=== PATIENT | male | born 1990 | race Caucasian/White ===

== ENCOUNTER 2022-08-09 16:28 | Outpatient (CLI) | payer OTHER, SELFPAY ==
[2022-08-09 17:13] LABS: Lipase 33 U/L (13-60)
== END 2022-08-09 16:29 | disposition home or self-care (01) ==
LOC: LAB 16:29
PROVIDERS: PCP Family Medicine; Visit Provider Family Medicine
DX: R10.9 Unspecified abdominal pain (principal)
CPT/HCPCS: 83690

== ENCOUNTER → 2022-08-18 15:16 | Outpatient (BNVA) | payer OTHER, SELFPAY | PROVIDERS: PCP Family Medicine; Visit Provider Family Medicine | DX: B19.20 Unspecified viral hepatitis C without hepatic coma (principal); R10.9 Unspecified abdominal pain | CPT/HCPCS: 80053; 84443; 85025; 87522 ==

== ENCOUNTER 2022-10-04 17:42 | Emergency (ER) | payer OTHER, SELFPAY ==
[2022-10-04 18:16] VITALS: BP 135/76; PULSE 90; RESP 14; TEMP 36.7; O2SAT 98; BMI 23.5
--- NOTE | 2022-10-04 18:54 | W.ED.EXTPRO ---
HPI - Extremity Problem General: Chief complaint: Extremity Injury, Lower Stated complaint: Lower hip pain Time Seen by Provider: 10/04/22 17:59 History of Present Illness: Patient is a 32-year-old male that comes to the ED with right lower back pain. Patient says he was skateboarding and doing a lot of alleys. He thinks he strained his right lower back from skateboarding. He says he has had this pain in the past. Pain is rated an 8 out of 10 and it radiates down into his right thigh. Denies any bladder or bowel incontinence, lower extremity weakness or any pelvic anesthesia. Associated symptoms: Deny chest pain, fever(s) or rash Review of Systems Const: Denies: fever(s), chills or fatigue Eyes: Denies: change in vision or eye discomfort ENMT: Denies: throat pain, odynophagia, nasal discharge or nasal congestion Card: Denies: chest pain, palpitations, edema, swelling of feet/ankles, dyspnea on exertion or orthopnea Resp: Denies: dyspnea, productive cough or non-productive cough GI: Denies: abdominal pain, nausea, vomiting, diarrhea, constipation or hematochezia : Denies: flank pain, difficulty urinating, dysuria or hematuria Musc: Reports: back pain; Denies: neck pain or extremity swelling Skin/Breast: Denies: rash or new lesions Neuro: Denies: headache(s), numbness in extremities or weakness in extremities [facility] ED PFSH: Medical History Hepatitis C infection History of substance abuse Surgical History No history of previous surgery Family History Mother Cancer lymphoma Other Hypertension Denies family history of Diabetes CAD (coronary artery disease) Dementia Chronic kidney disease (CKD) Stroke Social History Smoking and tobacco status: former smoker Quit status (tobacco): has quit using tobacco Year quit tobacco: 2021 Alcohol intake: former Other details last substance use: hx iv drugs, meth, cocaine, opiods Number of children: 2 service: No Current occupational status: employed Current occupation: [id number] Physical Exam Const: COMMON NORMALS: no acute distress, patient oriented x3, healthy appearing and alert HENMT: COMMON NORMALS: normocephalic HEAD & SCALP: normocephalic MOUTH: Normal oral and palatal mucosa present THROAT: posterior oropharynx normal and uvula midline Neck/C-Spine: COMMON NORMALS: supple GENERAL: Yes normal visual inspection Resp: COMMON NORMALS: normal respiratory effort, No retractions, No use of accessory muscles and clear to auscultation bilaterally AUSCULTATION: clear to auscultation bilaterally Cardio: COMMON NORMALS: regular rate, regular rhythm, S1 normal heart sound present, S2 normal heart sound present, No gallops present (Cardio), No clicks present (Cardio), No murmurs present (Cardio) and Peripheral pulses 2+ throughout RATE: regular rate RHYTHM: regular rhythm HEART SOUNDS: S1 normal heart sound present and S2 normal heart sound present PERIPHERAL PULSES: Peripheral pulses 2+ throughout GI: COMMON NORMALS: Normal to inspection, nondistended, normoactive bowel sounds present, Soft to palpation, non-tender and no masses PALPATION: Yes Soft to palpation : COMMON NORMALS: Yes no CVA tenderness BLADDER/KIDNEY EXAM: Yes no CVA tenderness Back/Pelvis: COMMON NORMALS: no CVA tenderness LUMBAR SPINE/LOWER BACK: Yes normal to inspection, Yes lumbar ROM normal, No lumbar spinal tenderness and Yes paraspinal muscle tenderness Lumbar paraspinal muscle tenderness: right Right lumbar paraspinal muscle tenderness: L4 and L5 Extremity: COMMON NORMALS: normal to inspection Neuro: COMMON NORMALS: patient oriented x3 SENSORIUM/ORIENTATION: Yes alert GAIT: Yes Normal gait present Skin: GENERAL SKIN EXAM: dry skin Course Vital Signs: Vital signs: Vital Signs Temperature 98.0 F 10/04/22 18:16 Pulse Rate 90 10/04/22 18:16 Respiratory Rate 14 10/04/22 18:16 Blood Pressure 135/76 10/04/22 18:16 Pulse Oximetry 98 10/04/22 18:16 Oxygen Delivery Me thod 10/04/22 18:16 MDM - Extremity (Nontraumatic) Medical Decision Making Patient is a 32-year-old male that comes to the ED with right lower back pain. Patient says he was skateboarding and doing a lot of alleys. He thinks he strained his right lower back from skateboarding. He says he has had this pain in the past. Pain is rated an 8 out of 10 and it radiates down into his right thigh. Denies any bladder or bowel incontinence, lower extremity weakness or any pelvic anesthesia. Vitals are stable. Patient has some right sided paraspinal lumbar muscle tenderness. Rest of exam is benign and patient appears in no acute distress. He is given a dose of Toradol and Norflex here in the ED. He was stable for discharge home and diagnosed with a strain of lumbar region and discharged home with a prescription for Celebrex and a muscle relaxer. Follow-up with PCP in the next week for reevaluation. Patient understood and agreed with plan. Discharge Plan Discharge Patient Disposition: Home Clinical Impression: Strain of lumbar region Qualifiers: Encounter type: initial encounter Qualified Code(s): S39.012A - Strain of muscle, fascia and tendon of lower back, initial encounter Condition: Stable Prescriptions: New Celebrex 100 mg capsule 100 mg PO BID PRN (Reason: pain) Qty: 30 0RF cyclobenzaprine 10 mg tablet 10 mg PO BID PRN (Reason: muscle spasm) Qty: 20 0RF No Action omeprazole 20 mg capsule,delayed release(DR/EC) 20 mg PO DAILY Discharge Orders: Discharge ED (Routine); Ordered 10/04/22 Ordered By: Charly Huff Referrals: Jennifer Larkin MD [Primary Care Provider] - Discharge Diet: Regular Discharge Activity: Increase activity as tolerated Activity Restrictions/Additional Instructions: Follow-up with medical provider as directed. Take medications as prescribed. Return to the ER or your medical provider if condition worsens. Please read and understand discharge instructions. Thank you for choosing [facility] for your healthcare needs today. Please realize this is an emergency room and that we are providing you with a medical screening exam and this may not be complete and all inclusive of all the testing and or work up that you may need to determine your ailment or severity of your illness. It is very important that you follow up as instructed or that you return to the Emergency Department should you have concerns or if your condition changes or worsens in any way. Coding Level of Care Code ED Wound Treatment Rn for Poncho Chavez Exam Comprehensive
[2022-10-04] MEDS: orphenadrine 30 mg/mL Inj 2 mL 60 MG IM (19:05)
[2022-10-04] MEDS: ketorolac 60 mg/2 mL INJ IM (19:07)
== END 2022-10-04 19:29 | disposition home or self-care (01) ==
PROVIDERS: Emergency Provider Physician Assistant; PCP Family Medicine
DX: S39.012A Strain of muscle, fascia and tendon of lower back, initial encounter (principal); Z87.891 Personal history of nicotine dependence; Z86.19 Personal history of other infectious and parasitic diseases; X50.9XXA Other and unspecified overexertion or strenuous movements or postures, initial encounter; Y93.51 Activity, roller skating (inline) and skateboarding
CPT/HCPCS: 96372; 99284; J1885; J2360

== ENCOUNTER 2023-01-05 10:23 | Inpatient (IN) | payer MEDICAID, SELFPAY ==
[2023-01-05] VITALS (7 sets, daily range): BP systolic 129–156; BP diastolic 85–119; PULSE 82–97; RESP 15–20; TEMP 36.2–37.1; O2SAT 97–100; BMI 22.9
--- NOTE | 2023-01-05 10:24 | W.ED.PSYCHS ---
HPI - Psych General: Chief Complaint: Psychiatric Symptoms Stated Complaint: SUICIDAL IDEATIONS Time Seen by Provider: 01/05/23 10:24 Limitations: other History of Present Illness: Mr Barreto is a 32-year-old gentleman with apparent history of substance abuse and hepatitis C per chart review presenting to the emergency department for psychiatric evaluation. The patient himself declines to answer any questions. Apparently last night or sometime this morning he told his mother that he wanted to kill himself. He possibly ingested 3 bottles of liquid Benadryl. He was brought to [facility] and at that time similarly did not participate in evaluation and was referred to the emergency department. Review of Systems General: Reports: Other PFS ED PFSH: Medical History Hepatitis C infection History of substance abuse Surgical History No history of previous surgery Family History Mother Cancer lymphoma Other Hypertension Denies family history of Diabetes CAD (coronary artery disease) Dementia Chronic kidney disease (CKD) Stroke Social History Quit status (tobacco): has quit using tobacco Year quit tobacco: 2021 Alcohol intake: former Other details last substance use: hx iv drugs, meth, cocaine, opiods Number of children: 2 service: No Current occupational status: employed Current occupation: warehouse Physical Exam Const: COMMON NORMALS: alert GENERAL APPEARANCE: cooperative and well developed HENMT: COMMON NORMALS: normocephalic and atraumatic HEAD & SCALP: normocephalic and atraumatic Eye: COMMON NORMALS: conjunctivae normal CONJUNCTIVA: Yes conjunctivae normal SCLERA: sclerae normal Neck/C-Spine: COMMON NORMALS: supple GENERAL: Yes trachea midline Resp: COMMON NORMALS: normal respiratory effort EFFORT & INSPECTION: Yes able to speak in complete sentences Cardio: COMMON NORMALS: regular rate and regular rhythm RATE: regular rate RHYTHM: regular rhythm GI: COMMON NORMALS: Soft to palpation PALPATION: Yes Soft to palpation and No Tenderness to palpation present (GI) PERCUSSION: normal to percussion Extremity: GENERAL: Yes normal exam except as noted and No edema Neuro: COMMON NORMALS: moves all extremities SENSORIUM/ORIENTATION: Yes alert and No Orientation impaired OTHER: Appears to regard appropriately. He phonates as expected to stimuli, no evidence of airway compromise. Psych: ATTITUDE: Yes uncooperative Course Vital Signs: Vital signs: Vital Signs Temperature 98.3 F 01/18/23 21:55 Pulse Rate 76 01/18/23 21:55 Respiratory Rate 16 01/18/23 21:55 Blood Pressure 110/70 01/18/23 21:55 Pulse Oximetry 97 01/18/23 21:55 Oxygen Delivery Me thod Room Air 01/18/23 21:55 MDM - Psych Medical Decision Making 32-year-old gentleman presenting to the emergency department quite uncooperative for psychiatric evaluation with possible history of Benadryl ingestion. Exam as above. EKG demonstrates sinus rhythm with normal axis and intervals, there are mild nonspecific ST segment abnormalities, overall similar on repeat and inconsistent with obvious toxidrome related changes. No STEMI. Labs with no significant hematologic or metabolic abnormality with exception of elevated bilirubin. Patient does not have right upper quadrant tenderness and transaminases are normal. No reported history of biliary pathology. Toxic ingestions are negative. UDS positive for THC. Given physical exam and clinical history provided there is no indication for imaging at this time. Based on ED evaluation at this point there is no obvious condition that would preclude the patient from inpatient management of psychiatric concerns/symptoms. The results of ED evaluation were discussed with the patient including plan for admission due to requirement for level of care not available if discharged to prevent significant worsening/deterioration. Patient improved on reassessment. He is able to communicate and there is no evidence of worsening toxidrome. Discussed with psychiatry service who was agreeable to admit patient. Medical Records I reviewed the patient's medical records. Lab Data I reviewed the patient's lab results. 01/05/23 10:49 01/05/23 10:49 Laboratory Results WBC 9.7 10^3/uL (4.0-10.0) 01/05/23 10:49 RBC 5.73 10^6/uL (4.1-5.3) H 01/05/23 10:49 Hgb 15.5 g/dL (11.7-16.6) 01/05/23 10:49 Hct 47.2 % (42.0-52.0) 01/05/23 10:49 MCV 82.4 fl (80-94) 01/05/23 10:49 MCH 27.1 pg (28.0-34.0) L 01/05/23 10:49 MCHC 32.8 g/dL (30.0-36.0) 01/05/23 10:49 RDW 12.3 % (12.1-15.1) 01/05/23 10:49 Plt Count 417 10^3/cmm (130-400) H 01/05/23 10:49 MPV 9.5 fL (7.4-10.4) 01/05/23 10:49 Neut % (Auto) 65.1 % 01/05/23 10:49 Lymph % (Auto) 25.3 % 01/05/23 10:49 [place] % (Auto) 8.4 % 01/05/23 10:49 Eos % (Auto) 0.4 % 01/05/23 10:49 Baso % (Auto) 0.4 % 01/05/23 10:49 Neut # (Auto) 6.34 10^3/uL (1.8-7.7) 01/05/23 10:49 Lymph # (Auto) 2.5 10^3/uL (0.8-4.8) 01/05/23 10:49 [place] # (Auto) 0.8 10^3/uL (0.2-0.9) 01/05/23 10:49 Eos # (Auto) 0.0 10^3/uL (0.0-0.8) 01/05/23 10:49 Baso # (Auto) 0.0 10^3/uL (0.0-0.1) 01/05/23 10:49 Nucleated RBC % (auto) 0 % 01/05/23 10:49 Nucleated RBCs # 0.0 /100WBC 01/05/23 10:49 Sodium 140 mmol/L (136-145) 01/05/23 10:49 Potassium 3.9 mmol/L (3.5-5.1) 01/05/23 10:49 Chloride 102 mmol/L (98-107) 01/05/23 10:49 Carbon Dioxide 23 mmol/L (22-29) 01/05/23 10:49 Anion Gap 18.9 (5-19) 01/05/23 10:49 BUN 28 mg/dL (6-20) H 01/05/23 10:49 Creatinine 1.1 mg/dL (0.7-1.2) 01/05/23 10:49 GFR Calculation 77.1 mL/min (90-130) L 01/05/23 10:49 Glucose 94 mg/dL (65-115) 01/05/23 10:49 Calculated Osmolality 295 mOsm/kg (285-295) 01/05/23 10:49 Calcium 9.6 mg/dL (8.5-10.5) 01/05/23 10:49 Total Bilirubin 1.9 mg/dL (0.15-1.2) H 01/05/23 10:49 AST 9 U/L (0-40) 01/05/23 10:49 ALT 8 U/L (0-41) 01/05/23 10:49 Alkaline Phosphatase 65 U/L (40-130) 01/05/23 10:49 Total Protein 8.7 g/dL (6.6-8.7) 01/05/23 10:49 Albumin 5.0 g/dL (3.5-5.2) 01/05/23 10:49 Globulin 3.7 g/dL (1.3-4.6) 01/05/23 10:49 TSH 0.99 uIU/mL (0.27-4.20) 01/05/23 10:49 Salicylates 0.5 mg/dL (3-10) L 01/05/23 10:49 Acetaminophen < 5.0 ug/mL (10-30) L 01/05/23 10:49 Ethyl Alcohol < 10 mg/dL (0-10) 01/05/23 10:49 Discharge Plan Discharge Patient Disposition: Admitted As Inpatient Admit Provider: Rob Pierce Clinical Impression: Acute psychosis, Suicidal ideation, Overdose Condition: Stable Coding Level of Care Code ED Switchboard Mechanic for Poncho Chavez
--- NOTE | 2023-01-05 10:35 | PC.NURSE ---
pt will not answer questions for staff. pt appears alert and VSS
[2023-01-05 11:05] LABS: Basophils % 0.4 %; Eosinophils % 0.4 %; Hematocrit 47.2 % (42.0-52.0); Hemoglobin 15.5 g/dL (11.7-16.6); Lymphocytes # 2.5 10^3/uL (0.8-4.8); Lymphocytes % 25.3 %; Mean Corpuscular HGB Conc 32.8 g/dL (30.0-36.0); Mean Corpuscular Hemoglobin 27.1 pg (28.0-34.0); Mean Corpuscular Volume 82.4 fl (80-94); Mean Platelet Volume 9.5 fL (7.4-10.4); Monocytes # 0.8 10^3/uL (0.2-0.9); Monocytes % 8.4 %; Neutrophils # 6.34 10^3/uL (1.8-7.7); Neutrophils % 65.1 %; Nucleated Red Blood Cells % 0 %; Platelet Count 417 10^3/cmm (130-400); Red Blood Count 5.73 10^6/uL (4.1-5.3); Red Cell Distribution Width 12.3 % (12.1-15.1); White Blood Count 9.7 10^3/uL (4.0-10.0)
--- NOTE | 2023-01-05 11:28 | ECG_ITS ---
[facility] Test Date: 2023-01-05 Pat Name: Lew Barreto Department: Room: Gender: Male Cell Manager: : 1990 Requested By: Ross Duran Order Number: [id number] Atul MD: Taz Byrd M.D. Measurements Intervals [place] Rate: 77 P: 61 PA: 134 QRS: 82 QRSD: 84 T: -1 QT: 373 QTc: 424 Interpretive Statements SINUS RHYTHM NONSPECIFIC T-WAVE ABNORMALITY No previous ECG available for comparison Electronically Signed On 01-06-2023 0:20:13 CDT by Taz Byrd M.D. [id number]
[2023-01-05 11:33] LABS: Alanine Aminotransferase 8 U/L (0-41); Alkaline Phosphatase 65 U/L (40-130); Aspartate Amino Transferase 9 U/L (0-40); Blood Urea Nitrogen 28 mg/dL (6-20); Calcium 9.6 mg/dL (8.5-10.5); Carbon Dioxide 23 mmol/L (22-29); Globulin 3.7 g/dL (1.3-4.6); Glomerular Filtration Rate 77.1 mL/min (90-130); Glucose 94 mg/dL (65-115); Salicylate 0.5 mg/dL (3-10); Thyroid Stimulating Hormone 0.99 uIU/mL (0.27-4.20); Total Bilirubin 1.9 mg/dL (0.15-1.2); Total Protein 8.7 g/dL (6.6-8.7)
--- NOTE | 2023-01-05 11:36 | ECG_ITS ---
[facility] Test Date: 2023-01-05 Pat Name: Lew Barreto Department: Room: Gender: Male Classifier: : 1990 Requested By: Ross Duran Order Number: [id number] Atul MD: Taz Byrd M.D. Measurements Intervals [place] Rate: 75 P: 75 MN: 140 QRS: 83 QRSD: 90 T: 39 QT: 382 QTc: 428 Interpretive Statements SINUS RHYTHM POSSIBLE LEFT ATRIAL ENLARGEMENT [-0.1mV P-WAVE IN V1/V2] NONSPECIFIC T-WAVE ABNORMALITY Compared to ECG 01/05/2023 10:44:54 No significant changes Electronically Signed On 01-06-2023 0:21:37 CDT by Taz Byrd M.D. [id number]
[2023-01-05 11:52] LABS: Anion Gap 18.9 (5-19); Chloride 102 mmol/L (98-107); Osmolality Calculated 295 mOsm/kg (285-295); Potassium 3.9 mmol/L (3.5-5.1); Sodium 140 mmol/L (136-145)
[2023-01-05 11:54] LABS: Acetaminophen < 5.0 ug/mL (10-30); Alcohol Level < 10 mg/dL (0-10)
--- NOTE | 2023-01-05 17:30 | PC.NURSE ---
Pt informed of need for UA. He verbalized his understanding.
[2023-01-05 19:08] LABS: Amphetamines Screen Urine Negative (Negative); Barbiturates Screen Urine Negative (Negative); Benzodiazepines Screen Urine Negative (Negative); Cocaine Screen Urine Negative (Negative); Opiate Screen Urine Negative (Negative); PCP Screen Urine Negative (Negative); THC Screen Urine Positive (Negative)
[2023-01-05] MEDS: trazodone 50 mg Tablet PO (22:56)
[2023-01-05] MEDS: OLANZapine 5 mg ODT PO (22:56)
[2023-01-06 06:00] VITALS: RESP 16
--- NOTE | 2023-01-06 06:22 | PC.NURSE ---
at 2300 pt confused, attempted to walk in another peer room, walked in patient bath room looking lost unsure how to turn light on, RN assisted and turned light on, pt staring around and touching walker, standing on toilet seat, RN and PHOTOGRAPHIC PROCESS SCREEN MAKER assisted to floor and bed for patient safety. Zydis and Trazodone given.
--- NOTE | 2023-01-06 06:23 | PC.NURSE ---
at 0600 asked RN to help him go to restroom, pt confused needed assistance to get up, able to walk on his own, didn't know what to do when he was in the restroom, for patient safety RN asked patient to please sit down on toilet. RN stood outside of restroom. RN could hear pt stating oh no oh my I can't RN asked pt if he able to urinate? pt confused unable to answer. RN asked pt to please stand up and cherry picker operator his pants. Assisted pt to bed safely, pt did urinate - yellow in color. pt given fluids to drinks- pt doesn't know how to drink from the cup, RN assisted pt and showed him to lift cup to his mouth. pt drank water.
--- NOTE | 2023-01-06 09:17 | PC.OT ---
OT EVALUATION HELD DUE TO PATIENT COGNITIVELY UNABLE TO PARTICIPATE IN EVALUATION AT THIS TIME. EVALUATION TO BE ATTEMPTED AGAIN AT A LATER TIME.
--- NOTE | 2023-01-06 13:32 | P.NPUHP_ITS ---
Providers/Chief Complaint Admitting Physician: Rob Pierce MD Primary Care Provider: Jennifer Larkin MD Chief Complaint: SUICIDAL IDEATIONS HPI NPU History of Present Illness Lew Barreto is a 32 year old male to the emergency department with the following report: Chief Complaint: Psychiatric Symptoms Stated Complaint: SUICIDAL IDEATIONS Time Seen by Provider: 01/05/23 10:24 Limitations: other History of Present Illness: Mr Barreto is a 32-year-old gentleman with apparent history of substance abuse and hepatitis C per chart review presenting to the emergency department for psychiatric evaluation. The patient himself declines to answer any questions. Apparently last night or sometime this morning he told his mother that he wanted to kill himself. He possibly ingested 3 bottles of liquid Benadryl. He was brought to [facility] and at that time similarly did not participate in evaluation and was referred to the emergency department. He was admitted to the neuropsychiatric unit for definitive treatment of those issues. He presents today as a fairly limited historian. No spontaneous conversation and very limited responses to questions. When asked what brought him to the hospital. He perseverated multiple times seeming to mumble under his breath brought to the hospital. I had to once again cue him to try to get an answer which never came. Eventually I suggested that there was a report from his family that he was feeling suicidal. He made some gesture with his head but it was unclear whether that was a yes or no and he would not repeat that movement. He seemed to answer no to previously being in a psychiatric hospital by nodding. But then could later not give any response to other questions about previous psychiatric care. He did not answer questions in any appreciable way to questions about tobacco, alcohol marijuana or any other illicit drug use. He did not answer any questions related to current or past medications. He reportedly came with some kratom. There were concerns as stated above for an intentional overdose of Benadryl either as a suicide attempt or possibly as a mood altering substance. I was unable to elicit any other responses to questions during the interview. An excerpt of his in person crisis appointment from yesterday is included below for context and given his limited functioning as a historian. Per his 01/05/2023 [facility] outpatient crisis appointment: Primary problem of call:: Currently Suicidal Treatment Team:: Client is not in services with [facility] Is person in crisis currently taking any medications?: Unknown Does person in crisis currently use alcohol or drugs?: Unknown Does person in crisis have any known medical conditions?: Unknown Intervention: Contacted 911/Law Enforcement for Involuntary Residential/Active Rescue Final Disposition Supports Utilized:: Phone call to/dicussion of case with: (ER, courthouse, 911, ambulance. ) Phone Call to/discussion of case with:: [facility] Personnel Actions taken narrative:: Lew Barreto presented to [facility] today with his mother Janice House and his grandmother Monique Mauro. Janice stated to the front desk associate that the client was suicidal. [facility] was contacted. [facility] called the client to come to the crisis office, he started to walk out the front doors. [facility] called the client's name several times before he seen where the staff was standing. Lew walked with [facility] to the crisis office. Janice stayed in the waiting room with the grandmother. [facility] asked Lew a question and he was unresponsive. He had his head hung low and seemed to be zoning out. He put his paperwork down and then laid his head in a sweatshirt. [facility] got his mother to see if he would respond to her and he would not. He ended up laying in an oversized chair in [facility] office. Janice reports that at 3am he told her that he wanted to kill himself. He did not say how he would kill himself. Wiley talked with Janice about him going to the ER; she agreed he must. Client Response to Intervention:: [facility] then called an ambulance to come to take him to the ER. He was not responsive to them and had to be carried out to the ambulance. Client's mother Janice reports that she found three bottles of Benadryl in the trash this morning. She also reports that he had odd behavior in the home. She said he stood in front of the washing machine for two hours saying that it is filling up with hot air. She reports that he talks about things that are not there. She reports he lost his job three days ago and has gone downhill since. Final Disposition:: [facility] and the client's mother Janice filled out [id number] paperwork. It was faxed to the ER and to the [facility]. [facility] called the ER and the courthouse. The ambulance and the police were at [facility], and the client was transported to the ER. Meds NPU Home Medications Medication Instructions Recorded Confirmed Last Taken Type Kratom See Rx Instructions .Route .COMPLEX 01/05/23 01/05/23 01/05/23 History Allergies Allergy/AdvReac Type Severity Reaction Status Date / Time No Known Allergies Allergy Verified 08/09/22 15:40 PFSH NPU PFSH: Medical History Hepatitis C infection History of substance abuse Surgical History No history of previous surgery Family History Mother Cancer lymphoma Other Hypertension Denies family history of Diabetes CAD (coronary artery disease) Dementia Chronic kidney disease (CKD) Stroke Social History Quit status (tobacco): has quit using tobacco Year quit tobacco: 2021 Alcohol intake: former Other details last substance use: hx iv drugs, meth, cocaine, opiods Number of children: 2 service: No Current occupational status: employed Current occupation: [employer] Mental Status Exam MSE Comments: This is a well-nourished well-developed white male in hospital scrubs with limited grooming and absent eye contact. Notable tattoos on exposed skin. No abnormal movements except for profound psychomotor retardation. Almost appearing catatonic. Uncooperative with exam appearing somewhat distraught. Speech was nearly nonexistent except for those perseverative phrases about being brought to the hospital. And decreased rate and volume with some mumbling on a couple occasions. Mood not described, affect distraught. Thought process. Linear versus disorganized. Thought content: Patient did not answer questions about lethality but did not appear to have aggressive behavior towards himself or others, there were no delusions reported and possible paranoia or guardedness noted, he did not report auditory or visual hallucination. Attention, concentration and memory appeared impaired, but none were formally tested. He appeared alert to his name. Insight judgment and impulse control impaired. Vitals/I&O/Wt Last Vital Signs Temp 97.2 F L 01/05/23 22:00 Pulse 91 01/05/23 22:00 Resp 16 01/06/23 06:00 BP 149/100 01/05/23 22:00 Pulse Ox 97 01/05/23 22:00 O2 Del Method 01/05/23 22:00 Weight last 48 hrs Weight 72.575 kg Data NPU 01/05/23 10:49 01/05/23 10:49 A&P Assessment and plan (1) Acute psychosis: (2) Suicidal ideation: (3) Overdose: (4) History of substance abuse: (5) Hepatitis C infection: Plan This is a 32-year-old white male with a history of addiction presented to the emergency department with reports of concerns for suicidality who was admitted to the neuropsychiatric unit with altered mental status possible psychosis and depression currently nonverbal appearing essentially catatonic with no offerings to assist in the evaluation or treatment process. 1. Attempt to initiate Abilify versus Invega to assist with the apparent psychosis. Consider Ativan 1 mg every 4 to 6 hours for possible catatonia. 2. Continue every 15 minute checks for safety. 3. Encourage individual, group and milieu therapies. 4. Encourage sober living treatment after discharge at the highest level of care to which he is willing to commit. Involuntary Hold Information 96 Hour Hold: 96 Hour Involuntary Admission: Yes 96 Hour Hold Ending Date: 01/12/23 96 Hour Hold Ending Time: 12:00 Attestations NPU Medical Necessity Statement*: Inpatient hospitalization is medically necessary and the clinically appropriate intervention at this time. We will monitor/initiate medications and make changes as indicated. He will be in the hospital for over 2 midnights. Likely length of stay 7 to 10 days. Coding Level of Care Code Acute Code for Chg Fwd Diagnoses Acute psychosis F23 Suicidal ideation R45.851 Overdose T50.901A History of substance abuse F19.11 Hepatitis C infection B19.20
[2023-01-06 14:00] VITALS: BP 127/87; PULSE 96; RESP 18; TEMP 36.7; O2SAT 96
[2023-01-06 22:00] VITALS: BP 125/91; PULSE 94; RESP 18; TEMP 36.4; O2SAT 98
[2023-01-06] MEDS: OLANZapine 5 mg ODT PO (23:15)
[2023-01-07 06:00] VITALS: RESP 18
--- NOTE | 2023-01-07 08:34 | PC.OT ---
OT Sae Attempted - Patient in bed in room at time of evaluation, attempted to get patient to participate in evaluation and patient laid in bed swirling thumbs and would not respond. Will attempt again later.
--- NOTE | 2023-01-07 13:38 | W.PM.NPUPNS ---
Subjective NPU Subjective: Patient presented today continuing to be fairly nonverbal. At 1 point he did pose the question am I schizophrenic? Otherwise he was mostly nonresponsive to questions but he did report that he would consider taking the Invega to help with the symptoms that he is suffering from. Mental Status Exam MSE Comments: This is a well-nourished well-developed white male in hospital scrubs with limited grooming and absent eye contact. Notable tattoos on exposed skin. No abnormal movements except for profound psychomotor retardation. Almost appearing catatonic. Uncooperative with exam appearing somewhat distraught. Speech continues to lack spontaneity with decreased rate and volume with some mumbling on a couple occasions. Mood not described, affect distraught. Thought process. Linear versus disorganized. Thought content: Patient did not answer questions about lethality but did not appear to have aggressive behavior towards himself or others, there were no delusions reported and possible paranoia or guardedness noted, he did not report auditory or visual hallucination. Attention, concentration and memory appeared impaired, but none were formally tested. He appeared alert to his name. Insight, judgment and impulse control impaired. Vitals/I&O/Wt Last Vital Signs Temp 97.6 F 01/06/23 22:00 Pulse 94 01/06/23 22:00 Resp 18 01/07/23 06:00 BP 125/91 01/06/23 22:00 Pulse Ox 98 01/06/23 22:00 O2 Del Method 01/06/23 22:00 Data NPU 01/05/23 10:49 01/05/23 10:49 A&P Assessment and plan (1) Acute psychosis: (2) Suicidal ideation: (3) Overdose: (4) History of substance abuse: (5) Hepatitis C infection: Plan This is a 32-year-old white male with a history of addiction presented to the emergency department with reports of concerns for suicidality who was admitted to the neuropsychiatric unit with altered mental status possible psychosis and depression currently nonverbal appearing essentially catatonic with no offerings to assist in the evaluation or treatment process. 1. Initiate Invega 6 mg p.o. daily for psychosis. Consider Ativan 1 mg every 4 to 6 hours for possible catatonia. 2. Continue every 15 minute checks for safety. 3. Encourage individual, group and milieu therapies. 4. Encourage sober living treatment after discharge at the highest level of care to which he is willing to commit. Involuntary Hold Information 96 Hour Hold: 96 Hour Involuntary Admission: Yes 96 Hour Hold Ending Date: 01/12/23 96 Hour Hold Ending Time: 12:00 Attestations NPU Medical Necessity Statement*: Inpatient hospitalization is medically necessary and the clinically appropriate intervention at this time. We will monitor/initiate medications and make changes as indicated. Likely length of stay 7 to 10 days. Coding Level of Care Code Acute Code for g Fwd Diagnoses Acute psychosis F23 Suicidal ideation R45.851 Overdose T50.901A History of substance abuse F19.11 Hepatitis C infection B19.20
[2023-01-07 14:00] VITALS: BP 127/85; PULSE 87; RESP 16; TEMP 36.8; O2SAT 97
--- NOTE | 2023-01-07 15:27 | PC.OT ---
OT Sae [place] - Patient found sitting in day room but would not look up and was not responsive to this therapist. Will attempt again at a later date.
[2023-01-07] MEDS: OLANZapine 5 mg ODT PO (18:35)
--- NOTE | 2023-01-07 18:40 | PC.NURSE ---
Pt remains seated at the table in the day room. Tray is in front of him but pt not eating. Pt was able to tell staff his name and birthday. Took a zyprexa after staff explained what it was for. Pt was surprised when staff told him he was at [facility] in [place]. I'm messed up. Pt encouraged to drink fluids as his urine was reportedly dark. Pt said he'd been drinking water. Pt encouraged to continue to do so. Pt remains in day room.
[2023-01-07 20:54] VITALS: BP 135/100; PULSE 91; RESP 18; TEMP 37; O2SAT 98
[2023-01-08 06:00] VITALS: RESP 16
--- NOTE | 2023-01-08 09:36 | P.NPUPN_ITS ---
Subjective NPU Subjective: Patient presented today reporting that he is scared. He continues to appear fretful and be isolative. Sometimes he is in his room with the blankets completely covering him. He was agreeable to take the Invega with very significant coaxing. Otherwise continues to appear fairly catatonic. Mental Status Exam MSE Comments: This is a well-nourished well-developed white male in hospital scrubs with limited grooming and absent eye contact. Notable tattoos on exposed skin. No abnormal movements except for profound psychomotor retardation. Almost appearing catatonic. Uncooperative with exam appearing somewhat distraught. Speech continues to lack spontaneity with decreased rate and volume with some mumbling on a couple occasions. Mood not described, affect distraught. Thought process. Linear versus disorganized. Thought content: Patient did not answer questions about lethality but did not appear to have aggressive behavior towards himself or others, there were no delusions reported and possible paranoia or guardedness noted, he did not report auditory or visual hallucination. Attention, concentration and memory appeared impaired, but none were formally tested. He appeared alert to his name. Insight, judgment and impulse control impaired. Vitals/I&O/Wt Last Vital Signs Temp 98.6 F 01/07/23 20:54 Pulse 91 01/07/23 20:54 Resp 16 01/08/23 06:00 BP 135/100 01/07/23 20:54 Pulse Ox 98 01/07/23 20:54 O2 Del Method 01/07/23 20:54 Data NPU 01/05/23 10:49 01/05/23 10:49 A&P Assessment and plan (1) Acute psychosis: (2) Suicidal ideation: (3) Overdose: (4) History of substance abuse: (5) Hepatitis C infection: Plan This is a 32-year-old white male with a history of addiction presented to the e mergency department with reports of concerns for suicidality who was admitted to the neuropsychiatric unit with altered mental status possible psychosis and depression currently nonverbal appearing essentially catatonic with no offerings to assist in the evaluation or treatment process. 1. Initiate Invega 6 mg p.o. daily for psychosis. Consider Ativan 1 mg every 4 to 6 hours for possible catatonia. 2. Continue every 15 minute checks for safety. 3. Encourage individual, group and milieu therapies. 4. Encourage sober living treatment after discharge at the highest level of care to which he is willing to commit. Involuntary Hold Information 96 Hour Hold: 96 Hour Involuntary Admission: Yes 96 Hour Hold Ending Date: 01/12/23 96 Hour Hold Ending Time: 12:00 Attestations NPU Medical Necessity Statement*: Inpatient hospitalization is medically necessary and the clinically appropriate intervention at this time. We will monitor/initiate medications and make changes as indicated. Likely length of stay 7 to 10 days. Coding Level of Care Code Acute Code for Chg Fwd Diagnoses Acute psychosis F23 Suicidal ideation R45.851 Overdose T50.901A History of substance abuse F19.11 Hepatitis C infection B19.20
[2023-01-08] MEDS: paliperidone ER 6 mg Tablet PO (11:36)
[2023-01-08 14:00] VITALS: BP 119/77; PULSE 88; RESP 16; TEMP 36.9; O2SAT 97
[2023-01-08 20:12] VITALS: BP 123/82; PULSE 114; RESP 16; TEMP 36.6; O2SAT 98
[2023-01-09 06:00] VITALS: BP 113/75; PULSE 99; RESP 16; TEMP 36.7; O2SAT 97
--- NOTE | 2023-01-09 06:33 | PC.NURSE ---
at shift change pt was offered sandwich, drink, and snacks. pt refused. Encouraged him to eat and driink. no response.
[2023-01-09] MEDS: ondansetron 4 MG Tablet PO ×2 (06:55→15:09)
--- NOTE | 2023-01-09 07:09 | W.PM.NPUPNS ---
Subjective NPU Subjective: Patient presented today reporting that he is feeling sick like he might throw up. He continues to appear fretful and be isolative. Sometimes he is in his room with the blankets completely covering him. He did not report any issues with the Invega. Otherwise continues to appear catatonic. Mental Status Exam MSE Comments: This is a well-nourished well-developed white male in hospital scrubs with limited grooming and absent eye contact. Notable tattoos on exposed skin. No abnormal movements except for profound psychomotor retardation. Almost appearing catatonic. Slightly more cooperative with exam appearing somewhat distraught. Speech continues to lack spontaneity with decreased rate and volume with some mumbling on a couple occasions. Mood described as feeling sick, affect distraught. Thought process. Linear versus disorganized. Thought content: Patient did not answer questions about lethality but did not appear to have aggressive behavior towards himself or others, there were no delusions reported and possible paranoia or guardedness noted, he did not report auditory or visual hallucination. Attention, concentration and memory appeared impaired, but none were formally tested. He appeared alert to his name. Insight, judgment and impulse control impaired. Vitals/I&O/Wt Last Vital Signs Temp 98.1 F 01/09/23 06:00 Pulse 99 01/09/23 06:00 Resp 16 01/09/23 06:00 BP 113/75 01/09/23 06:00 Pulse Ox 97 01/09/23 06:00 O2 Del Method 01/09/23 06:00 Weight last 48 hrs Weight 62.414 kg Data NPU 01/05/23 10:49 01/05/23 10:49 A&P Assessment and plan (1) Acute psychosis: (2) Suicidal ideation: (3) Overdose: (4) History of substance abuse: (5) Hepatitis C infection: Plan This is a 32-year-old white male with a history of addiction presented to the emergency department with reports of concerns for suicidality who was admitted to the neuropsychiatric unit with altered mental status possible psychosis and depression currently nonverbal appearing essentially catatonic with no offerings to assist in the evaluation or treatment process. 1. Initiate Invega 6 mg p.o. daily for psychosis. Consider Ativan 1 mg every 4 to 6 hours for possible catatonia. 2. Continue every 15 minute checks for safety. 3. Encourage individual, group and milieu therapies. 4. Encourage sober living treatment after discharge at the highest level of care to which he is willing to commit. Involuntary Hold Information 96 Hour Hold: 96 Hour Involuntary Admission: Yes 96 Hour Hold Ending Date: 01/12/23 96 Hour Hold Ending Time: 12:00 Attestations NPU Medical Necessity Statement*: Inpatient hospitalization is medically necessary and the clinically appropriate intervention at this time. We will monitor/initiate medications and make changes as indicated. Likely length of stay 7 to 10 days. Coding Level of Care Code Acute Code for Chg Fwd Diagnoses Acute psychosis F23 Suicidal ideation R45.851 Overdose T50.901A History of substance abuse F19.11 Hepatitis C infection B19.20
--- NOTE | 2023-01-09 12:34 | PC.NURSE ---
Pt refused morning med of 6mg Invega. Nurse educated pt on the drug and it's purpose.
[2023-01-09 14:00] VITALS: BP 118/76; PULSE 78; RESP 18; TEMP 36.7; O2SAT 98
[2023-01-09 20:10] VITALS: BP 118/82; PULSE 79; RESP 18; TEMP 36.8; O2SAT 97
[2023-01-10 06:00] VITALS: BP 122/75; PULSE 76; RESP 17; TEMP 36.4; O2SAT 100
--- NOTE | 2023-01-10 09:11 | PC.NURSE ---
attempted to educate patient on the importance of invega tablet. pt states they just gave me so many mediations already. I do not think i need it. attempted to educate pt as to the use and reason why he is getting it. will attempt to give medication after speaking with physician.
[2023-01-10 14:00] VITALS: BP 104/65; PULSE 79; RESP 16; TEMP 36.7; O2SAT 98
--- NOTE | 2023-01-10 16:33 | P.NPUPN_ITS ---
Subjective NPU Subjective: Patient is a 32-year-old male admitted with psychotic symptoms after reporting an overdose on Benadryl. He had continued to spend much of the day in his room and had blankets covering his face. He had remained somewhat confused with limited conversation noted. He had admitted to the use of craton. He had refused to take his Invega. He stated that he was unsure has if the medicine was going to make things worse or better. He had acknowledged having been in the hospital multiple times in the past but was nonspecific about why he had been psychiatrically hospitalized. Mental Status Exam MSE Comments: This is a thin white male in hospital scrubs with limited grooming and absent eye contact. Notable tattoos on exposed skin. No abnormal movements except for profound psychomotor retardation. He appeared slightly more cooperative with exam appearing somewhat distraught. Speech continues to lack spontaneity with decreased rate and volume with some mumbling on a couple occasions. Mood described as feeling sick , his affect was odd and subdued. Thought process was nonlinear. Thought content: There was an overall poverty of content. There was some evidence of paranoia. Attention, concentration and memory appeared impaired, but none were formally tested. He appeared alert to his name. He refused to answer the date or day of the week. Insight, judgment and impulse control were all impaired. Vitals/I&O/Wt Last Vital Signs Temp 98.0 F 01/10/23 14:00 Pulse 79 01/10/23 14:00 Resp 16 01/10/23 14:00 BP 104/65 01/10/23 14:00 Pulse Ox 98 01/10/23 14:00 O2 Del Method 01/10/23 14:00 Weight last 48 hrs Weight 62.414 kg Data NPU 01/05/23 10:49 01/05/23 10:49 A&P Assessment and plan (1) Acute psychosis: (2) Suicidal ideation: (3) Overdose: (4) History of substance abuse: (5) Hepatitis C infection: Plan This is a 32-year-old white male with a history of addiction presented to the emergency department with reports of concerns for suicidality who was admitted to the neuropsychiatric unit with altered mental status possible psychosis and depression currently nonverbal appearing essentially catatonic with no offerings to assist in the evaluation or treatment process. 1. Continue Invega 6 mg p.o. daily for psychosis. Consider Ativan 1 mg every 4 to 6 hours for possible catatonia. Patient refusing and may require forced medication. 2. Continue every 15 minute checks for safety. 3. Encourage individual, group and milieu therapies. 4. Encourage sober living treatment after discharge at the highest level of care to which he is willing to commit. Involuntary Hold Information 96 Hour Hold: 96 Hour Involuntary Admission: Yes 96 Hour Hold Ending Date: 01/12/23 96 Hour Hold Ending Time: 12:00 Attestations NPU Medical Necessity Statement*: Inpatient hospitalization is medically necessary and the clinically appropriate intervention at this time. We will monitor/initiate medications and make changes as indicated. Likely length of stay 7 to 10 days. Coding Level of Care Code Acute Code for [facility] Fwd Diagnoses Acute psychosis F23 Suicidal ideation R45.851 Overdose T50.901A History of substance abuse F19.11 Hepatitis C infection B19.20
[2023-01-10 19:55] VITALS: BP 123/72; PULSE 81; RESP 18; TEMP 36.9; O2SAT 97
[2023-01-11 06:00] VITALS: BP 118/77; PULSE 80; RESP 16; TEMP 36.9; O2SAT 98
[2023-01-11] MEDS: paliperidone ER 6 mg Tablet PO (07:26)
--- NOTE | 2023-01-11 13:15 | P.NPUPN_ITS ---
Subjective NPU Subjective: Patient is a 32-year-old male admitted with psychotic symptoms after reporting an overdose on Benadryl with suicidal ideation. Patient had continued to isolate himself in the room. He continued to struggle with his thoughts as he had stated that he felt that he was having something in his head that was interfering with his ability to speak. He had endorsed in the past having been treated in [place] with Zyprexa to help him with his thinking. He had stated that he was uncertain as to how many times he had been hospitalized but reported that his grandmother and mother who he resided with may be able to provide additional information. He had admitted to having had suicidal ideation and continued to appear somewhat guarded in regards to taking medication and required some prompting for eating as he appeared concerned about contamination of his food. Mental Status Exam MSE Comments: This is a thin white male in hospital scrubs with limited grooming and absent eye contact. Notable tattoos on exposed skin. No abnormal movements except for profound psychomotor retardation. He appeared somewhat guarded and uncooperative with exam appearing somewhat annoyed.. Speech continues to lack spontaneity with decreased rate and volume with some mumbling on a couple occasions. Mood described as feeling sick , his affect was odd and subdued. Thought process was nonlinear and did appear to derail during the interview. Thought content: There was an overall poverty of content. There was some evidence of paranoia. Attention, concentration and memory appeared impaired, but none were formally tested. He appeared alert to his name. He was able to describe where he was and the year and month but not the date or day of the week. Insight, judgment and impulse control were all impaired. Vitals/I&O/Wt Last Vital Signs Temp 98.5 F 01/11/23 06:00 Pulse 80 01/11/23 06:00 Resp 16 01/11/23 06:00 BP 118/77 01/11/23 06:00 Pulse Ox 98 01/11/23 06:00 O2 Del Method 01/11/23 06:00 Data NPU 01/05/23 10:49 01/05/23 10:49 A&P Assessment and plan (1) Acute psychosis: (2) Suicidal ideation: (3) Overdose: (4) History of substance abuse: (5) Hepatitis C infection: Plan This is a 32-year-old white male with a history of addiction presented to the emergency department with reports of concerns for suicidality who was admitted to the neuropsychiatric unit with altered mental status possible psychosis and depression currently nonverbal appearing essentially catatonic with no offerings to assist in the evaluation or treatment process. 1. Continue Invega 6 mg p.o. daily for psychosis. Filed 21 day hold today. 2. Continue every 15 minute checks for safety. 3. Encourage individual, group and milieu therapies. 4. Encourage sober living treatment after discharge at the highest level of care to which he is willing to commit. Involuntary Hold Information 96 Hour Hold: 96 Hour Involuntary Admission: Yes 96 Hour Hold Ending Date: 01/12/23 96 Hour Hold Ending Time: 12:00 Attestations NPU Medical Necessity Statement*: Inpatient hospitalization is medically necessary and the clinically appropriate intervention at this time. We will monitor/initiate medications and make changes as indicated. Likely length of stay 7 to 10 days. Coding Level of Care Code Acute Code for [facility] Fwd Diagnoses Acute psychosis F23 Suicidal ideation R45.851 Overdose T50.901A History of substance abuse F19.11 Hepatitis C infection B19.20
[2023-01-11 14:00] VITALS: BP 98/61; PULSE 76; RESP 16; TEMP 36.6; O2SAT 98
[2023-01-11 19:55] VITALS: BP 117/76; PULSE 80; RESP 18; TEMP 36.5; O2SAT 99
[2023-01-12 06:00] VITALS: BP 118/78; PULSE 77; RESP 16; TEMP 36.6; O2SAT 98
[2023-01-12] MEDS: paliperidone ER 6 mg Tablet PO (09:02)
[2023-01-12 14:00] VITALS: BP 99/57; PULSE 82; RESP 18; TEMP 36.9; O2SAT 98
--- NOTE | 2023-01-12 17:50 | W.PM.NPUPNS ---
Subjective NPU Subjective: Patient is a 32-year-old male admitted with psychotic symptoms after reporting an overdose on Benadryl with suicidal ideation. The patient was more verbal today and stated that he had been treated with an antipsychotic. He had reported having been hospitalized before in [place]. He had continued to isolate himself and required significant prompting for completion of activities of daily living. He had reported having less thoughts of hurting himself. He stated that he would like to return to be with family when he was discharged. He had reported improved sleep with his medication. Mental Status Exam MSE Comments: This is a thin white male in hospital scrubs with limited grooming, malodorous and absent eye contact. Notable tattoos on exposed skin. No abnormal movements except for profound psychomotor retardation. He appeared somewhat guarded and uncooperative with exam appearing somewhat annoyed.. Speech continues to lack spontaneity with decreased rate and volume with some mumbling on a couple occasions. Mood described as still feeling sick , his affect was odd and subdued. Thought process was nonlinear and did appear to derail during the interview. Thought content: There was an overall poverty of content. There was some evidence of paranoia. Attention, concentration and memory appeared impaired, but none were formally tested. He appeared alert to his name. He was able to describe where he was and the year and month but not the date or day of the week. Insight, judgment and impulse control were all impaired. Vitals/I&O/Wt Last Vital Signs Temp 98.4 F 01/12/23 14:00 Pulse 82 01/12/23 14:00 Resp 18 01/12/23 14:00 BP 99/57 01/12/23 14:00 Pulse Ox 98 01/12/23 14:00 O2 Del Method Room Air 01/12/23 06:00 Data NPU 01/05/23 10:49 01/05/23 10:49 A&P Assessment and plan (1) Acute psychosis: (2) Suicidal ideation: (3) Overdose: (4) History of substance abuse: (5) Hepatitis C infection: Plan This is a 32-year-old white male with a history of addiction presented to the emergency department with reports of concerns for suicidality who was admitted to the neuropsychiatric unit with altered mental status possible psychosis and depression currently nonverbal appearing essentially catatonic with no offerings to assist in the evaluation or treatment process. 1. Increase Invega 9 mg p.o. daily for psychosis. Filed 21 day hold today. 2. Continue every 15 minute checks for safety. 3. Encourage individual, group and milieu therapies. 4. Encourage sober living treatment after discharge at the highest level of care to which he is willing to commit. Involuntary Hold Information 96 Hour Hold: 96 Hour Involuntary Admission: Yes 96 Hour Hold Ending Date: 01/12/23 96 Hour Hold Ending Time: 12:00 Attestations NPU Medical Necessity Statement*: Inpatient hospitalization is medically necessary and the clinically appropriate intervention at this time. We will monitor/initiate medications and make changes as indicated. Likely length of stay 7 to 10 days. Coding Level of Care Code Acute Code for [facility] Diagnoses Acute psychosis F23 Suicidal ideation R45.851 Overdose T50.901A History of substance abuse F19.11 Hepatitis C infection B19.20
[2023-01-12 22:00] VITALS: BP 111/72; PULSE 73; RESP 15; TEMP 36.8; O2SAT 98
[2023-01-13] MEDS: trazodone 50 mg Tablet PO (00:36)
--- NOTE | 2023-01-13 00:38 | PC.NURSE ---
during safety rounds, RN observed pt to be staring at ceiling, RN asked pt if everything ok? pt replied yes , RN asked are you having problems sleeping, pt didn't answer, RN replied doctor has ordered Trazodone 50 mg for sleep and notified pt he has taken it. pt stated he would take the Trazodone.
[2023-01-13 06:00] VITALS: RESP 16
--- NOTE | 2023-01-13 06:14 | PC.NURSE ---
pt during evening assessment denies SI/HI/AVH, stated sometimes at night my mind just spins reported anxiety 05/12, depression stated only for like 30 seconds , wouldn't give much more information, offered Zydis or Vistaril, pt declined, states he's been doing better, eating with everyone, RN provided support, encouraged pt seek staff with concerns or needs, pt was in dayroom watching tv with peers until about 2200, declined to take any PRN meds, advised pt if needed to notify nurse. During safety rounds RN observed pt to be staring at ceiling, notified pt he has taken trazodone in the past for sleep and if he chooses he can have it. pt responded that he would like to take the trazodone. pt has been resting, no distress noted.
--- NOTE | 2023-01-13 08:53 | PC.NURSE ---
Patient staring at the ceiling. When asked how the patient was feeling this morning patient gave no response and kept staring at the ceiling. This RN asked if he would like to talk this morning, to which the patient gave no reply. This RN attempted to get patient to make eye contact with me or talk to me several times, but was unsuccessful.
--- NOTE | 2023-01-13 10:12 | PC.NURSE ---
Med Refusal- Patient continues to stare at the ceiling, not blinking. When asked to take his medications he replied, no thanks. This RN explained the importance of the medication and told him it would only take a moment to take it and then he could go back to bed to which he stated, I don't want it. I decided I don't want it.
[2023-01-13] MEDS: paliperidone ER 6 mg Tablet PO (11:53)
[2023-01-13] MEDS: paliperidone ER 3 mg Tablet PO (11:54)
[2023-01-13 14:00] VITALS: BP 104/50; PULSE 66; RESP 16; TEMP 36.7; O2SAT 98
--- NOTE | 2023-01-13 16:10 | P.NPUPN_ITS ---
Subjective NPU Subjective: Patient is a 32-year-old male admitted with psychotic symptoms after reporting an overdose on Benadryl with suicidal ideation. The patient continued to appear paranoid on the unit. He had been eating better and did not discuss feeling as if his food was contaminated today. He had refused to speak with his forest economist regarding his involuntary placement today. He had continued to isolate himself and required prompting for completion of activities of daily living. He continued to be somewhat vague in describing his past history and stated that he had used drugs before and that he had been homeless for a time in [place]. He had been compliant with taking his Invega oral at this time. Mental Status Exam MSE Comments: This is a thin white male in hospital scrubs with limited grooming, malodorous and absent eye contact. Notable tattoos on exposed skin. No abnormal movements except for profound psychomotor retardation. He appeared guarded today and mimimally cooperative. Speech was more spontaneous today. Mood described as hungry, , his affect was odd and subdued. Thought process was nonlinear and did appear to derail during the interview. Thought content: There was an overa ll poverty of content. There was some evidence of paranoia. Attention, concentration and memory appeared impaired, but none were formally tested. He appeared alert to his name, day of the week, month and year today. Insight, judgment and impulse control were all impaired. Vitals/I&O/Wt Last Vital Signs Temp 98.3 F 01/12/23 22:00 Pulse 73 01/12/23 22:00 Resp 16 01/13/23 06:00 BP 111/72 01/12/23 22:00 Pulse Ox 98 01/12/23 22:00 O2 Del Method Room Air 01/12/23 22:00 Data NPU 01/05/23 10:49 01/05/23 10:49 A&P Assessment and plan (1) Acute psychosis: (2) Suicidal ideation: (3) Overdose: (4) History of substance abuse: (5) Hepatitis C infection: Plan This is a 32-year-old white male with a history of addiction presented to the emergency department with reports of concerns for suicidality who was admitted to the neuropsychiatric unit with altered mental status possible psychosis and depression currently nonverbal appearing essentially catatonic with no offerings to assist in the evaluation or treatment process. 1. Continue Invega 9 mg p.o. daily for psychosis. Patient placed on 21 day hold today. 2. Continue every 15 minute checks for safety. 3. Encourage individual, group and milieu therapies. 4. Encourage sober living treatment after discharge at the highest level of care to which he is willing to commit. Involuntary Hold Information 2 96 Hour Hold: 96 Hour Involuntary Admission: Yes 96 Hour Hold Ending Date: 01/12/23 96 Hour Hold Ending Time: 12:00 Attestations NPU Medical Necessity Statement*: Inpatient hospitalization is medically necessary and the clinically appropriate intervention at this time. We will monitor/initiate medications and make changes as indicated. Likely length of stay 7 to 10 days. Coding Level of Care Code Acute Code for [facility] Fwd Diagnoses Acute psychosis F23 Suicidal ideation R45.851 Overdose T50.901A History of substance abuse F19.11 Hepatitis C infection B19.20
[2023-01-13] MEDS: OLANZapine 5 mg ODT PO (16:32)
[2023-01-14 06:00] VITALS: RESP 16; TEMP 36.8
[2023-01-14] MEDS: paliperidone ER 3 mg Tablet PO (09:36)
[2023-01-14] MEDS: hyDROXYzine 25 mg Capsule 50 MG PO (09:37)
[2023-01-14] MEDS: paliperidone ER 6 mg Tablet PO (09:37)
--- NOTE | 2023-01-14 09:37 | PC.NURSE ---
administered prn medication vistaril for anxiety. pt states he feels to nervous and anxious to get out of bed or his room.
[2023-01-14 14:00] VITALS: BP 122/71; PULSE 100; RESP 20; TEMP 36.7; O2SAT 98
[2023-01-14] MEDS: paliperidone palmitate 234 mg Syringe IM (14:26)
--- NOTE | 2023-01-14 15:14 | P.NPUPN_ITS ---
Subjective NPU Subjective: Patient is a 32-year-old male admitted with psychotic symptoms after reporting an overdose on Benadryl with suicidal ideation. The patient appeared more paranoid. He had struggled with wanting to take his oral Invega as he had expressed some concern about contamination. He had been sitting in his room isolating himself and not attending groups. He had reported that he was waiting for food although he had struggled with eating his meal today without some prompting. He continued to be somewhat guarded and not forthcoming regarding his past history although he had acknowledged a history of living homeless and reported that he wished to be homeless. Mental Status Exam MSE Comments: This is a thin white male in hospital scrubs with limited grooming, malodorous and poor eye contact. Notable tattoos on exposed skin. No abnormal movements except for moderate psychomotor retardation. There is no evidence of tics or tremors appreciated. He appeared guarded today and mimimally cooperative. Speech was monotone and quality with reduced rate and normal volume. Mood described as not so good. , his affect was odd and subdued. Thought process was concrete and illogical. Thought content: There was an overall poverty of content. There was some evidence of paranoia. Attention, concentration and memory appeared impaired, but none were formally tested. He appeared alert to his name, month and year today. Insight, judgment and impulse control were all impaired. Vitals/I&O/Wt Last Vital Signs Temp 98.1 F 01/14/23 14:00 Pulse 100 01/14/23 14:00 Resp 20 H 01/14/23 14:00 BP 122/71 01/14/23 14:00 Pulse Ox 98 01/14/23 14:00 O2 Del Method Room Air 01/12/23 22:00 Data NPU 01/05/23 10:49 01/05/23 10:49 A&P Assessment and plan (1) Acute psychosis: (2) Suicidal ideation: (3) Overdose: (4) History of substance abuse: (5) Hepatitis C infection: Plan This is a 32-year-old white male with a history of addiction presented to the emergency department with reports of concerns for suicidality who was admitted to the neuropsychiatric unit with altered mental status possible psychosis and depression currently nonverbal appearing essentially catatonic with no offerings to assist in the evaluation or treatment process. 1. Patient given Invega sustain at 234 mg IM today. Continue Invega oral as prescribed. 2. Continue every 15 minute checks for safety. 3. Encourage individual, group and milieu therapies. 4. Encourage sober living treatment after discharge at the highest level of car e to which he is willing to commit. Involuntary Hold Information 96 Hour Hold: 96 Hour Involuntary Admission: Yes 96 Hour Hold Ending Date: 01/12/23 96 Hour Hold Ending Time: 12:00 Attestations NPU 2 Medical Necessity Statement*: Inpatient hospitalization is medically necessary and the clinically appropriate intervention at this time. We will monitor/initiate medications and make changes as indicated. Likely length of stay 7 to 10 days. Coding Level of Care Code Acute Code for [facility] Fwd Diagnoses Acute psychosis F23 Suicidal ideation R45.851 Overdose T50.901A History of substance abuse F19.11 Hepatitis C infection B19.20
[2023-01-14] MEDS: docusate sodium 100 mg Capsule PO (20:06)
[2023-01-14 22:00] VITALS: BP 112/74; PULSE 87; RESP 15; TEMP 36.6; O2SAT 96
[2023-01-15 06:00] VITALS: BP 153/73; PULSE 97; RESP 15; TEMP 36.3; O2SAT 98
[2023-01-15] MEDS: paliperidone ER 3 mg Tablet PO (08:14)
[2023-01-15] MEDS: paliperidone ER 6 mg Tablet PO (08:14)
[2023-01-15 14:00] VITALS: BP 99/61; PULSE 87; RESP 16; TEMP 36.6; O2SAT 98
--- NOTE | 2023-01-15 15:53 | W.PM.NPUPNS ---
Subjective NPU Subjective: Patient is a 32-year-old male admitted with psychotic symptoms after reporting an overdose on Benadryl with suicidal ideation. The patient had received his intramuscular Invega yesterday without any side effects noted. He continued to appear isolated often staying in his room for most of the day other than to eat food. He had appeared less suspicious about food but continued to appear suspicious about receiving any medications. He had repeatedly asked staff what the medications would do and whether they would want him to take it. He had reported not being influenced by anyone or anything but did state that he was distracted often by his thoughts. He continued to struggle with completion of activities of daily living. Mental Status Exam MSE Comments: This is a thin white male in hospital scrubs with poor grooming and fleeting eye contact. Notable tattoos on exposed skin. No abnormal movements except for moderate psychomotor retardation. There is no evidence of tics or tremors appreciated. He appeared guarded today and superficially cooperative. Speech was monotone and quality with reduced rate and normal volume. Mood described as all right. , his affect was odd, subdued and mood incongruent. His thought process was concrete and illogical. Thought content: There was an overall poverty of content. There was some evidence of paranoia. Attention, concentration and memory appeared impaired, but none were formally tested. He appeared alert to his name, month and year today. Insight, judgment and impulse control were all impaired. Vitals/I&O/Wt Last Vital Signs Temp 98 F 01/15/23 14:00 Pulse 87 01/15/23 14:00 Resp 16 01/15/23 14:00 BP 99/61 01/15/23 14:00 Pulse Ox 98 01/15/23 14:00 O2 Del Method Room Air 01/15/23 14:00 Data NPU 01/05/23 10:49 01/05/23 10:49 A&P Assessment and plan (1) Acute psychosis: (2) Suicidal ideation: (3) Overdose: (4) History of substance abuse: (5) Hepatitis C infection: Plan This is a 32-year-old white male with a history of addiction presented to the emergency department with reports of concerns for suicidality who was admitted to the neuropsychiatric unit with altered mental status possible psychosis and depression currently nonverbal appearing essentially catatonic with no offerings to assist in the evaluation or treatment process. 1. Patient given Invega sustain at 234 mg IM on 01/14/23 Continue Invega oral with reduction to 6mg daily. 2. Continue every 15 minute checks for safety. 3. Encourage individual, group and milieu therapies. 4. Encourage sober living treatment after discharge at the highest level of care to which he is willing to commit. Involuntary Hold Information 96 Hour Hold: 96 Hour Involuntary Admission: Yes 96 Hour Hold Ending Date: 01/12/23 96 Hour Hold Ending Time: 12:00 Attestations NPU Medical Necessity Statement*: Inpatient hospitalization is medically necessary and the clinically appropriate intervention at this time. We will monitor/initiate medications and make changes as indicated. Likely length of stay 7 to 10 days. Coding Level of Care Code Acute Code for [facility] Fwd Diagnoses Acute psychosis F23 Suicidal ideation R45.851 Overdose T50.901A History of substance abuse F19.11 Hepatitis C infection B19.20
[2023-01-15 22:00] VITALS: BP 116/73; PULSE 91; RESP 15; TEMP 36.5; O2SAT 97
[2023-01-16 06:00] VITALS: RESP 17
[2023-01-16] MEDS: paliperidone ER 6 mg Tablet PO (10:00)
[2023-01-16 14:00] VITALS: BP 127/67; PULSE 95; RESP 18; TEMP 37; O2SAT 98
--- NOTE | 2023-01-16 16:14 | P.NPUPN_ITS ---
Subjective NPU Subjective: Patient is a 32-year-old male admitted with psychotic symptoms after reporting an overdose on Benadryl with suicidal ideation. Patient continued to isolate himself on the milieu. He reported no side effects from his medication. He had reported having used excessive amounts of craton in the past as a means of avoiding using other illicit drugs that he had previously used. He had continue d to report feeling unusual stating that he did not like or trust being around others. He was unable to provide any additional information regarding this belief. He denied any thought broadcasting or thought insertion. He had reported that in the past he had been excepting of being homeless and stated that he had been in various shelters in the past. He reports that he had been living with his mother and grandmother for the past few years. He was unable to describe what previous events that occurred that led to his hospitalization in the past. He had continue to report feeling distracted at times and stated that he was often feeling that his thoughts were getting in the way of him being able to stay focused on what others were saying to him. Mental Status Exam MSE Comments: This is a thin white male in hospital scrubs with poor grooming and fleeting eye contact. Notable tattoos on exposed skin. There was continued evidence of mild to moderate psychomotor slowing. There is no evidence of tics or tremors appreciated. He appeared less guarded today but was more cooperative. Speech was monotone and quality with reduced rate and normal volume. Mood described as all right. , his affect was odd, subdued and mood incongruent. His thought process was concrete and illogical. Thought content: There was continued evidence of overall poverty of content but he was more interactive today. There was some evidence of paranoia. Attention, concentration and memory appeared impaired, but none were formally tested. He appeared alert to his name, month and year today. Insight, judgment and impulse control were all impaired. Vitals/I&O/Wt Last Vital Signs Temp 98.6 F 01/16/23 14:00 Pulse 95 01/16/23 14:00 Resp 18 01/16/23 14:00 BP 127/67 01/16/23 14:00 Pulse Ox 98 01/16/23 14:00 O2 Del Method Room Air 01/16/23 14:00 Weight last 48 hrs Weight 62.414 kg Data NPU 01/05/23 10:49 01/05/23 10:49 A&P Assessment and plan (1) Acute psychosis: (2) Suicidal ideation: (3) Overdose: (4) History of substance abuse: (5) Hepatitis C infection: Plan This is a 32-year-old white male with a history of addiction presented to the emergency department with reports of concerns for suicidality who was admitted to the neuropsychiatric unit with altered mental status possible psychosis and depression currently nonverbal appearing essentially catatonic with no offerings to assist in the evaluation or treatment process. 1. Patient given Invega sustain at 234 mg IM on 01/14/23 Continue Invega oral with reduction to 6mg daily. 2. Continue every 15 minute checks for safety. 3. Encourage individual, group and milieu therapies. 4. Encourage sober living treatment after discharge at the highest level of care to which he is willing to commit. Involuntary Hold Information 96 Hour Hold: 96 Hour Involuntary Admission: Yes 96 Hour Hold Ending Date: 01/12/23 96 Hour Hold Ending Time: 12:00 Attestations NPU Medical Necessity Statement*: Inpatient hospitalization is medically necessary and the clinically appropriate intervention at this time. We will monitor/initiate medications and make changes as indicated. Likely length of stay 7 to 10 days. Coding Level of Care Code Acute Code for [facility] Fwd Diagnoses Acute psychosis F23 Suicidal ideation R45.851 Overdose T50.901A History of substance abuse F19.11 Hepatitis C infection B19.20
[2023-01-16 20:13] VITALS: BP 124/76; PULSE 74; RESP 18; TEMP 36.6; O2SAT 99
[2023-01-17 06:00] VITALS: BP 113/99; PULSE 78; RESP 16; TEMP 36.9; O2SAT 99
[2023-01-17] MEDS: paliperidone ER 6 mg Tablet PO (08:16)
[2023-01-17 14:00] VITALS: BP 109/70; PULSE 75; RESP 18; TEMP 36.7; O2SAT 98
--- NOTE | 2023-01-17 17:46 | W.PM.NPUPNS ---
Subjective NPU Subjective: Patient is a 32-year-old male admitted with psychotic symptoms after reporting an overdose on Benadryl with suicidal ideation. Patient had reported continued desire to not take any medications when he left here. He reported that he did not think he needed medications. He had acknowledged having problems with using excessive craton. He continued to show evidence of apathy and amotivation on the unit with limited social involvement and continued prompting required for completion of activities of daily living. He had still reported feeling uncomfortable about eating and requested that he be able to go home soon. Despite this, he had acknowledged some improvement recently in his thinking. Staff notes the patient had been more conversant but continued to struggle with being in large groups. He reported no side effects from the medications at this time. Mental Status Exam MSE Comments: This is a thin white male in hospital scrubs with poor grooming and fleeting eye contact. Notable tattoos on exposed skin. There was continued evidence of mild psychomotor slowing. His speech appeared more normal in regards to rate and volume with more spontaneity noted. There is no evidence of tics or tremors appreciated. He appeared less guarded today but was more cooperative. Mood described as okay. , his affect was odd, subdued and mood incongruent. His thought process was linear today. Thought content: There was no clear evidence of delusional thinking or paranoia noted. Attention, concentration and memory appeared impaired, but none were formally tested. He appeared alert to his name, month and year today. Insight appeared poor. His impulse control was impaired. Vitals/I&O/Wt Last Vital Signs Temp 98.1 F 01/17/23 14:00 Pulse 75 01/17/23 14:00 Resp 18 01/17/23 14:00 BP 109/70 01/17/23 14:00 Pulse Ox 98 01/17/23 14:00 O2 Del Method Room Air 01/17/23 06:00 Weight last 48 hrs Weight 62.414 kg Data NPU 01/05/23 10:49 01/05/23 10:49 A&P Assessment and plan (1) Acute psychosis: (2) Suicidal ideation: (3) Overdose: (4) History of substance abuse: (5) Hepatitis C infection: Plan This is a 32-year-old white male with a history of addiction presented to the emergency department with reports of concerns for suicidality who was admitted to the neuropsychiatric unit with altered mental status possible psychosis and depression currently nonverbal appearing essentially catatonic with no offerings to assist in the evaluation or treatment process. 1. Patient given Invega sustain at 234 mg IM on 01/14/23 Continue Invega oral with reduction to 6mg daily. 2. Continue every 15 minute checks for safety. 3. Encourage individual, group and milieu therapies. 4. Encourage sober living treatment after discharge at the highest level of care to which he is willing to commit. Involuntary Hold Information 96 Hour Hold: 96 Hour Involuntary Admission: Yes 96 Hour Hold Ending Date: 01/12/23 96 Hour Hold Ending Time: 12:00 Attestations NPU Medical Necessity Statement*: Inpatient hospitalization is medically necessary and the clinically appropriate intervention at this time. We will monitor/initiate medications and make changes as indicated. Likely length of stay 3-4 days. Coding Level of Care Code Acute Code for g Fwd Diagnoses Acute psychosis F23 Suicidal ideation R45.851 Overdose T50.901A History of substance abuse F19.11 Hepatitis C infection B19.20
[2023-01-17 20:08] VITALS: BP 109/70; PULSE 98; RESP 18; TEMP 36.4; O2SAT 98
[2023-01-18 06:00] VITALS: BP 102/66; PULSE 72; RESP 18; TEMP 36.6; O2SAT 98
[2023-01-18] MEDS: paliperidone ER 6 mg Tablet PO (08:22)
--- NOTE | 2023-01-18 12:32 | W.PM.NPUPNS ---
Subjective NPU Subjective: Patient is a 32-year-old male admitted with psychotic symptoms after reporting an overdose on Benadryl with suicidal ideation. Patient showed poor insight stating that he was not sure that he needed to continue to take medications. He reported no side effects from his medication at this time. He had continued to isolate himself but was appearing to take better care of himself in regards to completion of activities of daily living. He had reported adequate sleep. He had reported having a good visit with his mother and grandmother. He reported that he had no cravings at all for Kratom at this time. Patient had shown evidence of continued lack of wanting to do anything as he stated that he was bored and simply not interested in anything anymore. Mental Status Exam MSE Comments: This is a thin white male in hospital scrubs with improved grooming and fleeting eye contact. Notable tattoos on exposed skin. There was continued evidence of mild psychomotor slowing. His speech appeared more normal in regards to rate and volume with more spontaneity noted. There is no evidence of tics or tremors appreciated. He appeared less guarded today but was more cooperative. Mood described as good. , his affect was blunted still. His thought process was linear today. Thought content: There was no clear evidence of delusional thinking or paranoia noted. Attention, concentration and memory appeared impaired, but none were formally tested. He was alert and oriented to person place and time today. Insight appeared poor. Judgment is limited. His impulse control was guarded.. Vitals/I&O/Wt Last Vital Signs Temp 97.8 F 01/18/23 06:00 Pulse 72 01/18/23 06:00 Resp 18 01/18/23 06:00 BP 102/66 01/18/23 06:00 Pulse Ox 98 01/18/23 06:00 O2 Del Method Room Air 01/17/23 06:00 Data NPU 01/05/23 10:49 01/05/23 10:49 A&P Assessment and plan (1) Acute psychosis: (2) Suicidal ideation: (3) Overdose: (4) History of substance abuse: (5) Hepatitis C infection: Plan This is a 32-year-old white male with a history of addiction presented to the emergency department with reports of concerns for suicidality who was admitted to the neuropsychiatric unit with altered mental status possible psychosis and depression currently nonverbal appearing essentially catatonic with no offerings to assist in the evaluation or treatment process. 1. Patient given Invega sustain at 234 mg IM on 01/14/23 Continue Invega oral with reduction to 3mg tommorow. Patient to be given Invega Sustenna 156mg on 01/20/23 2. Continue every 15 minute checks for safety. 3. Encourage individual, group and milieu therapies. 4. Encourage sober living treatment after discharge at the highest level of care to which he is willing to commit. Involuntary Hold Information 96 Hour Hold: 96 Hour Involuntary Admission: Yes 96 Hour Hold Ending Date: 01/12/23 96 Hour Hold Ending Time: 12:00 Attestations NPU Medical Necessity Statement*: Inpatient hospitalization is medically necessary and the clinically appropriate intervention at this time. We will monitor/initiate medications and make changes as indicated. Likely length of stay 2-3 days. Coding Level of Care Code Acute Code for Chg Fwd Diagnoses Acute psychosis F23 Suicidal ideation R45.851 Overdose T50.901A History of substance abuse F19.11 Hepatitis C infection B19.20
[2023-01-18 14:00] VITALS: BP 101/68; PULSE 85; RESP 16; TEMP 36.6; O2SAT 98
[2023-01-18 21:55] VITALS: BP 110/70; PULSE 76; RESP 16; TEMP 36.8; O2SAT 97
[2023-01-19] MEDS: paliperidone ER 3 mg Tablet PO (08:38)
[2023-01-19 14:00] VITALS: BP 127/80; PULSE 82; RESP 20; TEMP 36.8; O2SAT 97
--- NOTE | 2023-01-19 15:24 | W.PM.NPUPNS ---
Subjective NPU Subjective: Patient is a 32-year-old male admitted with psychotic symptoms after reporting an overdose on Benadryl with suicidal ideation. The patient continued to report feeling confused as to why he was here in the first place. He continued to show evidence of apathy on the unit as he did not appear to come out for groups. He stated he had anxiety with being in large crowds. The patient had reported no depression. He had reported no side effects from his medication. He had reported adequate sleep. Staff notes the patient had been less sedated in the morning but continued to require significant prompting for activities of daily living although he had stated to having taken a shower in the last 24 hours. Mental Status Exam MSE Comments: This is a thin white male in hospital scrubs with improved grooming and fleeting eye contact. He was again lying in bed with a sheet over him. Notable tattoos on exposed skin. There was continued evidence of mild psychomotor slowing. His speech appeared more normal in regards to rate and volume with more spontaneity noted. There is no evidence of tics or tremors appreciated. He was cooperative on interview. Mood described as pretty good.. , his affect was blunted and subdued. His thought process was linear today. Thought content: There was no clear evidence of delusional thinking or paranoia noted. Attention, concentration was improving. He was alert and oriented to person place and time today. Insight appeared poor. Judgment is limited. His impulse control was guarded.. There was continued evidence of apathy avolition and amotivation. Vitals/I&O/Wt Last Vital Signs Temp 98.3 F 01/18/23 21:55 Pulse 76 01/18/23 21:55 Resp 16 01/18/23 21:55 BP 110/70 01/18/23 21:55 Pulse Ox 97 01/18/23 21:55 O2 Del Method Room Air 01/18/23 21:55 Data NPU 01/05/23 10:49 01/05/23 10:49 A&P Assessment and plan (1) Acute psychosis: (2) Suicidal ideation: (3) Overdose: (4) History of substance abuse: (5) Hepatitis C infection: Plan This is a 32-year-old white male with a history of addiction presented to the emergency department with reports of concerns for suicidality who was admitted to the neuropsychiatric unit with altered mental status possible psychosis and depression currently nonverbal appearing essentially catatonic with no offerings to assist in the evaluation or treatment process. 1. Patient given Invega sustain at 234 mg IM on 01/14/23 Continue Invega oral 3mg daily. Patient to be given Invega Sustenna 156mg on 01/21/23 2. Continue every 15 minute checks for safety. 3. Encourage individual, group and milieu therapies. 4. Encourage sober living treatment after discharge at the highest level of care to which he is willing to commit. Involuntary Hold Information 96 Hour Hold: 96 Hour Involuntary Admission: Yes 96 Hour Hold Ending Date: 01/12/23 96 Hour Hold Ending Time: 12:00 Attestations NPU Medical Necessity Statement*: Inpatient hospitalization is medically necessary and the clinically appropriate intervention at this time. The patient's likely length of stay 2-3 days. Coding Level of Care Code Acute Code for g Fwd Diagnoses Acute psychosis F23 Suicidal ideation R45.851 Overdose T50.901A History of substance abuse F19.11 Hepatitis C infection B19.20
[2023-01-19 22:00] VITALS: RESP 15
[2023-01-20 06:00] VITALS: BP 109/67; PULSE 77; RESP 14; TEMP 36.6; O2SAT 98
[2023-01-20] MEDS: paliperidone ER 3 mg Tablet PO (10:05)
[2023-01-20 14:00] VITALS: BP 113/72; PULSE 83; RESP 18; TEMP 36.7; O2SAT 98
--- NOTE | 2023-01-20 16:08 | P.NPUPN_ITS ---
Subjective NPU Subjective: Patient is a 32-year-old male admitted with psychotic symptoms after reporting an overdose on Benadryl with suicidal ideation. The patient had reported that he had been admitted initially in the hospital out of request by his mother after he had an office visit. He continued to appear flabbergasted as to why he was here in the hospital. Patient had been informed that he had been struggling with his thoughts initially when he came in and had not been communicating. The patient reports that he has been feeling better as of late. He had continued to minimize having any need for medications. Despite this, the patient had reported struggles with being in crowds and continued to not socialize on the unit. He was able to eat and did not appear concerned about any food being contaminated. He reported adequate sleep. Patient had been able to engage in some self-care today. He denied any cravings for kratom and denied any cravings for opiates. He continued to show evidence of a lack of interest in doing anything as he stated that he was bored. Mental Status Exam MSE Comments: This is a thin white male in hospital scrubs with improved grooming and fleeting eye contact. He was sitting on his bed and had notable tattoos on exposed skin. There was continued evidence of mild psychomotor slowing. His speech appeared more normal in regards to rate and volume and greater spontaneity was noted. There is no evidence of tics or tremors appreciated. He was cooperative on inte rview. Mood described as okay.. , his affect was blunted and subdued. His thought process was linear today. Thought content: There was no clear evidence of delusional thinking or paranoia noted. He denied any homicidal or suicidal ideation. Attention, concentration was improving. He was alert and oriented to person place and time today. Insight appeared poor. Judgment is limited. His impulse control was guarded. There was continued evidence of abuleia and amotivation. Vitals/I&O/Wt Last Vital Signs Temp 98.1 F 01/20/23 14:00 Pulse 83 01/20/23 14:00 Resp 18 01/20/23 14:00 BP 113/72 01/20/23 14:00 Pulse Ox 98 01/20/23 14:00 O2 Del Method Room Air 01/20/23 14:00 Data NPU 01/05/23 10:49 01/05/23 10:49 A&P Assessment and plan (1) Acute psychosis: (2) Suicidal ideation: (3) Overdose: (4) History of substance abuse: (5) Hepatitis C infection: Plan This is a 32-year-old white male with a history of addiction presented to the emergency department with reports of concerns for suicidality who was admitted to the neuropsychiatric unit with altered mental status possible psychosis and depression currently nonverbal appearing essentially catatonic with no offerings to assist in the evaluation or treatment process. 1. Patient given Invega sustain at 234 mg IM on 01/14/23 Continue Invega oral 3mg daily. Patient to be given Invega Sustenna 156mg on 01/21/23 2. Continue every 15 minute checks for safety. 3. Encourage individual, group and milieu therapies. 4. Encourage sober living treatment after discharge at the highest level of care to which he is willing to commit. Involuntary Hold Information 96 Hour Hold: 96 Hour Involuntary Admission: Yes 96 Hour Hold Ending Date: 01/12/23 96 Hour Hold Ending Time: 12:00 Attestations NPU Medical Necessity Statement*: Inpatient hospitalization is medically necessary and the clinically appropriate intervention at this time. The patient's likely length of stay 2-3 days. Coding Level of Care Code Acute Code for [facility] Fw Diagnoses Acute psychosis F23 Suicidal ideation R45.851 Overdose T50.901A History of substance abuse F19.11 Hepatitis C infection B19.20
[2023-01-20 22:00] VITALS: BP 114/73; PULSE 82; RESP 16; TEMP 36.4; O2SAT 97
[2023-01-21 06:00] VITALS: BP 99/61; PULSE 72; RESP 16; TEMP 36.4; O2SAT 95
[2023-01-21] MEDS: paliperidone palmitate 156 mg Syringe IM (12:30)
--- NOTE | 2023-01-21 12:59 | P.NPUPN_ITS ---
Subjective NPU Subjective: Patient presents today reporting that he is doing better. 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 He was receptive to the second loading dose of Invega Sustenna 156 mg IM to the deltoid vet was endorsing resistance to the medication earlier and telling social work that he would not continue taking the medication when home. We continue to discuss the significant improvement that we have seen him on the medication and encouraged him to consider the benefit of the medication given that he could ultimately get to a point where he was taking it twice a year if he went to the [facility]. We discussed working on discharge with his family over the next several days. Mental Status Exam MSE Comments: This is a thin white male in hospital scrubs with improved grooming and fleeting but improved eye contact. Notable tattoos on exposed skin. There was continued evidence of mild psychomotor slowing with improvement over this hospitalization. His speech appeared more normal in regards to rate and volume and greater spontaneity was noted. There is no evidence of tics or tremors appreciated. He was cooperative on interview in mild distress. Mood described as better , his affect was blunted and subdued. His thought process was linear today. Thought content: There was no clear evidence of delusional thinking or paranoia noted. No auditory or visual hallucinations reported. He denied any homicidal or suicidal ideation. Attention, concentration was improving. He was alert and oriented to person place and time today. Insight appeared poor. Judgment is limited. His impulse control was guarded. There was continued evidence of abulia and amotivation. Vitals/I&O/Wt Last Vital Signs Temp 97.6 F 01/21/23 06:00 Pulse 72 01/21/23 06:00 Resp 16 01/21/23 06:00 BP 99/61 01/21/23 06:00 Pulse Ox 95 01/21/23 06:00 O2 Del Method Room Air 01/21/23 06:00 Data NPU 01/05/23 10:49 01/05/23 10:49 A&P Assessment and plan (1) Acute psychosis: (2) Suicidal ideation: (3) Overdose: (4) History of substance abuse: (5) Hepatitis C infection: Plan This is a 32-year-old white male with a history of addiction presented to the emergency department with reports of concerns for suicidality who was admitted to the neuropsychiatric unit with altered mental status possible psychosis and depression currently nonverbal appearing essentially catatonic with no offerings to assist in the evaluation or treatment process. 1. Patient given Invega sustain at 234 mg IM on 01/14/23 Continue Invega oral 3mg daily. Patient to be given Invega Sustenna 156mg today. 2. Continue every 15 minute checks for safety. 3. Encourage individual, group and milieu therapies. 4. Encourage sober living treatment after discharge at the highest level of care to which he is willing to commit. Involuntary Hold Information 96 Hour Hold: 96 Hour Involuntary Admission: Yes 96 Hour Hold Ending Date: 01/12/23 96 Hour Hold Ending Time: 12:00 Attestations NPU Medical Necessity Statement*: Inpatient hospitalization is medically necessary and the clinically appropriate intervention at this time. The patient's likely length of stay 2-3 days. Coding Level of Care Code Acute Code for [facility] Fwd Diagnoses Acute psychosis F23 Suicidal ideation R45.851 Overdose T50.901A History of substance abuse F19.11 Hepatitis C infection B19.20
[2023-01-21] MEDS: paliperidone ER 3 mg Tablet PO (13:25)
[2023-01-21 14:00] VITALS: BP 128/75; PULSE 96; RESP 16; TEMP 36.7; O2SAT 99
[2023-01-21 22:00] VITALS: BP 128/79; PULSE 79; RESP 16; TEMP 36.6; O2SAT 99
[2023-01-22] MEDS: trazodone 50 mg Tablet PO ×2 (03:10→20:59)
[2023-01-22 06:00] VITALS: RESP 15
[2023-01-22] MEDS: paliperidone ER 3 mg Tablet PO (09:32)
[2023-01-22 14:00] VITALS: RESP 18
[2023-01-22 22:00] VITALS: BP 109/76; PULSE 84; RESP 15; TEMP 36.6; O2SAT 97
--- NOTE | 2023-01-22 22:40 | W.PM.NPUPNS ---
Subjective NPU Subjective: Patient presented today reporting that he was doing okay. He denied any issues with getting the second loading dose of Invega yesterday. We spent much of the discussion talking about the improvements that we can see with him on the medication and the benefits of using the long-acting injectable to avoid the daily decision making. And the possibility of him getting to every 6-month injections. He seemed open to this possibility. Mental Status Exam MSE Comments: This is a thin white male in hospital scrubs with improved grooming and fleeting but improved eye contact. Notable tattoos on exposed skin. There was continued evidence of mild psychomotor slowing with improvement over this hospitalization. His speech appeared more normal in regards to rate and volume and greater spontaneity was noted. There is no evidence of tics or tremors appreciated. He was cooperative on interview in mild distress. Mood described as better , his affect was blunted and subdued. His thought process was linear today. Thought content: There was no clear evidence of delusional thinking or paranoia noted. No auditory or visual hallucinations reported. He denied any homicidal or suicidal ideation. Attention, concentration was improving. He was alert and oriented to person place and time today. Insight appeared poor. Judgment is limited. His impulse control was guarded. There was continued evidence of abulia and amotivation. Vitals/I&O/Wt Last Vital Signs Temp 97.8 F 01/21/23 22:00 Pulse 79 01/21/23 22:00 Resp 18 01/22/23 14:00 BP 128/79 01/21/23 22:00 Pulse Ox 99 01/21/23 22:00 O2 Del Method Room Air 01/21/23 22:00 Data NPU 01/05/23 10:49 01/05/23 10:49 A&P Assessment and plan (1) Acute psychosis: (2) Suicidal ideation: (3) Overdose: (4) History of substance abuse: (5) Hepatitis C infection: Plan This is a 32-year-old white male with a history of addiction presented to the emergency department with reports of concerns for suicidality who was admitted to the neuropsychiatric unit with altered mental status possible psychosis and depression currently nonverbal appearing essentially catatonic with no offerings to assist in the evaluation or treatment process. 1. Patient given Invega sustain at 234 mg IM on 01/14/23 Continue Invega oral 3mg daily. Patient to be given Invega Sustenna 156mg 01/21/2023. We will discontinue oral medication. 2. Continue every 15 minute checks for safety. 3. Encourage individual, group and milieu therapies. 4. Encourage sober living treatment after discharge at the highest level of care to which he is willing to commit. Involuntary Hold Information 96 Hour Hold: 96 Hour Involuntary Admission: Yes 96 Hour Hold Ending Date: 01/12/23 96 Hour Hold Ending Time: 12:00 Attestations NPU Medical Necessity Statement*: Inpatient hospitalization is medically necessary and the clinically appropriate intervention at this time. The patient's likely length of stay 2-3 days. Coding Level of Care Code Acute Code for g Fwd Diagnoses Acute psychosis F23 Suicidal ideation R45.851 Overdose T50.901A History of substance abuse F19.11 Hepatitis C infection B19.20
[2023-01-23 06:00] VITALS: BP 99/48; PULSE 72; RESP 16; TEMP 36.6; O2SAT 97
[2023-01-23] MEDS: paliperidone ER 3 mg Tablet PO (08:22)
--- NOTE | 2023-01-23 11:04 | P.NPUPN_ITS ---
Subjective NPU Subjective: Patient presented today reporting that he is feeling a bit better. 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 We continued to talk about him continuing the long-acting injectable and the power that that could restore to his desire to be independent and a functional worker. We once again discu ssed the ability of Invega to ultimately become a twice a year injection. He seemed very receptive to that we talked about the likelihood of discharge in the next 48 hours. Mental Status Exam MSE Comments: This is a thin white male in hospital scrubs with improved grooming and improved eye contact. Notable tattoos on exposed skin. There was continued evidence of mild psychomotor slowing with improvement over this hospitalization. His speech appeared more normal in regards to rate and volume and greater spontaneity was noted. There is no evidence of tics or tremors appreciated. He was cooperative on interview in no acute distress. Mood described as better , his affect was congruent and slightly subdued. His thought process was linear today with more organization. Thought content: There was no clear evidence of delusional thinking or paranoia noted. No auditory or visual hallucinations reported. He denied any homicidal or suicidal ideation. Attention, concentration was impr oving. He was alert and oriented to person place and time today. Insight appeared improving. Judgment is limited. His impulse control was limited but improving. There was continued evidence of abulia and amotivation. Vitals/I&O/Wt Last Vital Signs Temp 97.8 F 01/23/23 06:00 Pulse 72 01/23/23 06:00 Resp 16 01/23/23 06:00 BP 99/48 01/23/23 06:00 Pulse Ox 97 01/23/23 06:00 O2 Del Method Room Air 01/21/23 22:00 Weight last 48 hrs Weight 71.758 kg Data NPU 01/05/23 10:49 01/05/23 10:49 A&P Assessment and plan (1) Acute psychosis: (2) Suicidal ideation: (3) Overdose: (4) History of substance abuse: (5) Hepatitis C infection: Plan This is a 32-year-old white male with a history of addiction presented to the emergency department with reports of concerns for suicidality who was admitted to the neuropsychiatric unit with altered mental status possible psychosis and depression currently nonverbal appearing essentially catatonic with no offerings to assist in the evaluation or treatment process. 1. Patient given Invega sustain at 234 mg IM on 01/14/23 Continue Invega oral 3mg daily. Patient to be given Invega Sustenna 156mg 01/21/2023. We will discontinue oral medication. 2. Continue every 15 minute checks for safety. 3. Encourage individual, group and milieu therapies. 4. Encourage sober living treatment after discharge at the highest level of care to which he is willing to commit. Involuntary Hold Information 96 Hour Hold: 96 Hour Involuntary Admission: Yes 96 Hour Hold Ending Date: 01/12/23 96 Hour Hold Ending Time: 12:00 Attestations NPU Medical Necessity Statement*: Inpatient hospitalization is medically necessary and the clinically appropriate intervention at this time. The patient's likely length of stay 1-2 days. Coding Level of Care Code Acute Code for Chg Fwd Diagnoses Acute psychosis F23 Suicidal ideation R45.851 Overdose T50.901A History of substance abuse F19.11 Hepatitis C infection B19.20
[2023-01-23 14:00] VITALS: BP 104/63; PULSE 74; RESP 18; TEMP 36.7; O2SAT 97
[2023-01-23 21:13] VITALS: BP 123/83; PULSE 88; RESP 18; TEMP 36.7; O2SAT 98
[2023-01-24 06:00] VITALS: BP 114/67; PULSE 73; RESP 16; TEMP 36.7; O2SAT 96
[2023-01-24] MEDS: paliperidone ER 3 mg Tablet PO (09:26)
--- NOTE | 2023-01-24 12:28 | W.PM.NPUDCS ---
Diagnoses at Discharge Discharge Diagnosis (1) Acute psychosis: Status: Resolved (2) Suicidal ideation: Status: Resolved (3) Overdose: Status: Resolved (4) History of substance abuse: Status: Chronic (5) Hepatitis C infection: Status: Resolved Permanent problem details: s/p treatment, neg viral load Reason for Visit Reason for Visit: SUICIDAL IDEATIONS Brief History: History of Present Illness Lew Barreto is a 32 year old male to the emergency department with the following report: Chief Complaint: Psychiatric Symptoms Stated Complaint: SUICIDAL IDEATIONS Time Seen by Provider: 01/05/23 10:24 Limitations: other History of Present Illness:?? Mr Barreto is a 32-year-old gentleman with apparent history of substance abuse and hepatitis C per chart review presenting to the emergency department for psychiatric evaluation.? The patient himself declines to answer any questions.? Apparently last night or sometime this morning he told his mother that he wanted to kill himself.? He possibly ingested 3 bottles of liquid Benadryl.? He was brought to [facility] and at that time similarly did not participate in evaluation and was referred to the emergency department. He was admitted to the neuropsychiatric unit for definitive treatment of those issues.? He presents today as a fairly limited historian.? No spontaneous conversation and very limited responses to questions.? When asked what brought him to the hospital.? He perseverated multiple times seeming to mumble under his breath brought to the hospital. ? I had to once again cue him to try to get an answer which never came.? Eventually I suggested that there was a report from his family that he was feeling suicidal.? He made some gesture with his head but it was unclear whether that was a yes or no and he would not repeat that movement.? He seemed to answer no to previously being in a psychiatric hospital by nodding.? But then could later not give any response to other questions about previous psychiatric care.? He did not answer questions in any appreciable way to questions about tobacco, alcohol marijuana or any other illicit drug use.? He did not answer any questions related to current or past medications.? He reportedly came with some kratom.? There were concerns as stated above for an intentional overdose of Benadryl either as a suicide attempt or possibly as a mood altering substance.? I was unable to elicit any other responses to questions during the interview.? An excerpt of his in person crisis appointment from yesterday is included below for context and given his limited functioning as a historian. Per his 01/05/2023 [facility] outpatient crisis appointment: Primary problem of call:: Currently Suicidal Treatment Team:: Client is not in services with [facility] Is person in crisis currently taking any medications?: Unknown Does person in crisis currently use alcohol or drugs?: Unknown Does person in crisis have any known medical conditions?: Unknown Intervention: Contacted 1/Law Enforcement for Involuntary Longterm/Active Rescue Final Disposition Supports Utilized:: Phone call to/dicussion of case with: (ER, [facility], 911, ambulance. ) Phone Call to/discussion of case with:: [facility] Personnel Actions taken narrative:: Lew Barreto presented to [facility] today with his mother Janice House and his grandmother Monique Mauro. Janice stated to the lead front desk agent that the client was suicidal. [facility] was contacted. [facility] called the client to come to the crisis office, he started to walk out the front doors. [facility] called the client's name several times before he seen where the staff was standing.? ? Lew walked with [facility] to the crisis office. Janice stayed in the waiting room with the grandmother. [facility] asked Lew a question and he was unresponsive. He had his head hung low and seemed to be zoning out. He put his paperwork down and then laid his head in a sweatshirt.? ? [facility] got his mother to see if he would respond to her and he would not. He ended up laying in an oversized chair in [facility] office. Janice reports that at 3am he told her that he wanted to kill himself. He did not say how he would kill himself. [facility] talked with Janice about him going to the ER; she agreed he must.? Client Response to Intervention:: [facility] then called an ambulance to come to take him to the ER. He was not responsive to them and had to be carried out to the ambulance. Client's mother Janice reports that she found three bottles of Benadryl in the trash this morning. She also reports that he had odd behavior in the home. She said he stood in front of the washing machine for two hours saying that it is filling up with hot air. She reports that he talks about things that are not there. She reports he lost his job three days ago and has gone downhill since. Final Disposition:: [facility] and the client's mother Janice filled out [id number] paperwork. It was faxed to the ER and to the [facility] [place]. [facility] called the ER and the courthouse. The ambulance and the police were at [facility], and the client was transported to the ER.? Hospital Course Hospital Course He slowly acclimated to the individual, group and milieu therapies.? He was initially near catatonic if not catatonic and not accepting of medication. Eventually he was placed on a 21-day hold and started taking the Invega which was switched over to to Invega Sustenna with the goal of getting to Invega Trinza and/or Invega Hafyera as he has significant resistance to being on medication but did identify that the medication led to improvement. He had significant improvement during the hospitalization.? He worked with the social work team to establish appropriate follow-up services.? He was able to contract for safety outside of the hospital prior to discharge. During the hospitalization, patient had routine laboratory studies which were within normal limits except for few outliers.? Additionally there was a general medical evaluation which was also within normal limits and revealed no new acute processes. At the time of discharge, lethality was denied and psychosis was resolving.? Mood and anxiety were well managed.? Patient endorsed a plan to avoid all drugs of abuse and follow-up with the aftercare recommendations of the treatment team.? Patient was evaluated and deemed to be absent credible lethality, and had achieved the maximum benefit from an inpatient hospitalization, so was discharged. Involuntary Hold Information 96 Hour Hold: 96 Hour Involuntary Admission: Yes 96 Hour Hold Ending Date: 01/12/23 96 Hour Hold Ending Time: 12:00 Mental Status Exam MSE Comments: This is a thin white male in hospital scrubs with improved grooming and improved eye contact. Notable tattoos on exposed skin. There was continued evidence of mild psychomotor slowing with improvement over this hospitalization. His speech appeared more normal in regards to rate and volume and greater spontaneity was noted. There is no evidence of tics or tremors appreciated. He was cooperative on interview in no acute distress. Mood described as better , his affect was congruent and slightly subdued. His thought process was linear today with more organization. Thought content: There was no clear evidence of delusional thinking or paranoia noted. No auditory or visual hallucinations reported. He denied any homicidal or suicidal ideation. Attention, concentration was improving. He was alert and oriented to person place and time today. Insight appeared improving. Judgment is limited. His impulse control was limited but improving. There was continued evidence of abulia and amotivation. Discharge Data Studies Completed and Pending: Laboratory Results WBC 9.7 10^3/uL (4.0- 10.0) 01/05/23 10:49 RBC 5.73 10^6/uL (4.1 -5.3) H 01/05/23 10:49 Hgb 15.5 g/dL (11.7-1 6.6) 01/05/23 10:49 Hct 47.2 % (42.0-52.0 ) 01/05/23 10:49 MCV 82.4 fl (80-94) 01/05/23 10:49 MCH 27.1 pg (28.0-34. 0) L 01/05/23 10:49 MCHC 32.8 g/dL (30.0-3 6.0) 01/05/23 10:49 RDW 12.3 % (12.1-15.1 ) 01/05/23 10:49 Plt Count 417 10^3/cmm (130 -400) H 01/05/23 10:49 MPV 9.5 fL (7.4-10.4) 01/05/23 10:49 Neut % (Auto) 65.1 % 01/05/23 10:49 Lymph % (Auto) 25.3 % 01/05/23 10:49 Vilas % (Auto) 8.4 % 01/05/23 10:49 Eos % (Auto) 0.4 % 01/05/23 10:49 Baso % (Auto) 0.4 % 01/05/23 10:49 Neut # (Auto) 6.34 10^3/uL (1.8 -7.7) 01/05/23 10:49 Lymph # (Auto) 2.5 10^3/uL (0.8- 4.8) 01/05/23 10:49 Vilas # (Auto) 0.8 10^3/uL (0.2- 0.9) 01/05/23 10:49 Eos # (Auto) 0.0 10^3/uL (0.0- 0.8) 01/05/23 10:49 Baso # (Auto) 0.0 10^3/uL (0.0- 0.1) 01/05/23 10:49 Nucleated RBC % (a uto) 0 % 01/05/23 10:49 Nucleated RBCs # 0.0 /100WBC 01/05/23 10:49 Sodium 140 mmol/L (136-1 45) 01/05/23 10:49 Potassium 3.9 mmol/L (3.5-5 .1) 01/05/23 10:49 Chloride 102 mmol/L (98-10 7) 01/05/23 10:49 Carbon Dioxide 23 mmol/L (22-29) 01/05/23 10:49 Anion Gap 18.9 (5-19) 01/05/23 10:49 BUN 28 mg/dL (6-20) H 01/05/23 10:49 Creatinine 1.1 mg/dL (0.7-1. 2) 01/05/23 10:49 GFR Calculation 77.1 mL/min (90-1 30) L 01/05/23 10:49 Glucose 94 mg/dL (65-115) 01/05/23 10:49 Calculated Osmolal ity 295 mOsm/kg (285- 295) 01/05/23 10:49 Calcium 9.6 mg/dL (8.5-10 .5) 01/05/23 10:49 Total Bilirubin 1.9 mg/dL (0.15-1 .2) H 01/05/23 10:49 AST 9 U/L (0-40) 01/05/23 10:49 ALT 8 U/L (0-41) 01/05/23 10:49 Alkaline Phosphata se 65 U/L (40-130) 01/05/23 10:49 Total Protein 8.7 g/dL (6.6-8.7 ) 01/05/23 10:49 Albumin 5.0 g/dL (3.5-5.2 ) 01/05/23 10:49 Globulin 3.7 g/dL (1.3-4.6 ) 01/05/23 10:49 TSH 0.99 uIU/mL (0.27 -4.20) 01/05/23 10:49 Salicylates 0.5 mg/dL (3-10) L 01/05/23 10:49 Urine Opiates Scre en Negative ng/mL (N egative) 01/05/23 18:16 Acetaminophen < 5.0 ug/mL (10-3 0) L 01/05/23 10:49 Ur Barbiturates Sc reen Negative ng/mL (N egative) 01/05/23 18:16 Ur Phencyclidine S crn Negative ng/mL (N egative) 01/05/23 18:16 Ur Amphetamines Sc reen Negative ng/mL (N egative) 01/05/23 18:16 U Benzodiazepines Scrn Negative ng/mL (N egative) 01/05/23 18:16 Urine Cocaine Scre en Negative ng/mL (N egative) 01/05/23 18:16 U Marijuana (THC) Screen Positive ng/mL (N egative) H 01/05/23 18:16 Ethyl Alcohol < 10 mg/dL (0-10) 01/05/23 10:49 Vitals: Last Vital Signs Temp 98.1 F 01/24/23 06:00 Pulse 73 01/24/23 06:00 Resp 16 01/24/23 06:00 BP 114/67 01/24/23 06:00 Pulse Ox 96 01/24/23 06:00 O2 Del Method Room Air 01/21/23 22:00 Discharge Plan Discharge Patient Disposition: Home Condition: Stable Prescriptions: New trazodone 50 mg Tablet 50 mg PO BEDTIME PRN (Reason: Sleep) 30 Days Qty: 30 1RF Invega Sustenna 156 mg/mL syringe 156 mg IM Q30D Qty: 1 1RF Rx Instructions: Next injection 02/18/23 and then as directed thereafter. Discontinued Kratom See Rx Instructions .ROUTE .COMPLEX Rx Instructions: as directed Discharge Orders: Discharge Order (Routine); Ordered 01/24/23 Ordered By: Rob Pierce Referrals: [facility] [Outside] - 01/31/23 2:30 pm ( Initial appointment set for 01/31/23 @ 2:30 pm) Jennifer Larkin MD [Primary Care Provider] - 01/25/23 2:00 pm (Follow up. ) Discharge Diet: Regular Discharge Activity: Resume usual activity Patient Instructions: Trazodone (By mouth), Paliperidone (By mouth) (Invega), Schizophrenia (DC), Anxiety (DC), Adult Overdose (ED), Suicide Prevention (DC), Opioid Safety Discharge Attestations NPU Time Spent in Discharge Care*: less than 30 min Specific Discharge Activities: Specific discharge activities: educating patient, discussing with director of casework services/social workers/dc planners, documenting/other paperwork and evaluating patient/reviewing data Coding Level of Care Code Acute Chg FW DC note Diagnoses Acute psychosis F23 Suicidal ideation R45.851 Overdose T50.901A History of substance abuse F19.11 Hepatitis C infection B19.20
[2023-01-24 13:18] VITALS: BP 114/67; PULSE 73; RESP 16; TEMP 36.7; O2SAT 96
== END 2023-01-24 15:17 | disposition home or self-care (01) | DRG 885 ==
LOC: ER 12:10 → NP 12:34
PROVIDERS: Admitting Provider Psychiatry & Neurology Psychiatry; Emergency Provider Emergency Medicine; PCP Family Medicine; Visit Provider Psychiatry & Neurology Psychiatry
DX: F23 Brief psychotic disorder (principal); R45.851 Suicidal ideations; F06.1 Catatonic disorder due to known physiological condition; B19.20 Unspecified viral hepatitis C without hepatic coma; Z87.891 Personal history of nicotine dependence; F15.91 Other stimulant use, unspecified, in remission; F14.91 Cocaine use, unspecified, in remission; F11.91 Opioid use, unspecified, in remission; F12.90 Cannabis use, unspecified, uncomplicated; Z59.00 Homelessness unspecified
CPT/HCPCS: 80053; 80306; 80307; 84443; 85025; 93005; 96372; 97150; 97165; 99285; Q0162

== ENCOUNTER 2023-01-26 10:55 | Emergency (ER) | payer OTHER, MEDICAID, SELFPAY ==
[2023-01-26 11:58] VITALS: BP 132/88; PULSE 82; RESP 16; TEMP 36.7; O2SAT 98; BMI 23.5
--- NOTE | 2023-01-26 12:45 | W.ED.MALEGU ---
HPI - Male Genitourinary General: Chief complaint: Urogenital-Male Stated complaint: possibly STD Time Seen by Provider: 01/26/23 12:27 Source: patient Mode of arrival: ambulatory Limitations: no limitations History of Present Illness: Patient is a 32-year-old male who presents to ED today with complaint of dysuria and penile itching as well as some scant discharge that has been present over the past 6 months. Patient states symptoms started after having unprotected intercourse with a new sexual partner. Patient states he has delayed any form of medical evaluation and this is the first time he is being seen for this complaint. He denies any rashes, lesions, or sores to his genitalia. He is not running any fevers. MD Complaint: penile discharge, dysuria and other (itching) Onset (ago): month(s) Duration: constant Location: penis Relieving factors: none Exacerbating factors: urination Context: new sexual partner Associated symptoms: Reports discharge and dysuria; Deny hematuria, nausea or vomiting Related Data: Sexually active: Yes Review of Systems Const: Denies: fever(s), chills, body aches, fatigue or malaise GI: Denies: abdominal pain, nausea, vomiting or change in bowel habits : Reports: dysuria and penile discharge; Denies: flank pain, difficulty urinating, urinary frequency, urinary urgency, urinary hesitancy, urinary dribbling, change in urine stream, hematuria, genital lesions, testicular pain, testicular mass, scrotal swelling or hematospermia Musc: Denies: back pain Skin/Breast: Denies: rash PFSH ED PFSH: Medical History Hepatitis C infection s/p treatment, neg viral load History of substance abuse Surgical History No history of previous surgery Family History Mother Cancer lymphoma Other Hypertension Denies family history of Diabetes CAD (coronary artery disease) Dementia Chronic kidney disease (CKD) Stroke Social History Quit status (tobacco): has quit using tobacco Year quit tobacco: 2021 Alcohol intake: former Substance/Drug Use: former Date of last use: July 2022 Other details last substance use: hx iv drugs, meth, cocaine, opiods Number of children: 2 service: No Current occupational status: employed Current occupation: warehouse Physical Exam Const: COMMON NORMALS: no acute distress, average body habitus, patient oriented x3, no limitations, healthy appearing, alert and well nourished GI: COMMON NORMALS: Normal to inspection, nondistended, normoactive bowel sounds present, Soft to palpation and non-tender PALPATION: Yes Soft to palpation : COMMON NORMALS: Yes no CVA tenderness, Yes normal external exam, Yes Testes normal, Yes scrotum normal, Yes no scrotal swelling and Yes No hernias present BLADDER/KIDNEY EXAM: Yes no CVA tenderness PENIS: normal penis and circumcised MEATUS: meatus normal TESTES: Yes testicular lie normal Back/Pelvis: COMMON NORMALS: no CVA tenderness Neuro: COMMON NORMALS: patient oriented x3 SENSORIUM/ORIENTATION: Yes alert Course Vital Signs: Vital signs: Vital Signs Temperature 98.0 F 01/26/23 11:58 Pulse Rate 82 01/26/23 11:58 Respiratory Rate 16 01/26/23 11:58 Blood Pressure 132/88 01/26/23 11:58 Pulse Oximetry 98 01/26/23 11:58 Oxygen Delivery Me thod Room Air 01/26/23 11:58 MDM - Male Medical Decision Making Patient has a normal physical exam. UA is clear. We will run gonorrhea/chlamydia off of his urine. He should be called with any positive results. Recommend he contact us in a few days if he has not heard results by then. Abstain from sexual activity until he gets results. If positive he will require treatment. Patient verbalized understanding of current plan. Lab Data Laboratory Results Urine Color Yellow (Yellow) 01/26/23 13:18 Urine Appearance Clear (CLEAR) 01/26/23 13:18 Urine pH 5 (5-7) 01/26/23 13:18 Ur Specific Mccoll 1.025 (1.005-1.030) 01/26/23 13:18 Urine Protein Neg (Negative) 01/26/23 13:18 Urine Glucose (UA) Norm (Normal) 01/26/23 13:18 Urine Ketones Negative (Negative) 01/26/23 13:18 Urine Blood Neg (Negative) 01/26/23 13:18 Urine Nitrate Negative (Negative) 01/26/23 13:18 Urine Bilirubin Neg (Negative) 01/26/23 13:18 Urine Urobilinogen Neg mg/dL (Negative) 01/26/23 13:18 Ur Leukocyte Esterase Negative (Negative) 01/26/23 13:18 Discharge Plan Discharge Patient Disposition: Home Clinical Impression: Dysuria Condition: Stable Prescriptions: No Action trazodone 50 mg Tablet 50 mg PO BEDTIME PRN (Reason: Sleep) 30 Days Qty: 30 1RF Invega Sustenna 156 mg/mL syringe 156 mg IM Q30D Qty: 1 1RF Rx Instructions: Next injection 02/18/23 and then as directed thereafter. Discharge Orders: Discharge ED (Routine); Ordered 01/26/23 Ordered By: Veronica Cortes Referrals: Jennifer Larkin MD [Primary Care Provider] - Activity Restrictions/Additional Instructions: As we discussed labs should contact you if your gonorrhea/chlamydia tests come back positive. You may call in 2 to 3 days to obtain results. If these are both negative I recommend following up with primary care for further evaluation of your painful urination and urethral itching. Coding Level of Care Code ED Clinical Support Manager for Poncho Chavez
[2023-01-26 13:26] LABS: Add Urine Microscopic? NO; Charge for UA Resulting for Rev
[2023-01-26 13:30] LABS: Bilirubin Urine Neg (Negative); Blood Urine Neg (Negative); Glucose Urine UA Norm (Normal); Ketones Urine Negative (Negative); Leukocyte Esterase Urine Negative (Negative); Nitrate Urine Negative (Negative); Protein Urine Neg (Negative); Specific Gravity, Urine 1.025 (1.005-1.030); Urine Appearance Clear (CLEAR); Urine Color Yellow (Yellow); Urobilinogen Urine Neg (Negative); pH Urine 5 (5-7)
[2023-01-26 13:57] VITALS: BP 112/73; PULSE 73; RESP 18; O2SAT 97
== END 2023-01-26 13:58 | disposition home or self-care (01) ==
PROVIDERS: Emergency Provider Physician Assistant; PCP Family Medicine
DX: R30.0 Dysuria (principal); Z86.19 Personal history of other infectious and parasitic diseases; Z87.891 Personal history of nicotine dependence
CPT/HCPCS: 81003; 87491; 87591; 99283

== ENCOUNTER 2023-02-05 02:04 | Emergency (ER) | payer MEDICAID, SELFPAY ==
[2023-02-05 02:13] VITALS: BP 159/86; PULSE 86; RESP 18; TEMP 36.8; O2SAT 98; BMI 23.5
[2023-02-05] MEDS: OLANZapine 10 mg ODT 20 MG PO (02:27)
[2023-02-05] MEDS: LORazepam 2 mg/mL INJ 1 mL IM (02:28)
--- NOTE | 2023-02-05 03:06 | W.ED.ANXIETY ---
HPI - Anxiety General: Chief Complaint: Anxiety Stated Complaint: MHE Time Seen by Provider: 02/05/23 02:19 Source: patient History of Present Illness: 32-year-old male with a history of psychosis. He presents with a feeling of increased anxiety. He says that he has had 2 panic attacks earlier in the evening, which he has been trying to deal with on his own. He says that he feels another one coming on, and it worries him. He denies homicidal or suicidal ideation. He denies hallucinations or delirium. He has been using Benadryl to help him try to sleep, but he maintains that he is using Benadryl at appropriate doses listed on the bottle only. He states I am afraid the panic attack is going to be damage to my body . MD complaint: anxiety Onset (ago): hour(s) Symptoms: dyspnea and sense of impending doom Severity: moderate Quality: constant Place: home History of similar episodes: Yes Provoking factors: emotional stress Relieving factors: nothing Associated symptoms: Reports chills, nausea, palpitations, short of breath and weakness; Deny chest pain, confusion, diaphoresis, fever(s), headache(s) or vomiting Review of Systems Const: Reports: chills; Denies: fever(s) or diaphoresis Card: Reports: palpitations; Denies: chest pain Resp: Reports: dyspnea; Denies: productive cough or non-productive cough GI: Reports: nausea; Denies: abdominal pain or vomiting Skin/Breast: Denies: rash Neuro: Denies: headache(s) or confusion PFS ED PFSH: Medical History Hepatitis C infection s/p treatment, neg viral load History of substance abuse Surgical History No history of previous surgery Family History Mother Cancer lymphoma Other Hypertension Denies family history of Diabetes CAD (coronary artery disease) Dementia Chronic kidney disease (CKD) Stroke Social History Quit status (tobacco): has quit using tobacco Year quit tobacco: 2021 Alcohol intake: former Substance/Drug Use: former Date of last use: July 2022 Other details last substance use: hx iv drugs, meth, cocaine, opiods Number of children: 2 service: No Current occupational status: employed Current occupation: warehouse Physical Exam Const: GENERAL APPEARANCE: anxious HENMT: COMMON NORMALS: normocephalic, atraumatic and Normal external nose present HEAD & SCALP: normocephalic and atraumatic FACE & SINUS: normal facial exam and face symmetric NOSE: Normal external nose present Eye: COMMON NORMALS: Equal, round and reactive pupils present and EOMs intact bilaterally PUPIL: Yes Equal, round and reactive pupils present Neck/C-Spine: GENERAL: Yes trachea midline Chest: CHEST: Yes Symmetrical chest wall rise Resp: COMMON NORMALS: normal respiratory effort, No retractions, No use of accessory muscles and clear to auscultation bilaterally AUSCULTATION: clear to auscultation bilaterally Cardio: COMMON NORMALS: regular rate and regular rhythm RATE: regular rate RHYTHM: regular rhythm GI: COMMON NORMALS: Normal to inspection, nondistended, normoactive bowel sounds present Extremity: COMMON NORMALS: no pedal edema Neuro: EVELYN COMA SCALE: document GCS findings Evelyn coma scale eye opening: Spontaneous [place] coma scale verbal response: Orientated [place] coma scale motor response: Obey commands [place] coma scale total score: 15 SENSORY EXAM: Yes extremities (intact) Psych: COMMON NORMALS: cooperative and speech normal ATTITUDE: Yes engaged ACTIVITY/MOTOR BEHAVIOR: No fidgeting SPEECH: Yes normal speech MOOD & AFFECT: Yes depressed mood THOUGHT PROCESS: disorganized THOUGHT CONTENT: No Suicidality present, No Homicidality present, No delusions and No Hallucination(s) present INSIGHT: Fair insight present (Psych) JUDGEMENT: Fair judgement present (Psych) Skin: COMMON NORMALS: no rashes or lesions noted GENERAL SKIN EXAM: no rashes or lesions noted Course Vital Signs: Vital signs: Vital Signs Temperature 98.2 F 02/05/23 02:13 Pulse Rate 80 02/05/23 04:04 Respiratory Rate 16 02/05/23 04:04 Blood Pressure 159/86 02/05/23 02:13 Pulse Oximetry 96 02/05/23 04:04 MDM - Anxiety Medical Decision Making Patient was given 2 mg IM Ativan, and 20 mg Zyprexa Zydis with improvement in anxiety. He is not suicidal or homicidal. Symptoms resolved after medication. EKG is normal. He will be discharged. Discharge Plan Discharge Patient Disposition: Home Clinical Impression: Acute anxiety Condition: Stable Prescriptions: No Action trazodone 50 mg Tablet 50 mg PO BEDTIME PRN (Reason: Sleep) 30 Days Qty: 30 1RF Invega Sustenna 156 mg/mL syringe 156 mg IM Q30D Qty: 1 1RF Rx Instructions: Next injection 02/18/23 and then as directed thereafter. Discharge Orders: Discharge ED (Routine); Ordered 02/05/23 Ordered By: Federico Vargas Referrals: Jennifer Larkin MD [Primary Care Provider] - 1-3 days Patient Instructions: Anxiety (ED) Coding Level of Care Code ED Corporate Buyer for Poncho Chavez
--- NOTE | 2023-02-05 03:21 | ECG_ITS ---
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 Measurements Intervals [place] Rate: 73 P: 81 HI: 150 QRS: 92 QRSD: 94 T: 62 QT: 383 QTc: 423 Interpretive Statements SINUS RHYTHM WITH SINUS ARRHYTHMIA BORDERLINE RIGHT AXIS DEVIATION [QRS AXIS > 90] Compared to ECG 01/05/2023 11:36:22 T-wave abnormality no longer present Electronically Signed On 02-05-2023 9:55:37 CDT by Kannan Carrion M.D. [email or web address]
[2023-02-05 04:04] VITALS: PULSE 80; RESP 16; O2SAT 96
== END 2023-02-05 04:02 | disposition home or self-care (01) ==
PROVIDERS: Emergency Provider Emergency Medicine; PCP Family Medicine
DX: F41.9 Anxiety disorder, unspecified (principal); Z87.891 Personal history of nicotine dependence; Z86.19 Personal history of other infectious and parasitic diseases
CPT/HCPCS: 93005; 96372; 99284; J2060

== ENCOUNTER 2023-02-07 20:22 | Emergency (ER) | payer MEDICAID, SELFPAY ==
[2023-02-07 20:27] VITALS: BP 145/81; PULSE 94; RESP 15; TEMP 36.6; O2SAT 97
--- NOTE | 2023-02-07 20:40 | W.ED.ANXIETY ---
HPI - Anxiety General: Chief Complaint: Anxiety Stated Complaint: panic attack Time Seen by Provider: 02/07/23 20:38 Source: patient Mode of arrival: ambulatory Limitations: no limitations History of Present Illness: 32-year-old male states he has been having anxiety attacks frequently over the last few weeks he states that today roughly 30 minutes ago he started to feel shivering and he was having a hard time breathing felt extremely anxious states that since driving up here he actually feels improved denies any dyspnea or chest pain currently states he just feels kind of shaky he denies any fever denies any worsening proving factors. Associated symptoms: Reports palpitations; Deny chest pain, chills, fever(s), headache(s) or vomiting Review of Systems Const: Denies: fever(s) or chills Eyes: Denies: blurry vision ENMT: Denies: throat pain Card: Reports: palpitations; Denies: chest pain Resp: Reports: dyspnea GI: Denies: vomiting Musc: Denies: back pain Skin/Breast: Denies: rash Neuro: Denies: headache(s) Psych: Reports: anxiety PFSH ED PFSH: Medical History Hepatitis C infection s/p treatment, neg viral load History of substance abuse Surgical History No history of previous surgery Family History Mother Cancer lymphoma Other Hypertension Denies family history of Diabetes CAD (coronary artery disease) Dementia Chronic kidney disease (CKD) Stroke Social History Quit status (tobacco): has quit using tobacco Year quit tobacco: 2021 Alcohol intake: former Substance/Drug Use: former Date of last use: July 2022 Other details last substance use: hx iv drugs, meth, cocaine, opiods Number of children: 2 service: No Current occupational status: employed Current occupation: warehouse Physical Exam Const: COMMON NORMALS: patient oriented x3 GENERAL APPEARANCE: anxious HENMT: COMMON NORMALS: normocephalic and atraumatic HEAD & SCALP: normocephalic and atraumatic Eye: COMMON NORMALS: conjunctivae normal CONJUNCTIVA: Yes conjunctivae normal Chest: COMMONS NORMALS: normal inspection of the chest Resp: COMMON NORMALS: normal respiratory effort Cardio: COMMON NORMALS: regular rate and regular rhythm RATE: regular rate RHYTHM: regular rhythm GI: INSPECTION: Yes normal to inspection Extremity: COMMON NORMALS: normal to inspection Neuro: COMMON NORMALS: patient oriented x3 Psych: COMMON NORMALS: mental status grossly normal Course Vital Signs: Vital signs: Vital Signs Temperature 97.8 F 02/07/23 20:27 Pulse Rate 86 02/07/23 20:50 Respiratory Rate 15 02/07/23 20:27 Blood Pressure 133/89 02/07/23 20:50 Pulse Oximetry 98 02/07/23 20:50 Oxygen Delivery Me thod Room Air 02/07/23 20:50 MDM - Anxiety Medical Decision Making Patient presents here with anxiety he is well-appearing here he is feeling improved no signs of cardiac cause EKG x-ray is normal he is stable for discharge at this time we will place him on hydroxyzine he is return if worsening. Discharge Plan Discharge Patient Disposition: Home Clinical Impression: Anxiety Condition: Stable Prescriptions: New hydroxyzine HCl 25 mg tablet 25 mg PO Q8H PRN (Reason: anxiety) Qty: 20 0RF No Action trazodone 50 mg Tablet 50 mg PO BEDTIME PRN (Reason: Sleep) 30 Days Qty: 30 1RF Invega Sustenna 156 mg/mL syringe 156 mg IM Q30D Qty: 1 1RF Rx Instructions: Next injection 02/18/23 and then as directed thereafter. Discharge Orders: Discharge ED (Routine); Ordered 02/07/23 Ordered By: Eliane Duncan Referrals: Jennifer Larkin MD [Primary Care Provider] - 1-3 days Discharge Diet: Advance as tolerated Discharge Activity: Resume usual activity Patient Instructions: Anxiety (ED) Coding Level of Care Code ED Silo Operator for Poncho Chavez
[2023-02-07] MEDS: LORazepam 1 mg Tablet PO (20:46)
--- NOTE | 2023-02-07 20:47 | ECG_ITS ---
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 Measurements Intervals [place] Rate: 90 P: 59 OK: 128 QRS: 73 QRSD: 87 T: 44 QT: 379 QTc: 466 Interpretive Statements SINUS RHYTHM Compared to ECG 02/05/2023 03:21:09 Sinus arrhythmia no longer present Electronically Signed On 02-08-2023 11:53:47 CDT by Efraín Barnhart M.D. [id number]
[2023-02-07 20:50] VITALS: BP 133/89; PULSE 86; O2SAT 98
[2023-02-07 21:20] VITALS: BP 139/84; PULSE 81; RESP 20; O2SAT 96
[2023-02-07 21:21] VITALS: BP 139/84; PULSE 82; RESP 20; O2SAT 96
== END 2023-02-07 21:24 | disposition home or self-care (01) ==
PROVIDERS: Emergency Provider Emergency Medicine; PCP Family Medicine
DX: F41.9 Anxiety disorder, unspecified (principal); Z87.891 Personal history of nicotine dependence; Z86.19 Personal history of other infectious and parasitic diseases
CPT/HCPCS: 93005; 99283

== ENCOUNTER → 2023-02-08 15:56 | Outpatient (BNVA) | payer MEDICAID, SELFPAY | PROVIDERS: PCP Family Medicine; Visit Provider Family Medicine | DX: R30.9 Painful micturition, unspecified (principal); R36.9 Urethral discharge, unspecified; R30.0 Dysuria; L29.3 Anogenital pruritus, unspecified | CPT/HCPCS: 81000; 87491; 87591 ==

== ENCOUNTER → 2023-02-09 08:03 | Outpatient (BNVA) | payer MEDICAID, SELFPAY | PROVIDERS: PCP Family Medicine; Visit Provider Family Medicine | DX: L29.3 Anogenital pruritus, unspecified (principal) | CPT/HCPCS: 81000 ==

== ENCOUNTER 2023-06-26 17:08 | Emergency (ER) | payer MEDICAID, SELFPAY ==
[2023-06-26 17:10] VITALS: BP 136/71; PULSE 87; RESP 16; TEMP 36.4; O2SAT 98; BMI 26.6
--- NOTE | 2023-06-26 18:00 | W.ED.GENADLT ---
HPI - General Adult General: Chief complaint: General Medical Stated complaint: pinky on left hand swollen Time Seen by Provider: 06/26/23 17:22 History of Present Illness: Patient presents to the emergency department today for evaluation treatment of redness and swelling to the distal end of his left pinky. Patient states he felt like the cuticle on the side of his nail ripped approximately 5 to 6 days ago and since then, has developed redness and increasing swelling. He presents today as it is extremely tender and continues to swell. Patient denies biting his nails or biting his cuticles. Review of Systems General: Reports: 10 or more systems reviewed and unremarkable except in HPI and below PFSH ED PFSH: Medical History Hepatitis C infection s/p treatment, neg viral load History of substance abuse Psychiatric care Surgical History No history of previous surgery Family History Mother Cancer lymphoma Other Hypertension Denies family history of Diabetes CAD (coronary artery disease) Dementia Chronic kidney disease (CKD) Stroke Social History Quit status (tobacco): has quit using tobacco Year quit tobacco: 2021 Alcohol intake: former Substance/Drug Use: former Date of last use: July 2022 Other details last substance use: hx iv drugs, meth, cocaine, opiods Number of children: 2 service: No Current occupational status: employed Current occupation: [employer] Physical Exam Const: COMMON NORMALS: no acute distress, average body habitus and patient oriented x3 HENMT: COMMON NORMALS: normocephalic, atraumatic, hearing grossly normal bilaterally, Normal external nose present and moist oral mucous membranes HEAD & SCALP: normocephalic and atraumatic NOSE: Normal external nose present Eye: COMMON NORMALS: Equal, round and reactive pupils present, EOMs intact bilaterally and conjunctivae normal CONJUNCTIVA: Yes conjunctivae normal PUPIL: Yes Equal, round and reactive pupils present Neck/C-Spine: COMMON NORMALS: no JVD Lymph: LYMPHATIC: no lymphadenopathy noted Resp: COMMON NORMALS: normal respiratory effort, No retractions and No use of accessory muscles Cardio: COMMON NORMALS: no JVD, regular rate and regular rhythm RATE: regular rate RHYTHM: regular rhythm GI: COMMON NORMALS: Normal to inspection, nondistended, normoactive bowel sounds present : COMMON NORMALS: Yes no CVA tenderness BLADDER/KIDNEY EXAM: Yes no CVA tenderness Back/Pelvis: COMMON NORMALS: no CVA tenderness and thoraco-lumbar ROM normal Extremity: COMMON NORMALS: normal to inspection, full ROM and capillary refill normal Neuro: COMMON NORMALS: patient oriented x3 Psych: COMMON NORMALS: mental status grossly normal, Normal thought process present, cooperative, normal affect and activity/motor behavior normal THOUGHT PROCESS: Normal thought process present Skin: NARRATIVE SKIN EXAM: Distal end of the patient's left fifth digit is erythematous and swollen. Swelling primarily to the posterior surface of the distal part of the nail with minimal erythema affecting the finger pad at this time. Patient has a yellow discoloration of the skin along the medial side of the nail-no active draining. Course Vital Signs: Vital signs: Vital Signs Temperature 97.6 F 06/26/23 17:10 Pulse Rate 87 06/26/23 17:10 Respiratory Rate 16 06/26/23 17:10 Blood Pressure 136/71 06/26/23 17:10 Pulse Oximetry 98 06/26/23 17:10 Oxygen Delivery Me thod Room Air 06/26/23 17:10 MDM - General Adult Medical Decision Making Patient's physical examination is consistent with paronychia. Patients finger was cleaned with Betadine and after using a topical lidocaine spray, 18-gauge needle was used to poke into the paronychia which resulted in a yellow and green purulent drainage. Infection was expressed until no purulent material was left. Wound was then wrapped with Telfa and Coban. Patient was given mupirocin cream and a first dose of doxycycline. Consulted up-to-date and, as patient did not sustain the injury from biting his nails, indicates doxycycline is appropriate. Patient was given instructions for warm soaks, wound cleaning, bandage changing with application of Bactroban. He is to continue taking his doxycycline. Patient was given return precautions and infection monitoring instructions and should be seen and reevaluated if acutely worsening. Patient verbalizes understanding and agreement to treatment plan. Differential Diagnosis DDx: Paronychia, cellulitis, felon, subungual hematoma No radiology studies performed this visit Discharge Plan Discharge Patient Disposition: Home Clinical Impression: Paronychia of finger of left hand Condition: Stable Prescriptions: New doxycycline hyclate 100 mg tablet 100 mg PO BID 10 Days Qty: 20 0RF No Action hydroxyzine HCl 25 mg tablet 25 mg PO Q8H PRN (Reason: anxiety) Qty: 20 0RF trazodone 50 mg Tablet 50 mg PO BEDTIME PRN (Reason: Sleep) 30 Days Qty: 30 1RF Invega Sustenna 156 mg/mL syringe 156 mg IM Q30D Qty: 1 1RF Rx Instructions: Next injection 02/18/23 and then as directed thereafter. Discharge Orders: Discharge ED (Routine); Ordered 06/26/23 Ordered By: Yasmin Gomes Discharge Diet: Usual diet Discharge Activity: Increase activity as tolerated Patient Instructions: Paronychia (ED) Activity Restrictions/Additional Instructions: Examination today reveals development of a paronychia. As we discussed this is a bacterial infection that typically invades around injury to the cuticle. This is typically caused by staph and strep-since you do not bite your nails. We are starting you on antibiotics to help treat but, we did drain the paronychia here in the emergency department. We recommend leaving your bandaging on until tomorrow. After tomorrow, we recommend washing the wound twice a day with warm water and mild soap and keeping covered with clean bandaging. You can also apply the topical mupirocin cream during these bandage changes. Is very important that you soak your finger in warm water for 15 to 20 minutes during these bandage changes as warm soaks can also help the healing process of a paronychia. Take 800 mg ibuprofen every 8 hours to help with pain as well. Continue to monitor for any continued spreading redness, worsening or continued swelling or worsening pain. You may still be tender and sore for several days but should notice significant improvement after approximately 48 hours. Coding Level of Care Code ED Metal Drill Operator for Poncho Chavez
== END 2023-06-26 18:02 | disposition home or self-care (01) ==
PROVIDERS: Emergency Provider Physician Assistant
DX: L03.012 Cellulitis of left finger (principal); Z87.891 Personal history of nicotine dependence; Z86.19 Personal history of other infectious and parasitic diseases
CPT/HCPCS: 99283

== ENCOUNTER 2023-08-27 16:51 | Emergency (ER) | payer MEDICAID, SELFPAY ==
[2023-08-27 17:02] VITALS: BP 135/89; PULSE 87; RESP 18; TEMP 36.8; O2SAT 98; BMI 25.0
== END 2023-08-27 20:00 | disposition left against medical advice (07) ==
PROVIDERS: Emergency Provider Family Medicine
DX: Z53.21 Procedure and treatment not carried out due to patient leaving prior to being seen by health care provider (principal)

== ENCOUNTER 2023-10-04 19:26 | Emergency (ER) | payer MEDICAID, SELFPAY ==
[2023-10-04 19:37] VITALS: BP 134/83; PULSE 99; RESP 16; TEMP 36.9; O2SAT 97; BMI 25.0
--- NOTE | 2023-10-04 19:51 | W.ED.DENTAL ---
HPI - Dental/Oral General: Chief complaint: Dental/Oral Stated complaint: Tooth Ache Time Seen by Provider: 10/04/23 19:30 Source: patient Mode of arrival: ambulatory Limitations: no limitations History of Present Illness: 33-year-old male states he had left upper dental pain over the last 4 days. He states had some left-sided facial swelling as well. He states pain sharp in nature rates a 5 out of 10 denies any trismus denies difficulty swallowing denies any fevers. Associated symptoms: Denies fever(s) Review of Systems Const: Denies: fever(s), chills, body aches or change in appetite ENMT: Reports: dental pain; Denies: throat pain Card: Denies: chest pain Resp: Denies: dyspnea GI: Denies: abdominal pain, nausea, vomiting or diarrhea Musc: Denies: neck pain or back pain Skin/Breast: Denies: rash Neuro: Denies: headache(s) PFSH ED PFSH: Medical History Psychiatric care History of substance abuse Hepatitis C infection s/p treatment, neg viral load Surgical History No history of previous surgery Family History Mother Cancer lymphoma Other Hypertension Denies family history of Diabetes CAD (coronary artery disease) Dementia Chronic kidney disease (CKD) Stroke Social History Quit status (tobacco/nicotine): has quit using Year quit tobacco: 2021 Alcohol intake: former Substance/Drug Use: former Date of last use: July 2022 Number of children: 2 service: No Current occupational status: employed Current occupation: [employer] Physical Exam Const: COMMON NORMALS: no acute distress, patient oriented x3 and healthy appearing HENMT: COMMON NORMALS: normocephalic and atraumatic HEAD & SCALP: normocephalic and atraumatic OTHER: Tenderness to left upper molar slight swelling over the face no abscess no trismus Eye: COMMON NORMALS: Equal, round and reactive pupils present and EOMs intact bilaterally PUPIL: Yes Equal, round and reactive pupils present Neck/C-Spine: COMMON NORMALS: full ROM and supple Chest: COMMONS NORMALS: normal inspection of the chest Resp: COMMON NORMALS: normal respiratory effort Extremity: COMMON NORMALS: normal to inspection and full ROM Neuro: COMMON NORMALS: patient oriented x3, moves all extremities and no focal motor deficits Psych: COMMON NORMALS: mental status grossly normal, Normal thought process present and cooperative THOUGHT PROCESS: Normal thought process present Skin: COMMON NORMALS: no rashes or lesions noted and no wounds GENERAL SKIN EXAM: no rashes or lesions noted Course Vital Signs: Vital signs: Vital Signs Temperature 98.4 F 10/04/23 19:37 Pulse Rate 99 10/04/23 19:37 Respiratory Rate 16 10/04/23 19:37 Blood Pressure 134/83 10/04/23 19:37 Pulse Oximetry 97 10/04/23 19:37 [facility] - Dental/Oral Medical Decision Making Patient presents here with left-sided facial pain and dental pain likely dental infection he has no signs of abscess we will start him on antibiotics we will prescribe him Naprosyn he is to follow-up with a Medical Records I reviewed the patient's medical records. No radiology studies performed this visit Discharge Plan Discharge Patient Disposition: Home Clinical Impression: Toothache Condition: Stable Prescriptions: New cephalexin 500 mg capsule 500 mg PO TID 7 Days Qty: 21 0RF Naprosyn 500 mg tablet 500 mg PO BID PRN (Reason: pain) Qty: 20 0RF No Action hydroxyzine HCl 25 mg tablet 25 mg PO Q8H PRN (Reason: anxiety) Qty: 20 0RF trazodone 50 mg Tablet 50 mg PO BEDTIME PRN (Reason: Sleep) 30 Days Qty: 30 1RF Invega Sustenna 156 mg/mL syringe 156 mg IM Q30D Qty: 1 1RF Rx Instructions: Next injection 02/18/23 and then as directed thereafter. Discharge Orders: Discharge ED (Routine); Ordered 10/04/23 Ordered By: Eliane Duncan Discharge Diet: Advance as tolerated Discharge Activity: Resume usual activity Patient Instructions: Toothache (ED) Coding Level of Care Code ED Production Aide for Poncho Chavez
[2023-10-04] MEDS: HYDROcodone-acetaminophen 5-325 mg Tablet 1 TAB PO (19:57)
[2023-10-04] MEDS: cephALEXin 500 mg Capsule PO (19:57)
[2023-10-04 19:58] VITALS: BP 134/83; PULSE 99; RESP 16; TEMP 36.9; O2SAT 97
== END 2023-10-04 19:59 | disposition home or self-care (01) ==
PROVIDERS: Emergency Provider Emergency Medicine
DX: K08.89 Other specified disorders of teeth and supporting structures (principal); Z86.19 Personal history of other infectious and parasitic diseases; Z87.891 Personal history of nicotine dependence
CPT/HCPCS: 99284

== ENCOUNTER 2023-10-06 16:15 | Emergency (ER) | payer MEDICAID, SELFPAY ==
[2023-10-06 16:39] VITALS: BP 136/83; PULSE 84; RESP 12; TEMP 36.7; O2SAT 99; BMI 25.0
--- NOTE | 2023-10-06 16:45 | W.ED.DENTAL ---
HPI - Dental/Oral General: Chief complaint: Dental/Oral Stated complaint: puss pocket on gums Time Seen by Provider: 10/06/23 16:37 History of Present Illness: Patient is concerned due to the development of a pus filled bulla to the gumline where his dental pain was. Patient was started on cephalexin 2 days ago. Patient appears nontoxic. Patient appears in no acute distress. Patient has very poor dentition. Review of Systems General: Reports: 10 or more systems reviewed and unremarkable except in HPI and below ENMT: Reports: mouth pain PFSH ED PFSH: Medical History Psychiatric care History of substance abuse Hepatitis C infection s/p treatment, neg viral load Surgical History No history of previous surgery Family History Mother Cancer lymphoma Other Hypertension Denies family history of Diabetes CAD (coronary artery disease) Dementia Chronic kidney disease (CKD) Stroke Social History Quit status (tobacco/nicotine): has quit using Year quit tobacco: 2021 Alcohol intake: former Substance/Drug Use: former Date of last use: July 2022 Number of children: 2 service: No Current occupational status: employed Current occupation: warehouse Physical Exam Const: COMMON NORMALS: alert HENMT: COMMON NORMALS: normocephalic HEAD & SCALP: normocephalic MOUTH: Normal oral and palatal mucosa present TEETH & GINGIVA: Yes poor dentition and Yes other (Abscess noted to the gingiva front central left incisor) THROAT: posterior oropharynx normal Neck/C-Spine: COMMON NORMALS: full ROM and no meningeal signs Resp: COMMON NORMALS: normal respiratory effort Cardio: COMMON NORMALS: regular rate RATE: regular rate Back/Pelvis: COMMON NORMALS: thoracic and lumbar spine normal to inspection Extremity: COMMON NORMALS: full ROM Neuro: SENSORIUM/ORIENTATION: Yes alert MENINGEAL SIGNS: Yes no meningeal signs Skin: COMMON NORMALS: turgor normal GENERAL SKIN EXAM: turgor normal Course Vital Signs: Vital signs: Vital Signs Temperature 98.0 F 10/06/23 16:39 Pulse Rate 84 10/06/23 16:39 Respiratory Rate 12 10/06/23 16:39 Blood Pressure 136/83 10/06/23 16:39 Pulse Oximetry 99 10/06/23 16:39 Oxygen Delivery Me thod Room Air 10/06/23 16:39 MDM - Dental/Oral Medical Decision Making 33-year-old male patient comes in for a abscess to his frontal incisor. On exam patient has some mild swelling and a abscess noted to the gingiva of the left front incisor. Posterior pharynx is normal. Respirations are normal. Vital signs are normal. Differential diagnosis dental abscess, dental caries, dental pain. No severe infection was noted. Patient was reassured about dental abscess and antibiotic use. Recommend continued antibiotic use and follow-up with dentist. Patient reported understanding and agreed to plan. No radiology studies performed this visit Discharge Plan Discharge Patient Disposition: Home Clinical Impression: Dental abscess Condition: Stable Prescriptions: No Action hydroxyzine HCl 25 mg tablet 25 mg PO Q8H PRN (Reason: anxiety) Qty: 20 0RF cephalexin 500 mg capsule 500 mg PO TID 7 Days Qty: 21 0RF Naprosyn 500 mg tablet 500 mg PO BID PRN (Reason: pain) Qty: 20 0RF trazodone 50 mg Tablet 50 mg PO BEDTIME PRN (Reason: Sleep) 30 Days Qty: 30 1RF Invega Sustenna 156 mg/mL syringe 156 mg IM Q30D Qty: 1 1RF Rx Instructions: Next injection 02/18/23 and then as directed thereafter. Discharge Orders: Discharge ED (Routine); Ordered 10/06/23 Ordered By: Mauricio Walsh Discharge Diet: Usual diet Discharge Activity: Increase activity as tolerated Patient Instructions: Dental Abscess (ED) Activity Restrictions/Additional Instructions: Use ice or heat to the face for discomfort. Use acetaminophen or ibuprofen for pain. Follow-up with primary care for further instructions. Return to ED for new concerns. Coding Level of Care Code ED Groundskeeper Supervisor for Poncho Chavez
== END 2023-10-06 16:54 | disposition home or self-care (01) ==
PROVIDERS: Emergency Provider Nurse Practitioner Family
DX: K04.7 Periapical abscess without sinus (principal); Z87.891 Personal history of nicotine dependence; Z86.19 Personal history of other infectious and parasitic diseases
CPT/HCPCS: 99281

== ENCOUNTER 2024-02-08 14:55 | Emergency (ER) | payer MEDICAID, SELFPAY ==
[2024-02-08 14:58] VITALS: BP 120/85; PULSE 89; RESP 14; TEMP 36.7; O2SAT 98
--- NOTE | 2024-02-08 15:00 | W.ED.BACK ---
HPI - Back Pain/Injury General: Chief Complaint: Back Pain/Injury Stated Complaint: right side lower back pain Time Seen by Provider: 02/08/24 14:58 Source: patient Mode of arrival: ambulatory History of Present Illness: 33-year-old male presents emergency room complaining of right-sided low back pain. He was lifting weights and felt a popping sensation in his right lower back. He said sharp low back pain and difficult time was standing and walking but has not had any bowel incontinence or urinary retention no saddle paresthesias. Pain radiating into the right lower extremity. He has had problems with his back in the past related injuries during activities such as skateboarding. MD elicited complaint: back pain Pertinent past history: prior back pain Onset (ago): day(s) Location: lumbar spine Exacerbating factors: none Relieving factors: none Associated symptoms: Deny abdominal pain, arthralgias, chills, change in bowel habits, difficulty walking, dysuria, fatigue, fecal incontinence, fever(s), hematuria, myalgias, nausea, numbness, syncope, tingling/numbness/burning, urinary frequency, urinary urgency, vomiting or weakness Work related injury: No Review of Systems Const: Denies: fever(s), chills or fatigue Card: Denies: chest pain or syncope Resp: Denies: dyspnea GI: Denies: abdominal pain, nausea, vomiting, fecal incontinence or change in bowel habits : Denies: dysuria, urinary frequency, urinary urgency or hematuria Musc: Denies: neck pain or back pain Skin/Breast: Denies: rash Neuro: Denies: difficulty walking PFSH ED PFSH: Medical History Psychiatric care History of substance abuse Hepatitis C infection s/p treatment, neg viral load Surgical History No history of previous surgery Family History Mother Cancer lymphoma Other Hypertension Denies family history of Diabetes CAD (coronary artery disease) Dementia Chronic kidney disease (CKD) Stroke Social History Quit status (tobacco/nicotine): has quit using Year quit tobacco: 2021 Alcohol intake: former Substance/Drug Use: former Date of last use: July 2022 Number of children: 2 service: No Current occupational status: employed Current occupation: warehouse Physical Exam Const: GENERAL APPEARANCE: cooperative and comfortable ORIENTATION/CONSCIOUSNESS: Yes awake, Yes oriented to person, Yes oriented to place and Yes oriented to time HENMT: COMMON NORMALS: normocephalic, atraumatic and hearing grossly normal bilaterally HEAD & SCALP: normocephalic and atraumatic Resp: COMMON NORMALS: normal respiratory effort, No retractions, No use of accessory muscles and clear to auscultation bilaterally AUSCULTATION: clear to auscultation bilaterally Cardio: COMMON NORMALS: regular rate, regular rhythm and No murmurs present (Cardio) RATE: regular rate RHYTHM: regular rhythm GI: COMMON NORMALS: Soft to palpation and No hepatosplenomegaly present AUSCULTATION: Yes normoactive bowel sounds PALPATION: Yes Soft to palpation, No Tenderness to palpation present (GI), No Guarding due to palpation present (GI) and Yes No hepatosplenomegaly present Extremity: COMMON NORMALS: normal to inspection, capillary refill normal, no clubbing, cyanosis or edema, no calf tenderness and no pedal edema Neuro: SENSORIUM/ORIENTATION: Yes oriented to person, Yes oriented to place and Yes oriented to time MOTOR EXAM: 5/5 motor strength present throughout DEEP TENDON REFLEXES: Right patellar reflex intensity grade: 2+ and Left patellar reflex intensity grade: 2+ OTHER: Sensation normal Skin: COMMON NORMALS: no rashes or lesions noted GENERAL SKIN EXAM: no rashes or lesions noted Course Vital Signs: Vital signs: Vital Signs Temperature 98.0 F 02/08/24 14:58 Pulse Rate 89 02/08/24 14:58 Respiratory Rate 14 02/08/24 14:58 Blood Pressure 120/85 02/08/24 14:58 Pulse Oximetry 98 02/08/24 14:58 Oxygen Delivery Me thod Room Air 02/08/24 14:58 MDM - Back Pain/Injury Medical Decision Making Mildly improved with medications given will discharge patient home on steroid taper as well as diclofenac and tizanidine. Medical Records I reviewed the patient's medical records. Labs I reviewed the patient's lab results. All radiology interpretation(s) finalized by discharge Discharge Plan Discharge Patient Disposition: Home Clinical Impression: Strain of lumbar region Condition: Stable Prescriptions: New tizanidine 4 mg tablet 4 mg PO Q6H PRN (Reason: muscle spasticity) Qty: 20 0RF Rx Instructions: do not exceed 3 doses per 24 hrs prednisone 20 mg tablet 20 mg PO TID Qty: 15 0RF Rx Instructions: 1 p.o. 3 times daily x3 days, 1 p.o. twice daily x2 days, 1 p.o. daily x2 days diclofenac sodium 75 mg tablet,delayed release (DR/EC) 75 mg PO Q12H PRN (Reason: pain) Qty: 20 0RF Discharge Orders: Discharge ED (Routine); Ordered 02/08/24 Ordered By: Shahbaz Bloom Discharge Diet: Usual diet Discharge Activity: Resume usual activity Patient Instructions: Opioid Safety, Pain Management Activity Restrictions/Additional Instructions: Thank you for choosing [facility] for your healthcare needs today. Please realize this is an emergency room and that we are providing you with a medical screening exam and this may not be complete and all inclusive of all the testing and or work up that you may need to determine your ailment or severity of your illness. It is very important that you follow up as instructed or that you return to the Emergency Department should you have concerns or if your condition changes or worsens in any way. You were seen today for back pain. Recommend using steroid taper anti-inflammatories as needed as well as muscle relaxers. Recheck with your primary care doctor if not improving Coding Level of Care Code ED Asset Recovery Specialist for Poncho Chavez
[2024-02-08] MEDS: orphenadrine 30 mg/mL Inj 2 mL 60 MG IM (15:10)
[2024-02-08] MEDS: ketorolac 60 mg/2 mL INJ IM (15:10)
[2024-02-08] MEDS: dexamethasone 10 mg/mL INJ IM (15:10)
[2024-02-08 16:44] LABS: Add Urine Microscopic? NO; Charge for UA Resulting for Rev
[2024-02-08 17:02] LABS: Bilirubin Urine Neg (Negative); Blood Urine Neg (Negative); Glucose Urine UA Norm (Normal); Ketones Urine Negative (Negative); Leukocyte Esterase Urine Negative (Negative); Nitrate Urine Negative (Negative); Protein Urine Neg (Negative); Specific Gravity, Urine 1.015 (1.005-1.030); Urine Appearance Clear (CLEAR); Urine Color Light yellow (Yellow); Urobilinogen Urine Norm (Negative); pH Urine 6 (5-7)
== END 2024-02-08 16:39 | disposition home or self-care (01) ==
PROVIDERS: Emergency Provider Family Medicine
DX: S39.012A Strain of muscle, fascia and tendon of lower back, initial encounter (principal); Z86.19 Personal history of other infectious and parasitic diseases; Z87.891 Personal history of nicotine dependence; X50.0XXA Overexertion from strenuous movement or load, initial encounter; Y93.B9 Activity, other involving muscle strengthening exercises
CPT/HCPCS: 81003; 96372; 99284; J1100; J1885; J2360

== ENCOUNTER 2024-04-08 17:32 | Emergency (ER) | payer MEDICAID, SELFPAY ==
[2024-04-08 17:45] VITALS: BP 125/77; PULSE 94; RESP 14; TEMP 36.4; O2SAT 99
--- NOTE | 2024-04-08 17:52 | W.ED.URI ---
HPI - URI/Sore Throat General: Chief Complaint: Upper Respiratory Infection Stated Complaint: sore on side of throat Time Seen by Provider: 04/08/24 17:49 History of Present Illness: 33-year-old male patient comes in today with sore throat x 2 days. Patient reports some difficulty with swallowing. Patient reports pain is mainly on the left side of the throat. Patient appears nontoxic. Patient has reported some chills but no reported fever. Patient is been taking ibuprofen for discomfort. Review of Systems General: Reports: 10 or more systems reviewed and unremarkable except in HPI and below PFSH ED PFSH: Medical History (Updated 04/08/24 @ 18:42 by SHANNAN Hua) History of substance abuse Hepatitis C infection s/p treatment, neg viral load Surgical History No history of previous surgery Family History Mother Cancer lymphoma Other Hypertension Denies family history of Diabetes CAD (coronary artery disease) Dementia Chronic kidney disease (CKD) Stroke Social History Quit status (tobacco/nicotine): has quit using Year quit tobacco: 2021 Alcohol intake: former Substance/Drug Use: former Date of last use: July 2022 Number of children: 2 service: No Current occupational status: employed Current occupation: [employer] Physical Exam Const: COMMON NORMALS: alert HENMT: COMMON NORMALS: normocephalic HEAD & SCALP: normocephalic THROAT: posterior oropharynx abnormal edema Neck/C-Spine: COMMON NORMALS: full ROM Resp: COMMON NORMALS: normal respiratory effort Cardio: COMMON NORMALS: regular rate RATE: regular rate Back/Pelvis: COMMON NORMALS: thoracic and lumbar spine normal to inspection Extremity: COMMON NORMALS: full ROM Neuro: SENSORIUM/ORIENTATION: Yes alert Skin: COMMON NORMALS: turgor normal GENERAL SKIN EXAM: turgor normal Course Vital Signs: Vital signs: Vital Signs Temperature 97.5 F L 04/08/24 17:45 Pulse Rate 94 04/08/24 17:45 Respiratory Rate 14 04/08/24 17:45 Blood Pressure 125/77 04/08/24 17:45 Pulse Oximetry 99 04/08/24 17:45 MDM - URI/Sore Throat Medical Decision Making 33-year-old male patient comes in today for for complaints of sore throat. Patient reports left-sided sore throat. Posterior pharynx is symmetrical with some mild erythema. Lungs are clear to auscultation. Patient manages secretions well. Voice is normal. Differential diagnosis includes upper respiratory infection, strep pharyngitis, retropharyngeal abscess. No signs of severe illness or injury is noted. Strep test was negative. Patient was given a dose of dexamethasone 10 mg for pharyngitis. Believe patient most likely has a viral syndrome. Recommended seat Aminofen and ibuprofen for pain and discomfort. Recommended throat lozenges or throat spray to help with pain. Patient reported understanding of care plan need for follow-up or return to the ER. Lab Data Laboratory Results Group A Strep Rapid Negative (Negative) 04/08/24 18:00 No radiology studies performed this visit Discharge Plan Discharge Patient Disposition: Home Clinical Impression: Upper respiratory infection Qualifiers: URI type: acute pharyngitis Condition: Stable Prescriptions: No Action tizanidine 4 mg tablet 4 mg PO Q6H PRN (Reason: muscle spasticity) Qty: 20 0RF Rx Instructions: do not exceed 3 doses per 24 hrs prednisone 20 mg tablet 20 mg PO TID Qty: 15 0RF Rx Instructions: 1 p.o. 3 times daily x3 days, 1 p.o. twice daily x2 days, 1 p.o. daily x2 days diclofenac sodium 75 mg tablet,delayed release (DR/EC) 75 mg PO Q12H PRN (Reason: pain) Qty: 20 0RF Discharge Orders: Discharge ED (Routine); Ordered 04/08/24 Ordered By: Mauricio Walsh Discharge Diet: Usual diet Discharge Activity: Increase activity as tolerated Patient Instructions: Pharyngitis (ED) Activity Restrictions/Additional Instructions: Home and rest. Drink plenty of water and fluids. Use acetaminophen ibuprofen for pain and discomfort. Most often pharyngitis resolves within 5 to 7 days. The use of Tylenol and ibuprofen can be helpful for the symptoms. Other relief of symptoms may be achieved through throat sprays and lozenges. Follow-up with primary care as needed. Return to ER for worsening symptoms such as inability to swallow, increased difficulty breathing, or blood in vomit or sputum. Coding Level of Care Code ED Transitional Care Liaison for Chg Fwd
[2024-04-08 18:21] LABS: Rapid Strep A Test Negative (Negative)
[2024-04-08] MEDS: HYDROcodone-acetaminophen 5-325 mg Tablet 1 TAB PO (18:55)
[2024-04-08] MEDS: dexamethasone 10 mg/mL INJ IM (18:55)
[2024-04-08 19:16] VITALS: BP 134/85; PULSE 84; RESP 17; O2SAT 96
== END 2024-04-08 19:15 | disposition home or self-care (01) ==
PROVIDERS: Emergency Provider Nurse Practitioner Family
DX: J02.9 Acute pharyngitis, unspecified (principal); Z87.891 Personal history of nicotine dependence; Z86.19 Personal history of other infectious and parasitic diseases
CPT/HCPCS: 87081; 87880; 96372; 99284; J1100

== ENCOUNTER 2024-07-20 22:16 | Emergency (ER) | payer MEDICAID, SELFPAY ==
[2024-07-20 23:12] VITALS: BP 124/72; PULSE 71; RESP 14; TEMP 36.7; O2SAT 95
[2024-07-21] MEDS: HYDROcodone-acetaminophen 5-325 mg Tablet 2 TAB PO (02:41)
[2024-07-21] MEDS: clindamycin 150 mg Capsule 300 MG PO (02:41)
[2024-07-21 02:43] VITALS: BP 134/79; PULSE 80; O2SAT 99
--- NOTE | 2024-07-21 18:57 | W.ED.DENTAL ---
HPI - Dental/Oral General: Chief complaint: Dental/Oral Stated complaint: Infection in His Mouth Time Seen by Provider: 07/21/24 02:25 History of Present Illness: This patient is a 33-year-old white male who presents to the ER complaining of left upper incisor pain and swelling for the past 2 days. No fever. Related Data Previous Rx's Medication Instructions Recorded diclofenac sodium 75 mg 75 mg PO Q12H PRN pain #20 tabs 02/08/24 tablet,delayed release prednisone 20 mg tablet 20 mg PO TID #15 tabs 02/08/24 tizanidine 4 mg tablet 4 mg PO Q6H PRN muscle spasticity 02/08/24 #20 tabs clindamycin HCl 300 mg capsule 300 mg PO Q6H 10 days #40 caps 07/21/24 tramadol 50 mg tablet 50 mg PO Q8H PRN pain #20 tabs 07/21/24 Allergies Allergy/AdvReac Type Severity Reaction Status Date / Time No Known Allergies Allergy Verified 07/20/24 23:15 Review of Systems General: Reports: 10 or more systems reviewed and unremarkable except in HPI and below ENMT: Reports: dental pain PFSH ED PFSH: Medical History (Updated 07/21/24 @ 02:30 by Luis Armando Barrett MD) History of substance abuse Hepatitis C infection s/p treatment, neg viral load Surgical History No history of previous surgery Family History Mother Cancer lymphoma Other Hypertension Denies family history of Diabetes CAD (coronary artery disease) Dementia Chronic kidney disease (CKD) Stroke Social History Quit status (tobacco/nicotine): has quit using Year quit tobacco: 2021 Alcohol intake: former Substance/Drug Use: former Date of last use: July 2022 Number of children: 2 service: No Current occupational status: employed Current occupation: warehouse Physical Exam Const: COMMON NORMALS: no acute distress, patient oriented x3 and no limitations GENERAL APPEARANCE: cooperative and comfortable HENMT: COMMON NORMALS: normocephalic, atraumatic, Normal nasal mucous membranes and turbinates present, moist oral mucous membranes and oropharynx normal HEAD & SCALP: normal to inspection, normocephalic and atraumatic FACE & SINUS: normal facial exam NOSE: Normal nasal mucous membranes and turbinates present TEETH & GINGIVA: Yes abnormal tooth and associated gingiva (Left upper incisor decayed with swelling of the gum.), Yes caries and Yes poor dentition Eye: COMMON NORMALS: Equal, round and reactive pupils present, EOMs intact bilaterally and conjunctivae normal GENERAL EYE: appearance normal, both eyes and all related structures CONJUNCTIVA: Yes conjunctivae normal PUPIL: Yes Equal, round and reactive pupils present Neck/C-Spine: COMMON NORMALS: supple and no JVD Chest: COMMONS NORMALS: normal inspection of the chest Resp: COMMON NORMALS: normal respiratory effort and clear to auscultation bilaterally AUSCULTATION: clear to auscultation bilaterally Cardio: COMMON NORMALS: no JVD, regular rate, regular rhythm, No gallops present (Cardio), No murmurs present (Cardio) and No rub (Cardio) RATE: regular rate RHYTHM: regular rhythm GI: COMMON NORMALS: Normal to inspection, nondistended, normoactive bowel sounds present, Soft to palpation and non-tender AUSCULTATION: Yes normoactive bowel sounds PALPATION: Yes Soft to palpation : COMMON NORMALS: Yes no CVA tenderness BLADDER/KIDNEY EXAM: Yes no CVA tenderness Back/Pelvis: COMMON NORMALS: no CVA tenderness and thoracic and lumbar spine normal to inspection Extremity: COMMON NORMALS: normal to inspection Neuro: COMMON NORMALS: patient oriented x3 and CN's II-XII intact bilaterally Psych: COMMON NORMALS: mental status grossly normal, Normal thought process present and cooperative THOUGHT PROCESS: Normal thought process present Skin: COMMON NORMALS: no rashes or lesions noted, turgor normal and no jaundice GENERAL SKIN EXAM: no rashes or lesions noted and turgor normal Course Vital Signs: Vital signs: Vital Signs Temperature 98.0 F 07/20/24 23:12 Pulse Rate 80 07/21/24 02:43 Respiratory Rate 14 07/20/24 23:12 Blood Pressure 134/79 07/21/24 02:43 Pulse Oximetry 99 07/21/24 02:43 Oxygen Delivery Me thod Room Air 07/20/24 23:12 MDM - Dental/Oral Medical Decision Making Patient was placed on clindamycin and hydrocodone and given his first doses in the emergency department. Recommended he follow-up with his dentist to soon as possible. He was discharged in stable condition. No radiology studies performed this visit Discharge Plan Discharge Patient Disposition: Home Clinical Impression: Dental abscess Condition: Stable Prescriptions: New tramadol 50 mg tablet 50 mg PO Q8H PRN (Reason: pain) Qty: 20 0RF clindamycin HCl 300 mg capsule 300 mg PO Q6H 10 Days Qty: 40 0RF No Action tizanidine 4 mg tablet 4 mg PO Q6H PRN (Reason: muscle spasticity) Qty: 20 0RF Rx Instructions: do not exceed 3 doses per 24 hrs prednisone 20 mg tablet 20 mg PO TID Qty: 15 0RF Rx Instructions: 1 p.o. 3 times daily x3 days, 1 p.o. twice daily x2 days, 1 p.o. daily x2 days diclofenac sodium 75 mg tablet,delayed release (DR/EC) 75 mg PO Q12H PRN (Reason: pain) Qty: 20 0RF Discharge Orders: Discharge ED (Routine); Ordered 07/21/24 Ordered By: Luis Armando Barrett Patient Instructions: Dental Abscess (ED), Opioid Safety, Pain Management Coding Level of Care Code ED Client Service Executive for Poncho Chavez
== END 2024-07-21 02:43 | disposition home or self-care (01) ==
PROVIDERS: Emergency Provider Emergency Medicine
DX: K04.7 Periapical abscess without sinus (principal); Z87.891 Personal history of nicotine dependence; Z86.19 Personal history of other infectious and parasitic diseases
CPT/HCPCS: 99283

== ENCOUNTER 2024-12-20 23:12 | Inpatient (IN) | payer MEDICAID, SELFPAY ==
[2024-12-20 23:13] VITALS: BP 135/93; PULSE 91; RESP 14; TEMP 36.3; O2SAT 97
--- NOTE | 2024-12-20 23:34 | ECG_ITS ---
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 Measurements Intervals [place] Rate: 85 P: 61 MI: 116 QRS: 91 QRSD: 94 T: 16 QT: 374 QTc: 445 Interpretive Statements SINUS RHYTHM WITH SHORT MI INTERVAL BORDERLINE RIGHT AXIS DEVIATION [QRS AXIS > 90] NONSPECIFIC T-WAVE ABNORMALITY Compared to ECG 02/07/2023 20:47:33 Short MI interval now present T-wave abnormality now present Electronically Signed On 12-22-2024 07:42:51 CDT by Efraín Barnhart M.D. [email or web address]
[2024-12-20 23:49] LABS: Bilirubin Urine Negative (Negative); Blood Urine Negative (Negative); Glucose Urine UA Negative (Normal); Ketones Urine 2+ (Negative); Leukocyte Esterase Urine Negative (Negative); Nitrate Urine Negative (Negative); Protein Urine Negative (Negative); Specific Gravity, Urine 1.022 (1.005-1.030); Urine Appearance Clear (CLEAR); Urine Color Yellow (Yellow); pH Urine 5.5 (5-7)
[2024-12-20 23:51] LABS: Add Urine Microscopic? YES; Bacteria Urine None Seen /hpf; Hyaline Casts Urine 0.81 /lpf; RBC Urine 0-2 /hpf (0-2); Squamous Epithelial Cell Urine 0-5 /hpf (0-5); WBC Urine 0-5 /hpf (0-5)
[2024-12-20 23:56] LABS: Amphetamines Screen Urine Negative (Negative); Barbiturates Screen Urine Negative (Negative); Benzodiazepines Screen Urine Negative (Negative); Cocaine Screen Urine Negative (Negative); Opiate Screen Urine Positive (Negative); PCP Screen Urine Negative (Negative); THC Screen Urine Positive (Negative)
[2024-12-21 00:19] LABS: Basophils % 0.3 %; Eosinophils # 0.1 10^3/uL (0.0-0.8); Eosinophils % 0.9 %; Hematocrit 45.4 % (37-53); Lymphocytes # 2.5 10^3/uL (0.8-4.8); Lymphocytes % 28.7 %; Mean Corpuscular HGB Conc 33.5 g/dL (30-55); Mean Corpuscular Hemoglobin 27.4 pg (27-33); Mean Corpuscular Volume 81.9 fl (82-101); Mean Platelet Volume 10.1 fL (7.4-10.4); Monocytes # 0.5 10^3/uL (0.2-0.9); Monocytes % 5.9 %; Neutrophils # 5.61 10^3/uL (1.8-7.7); Nucleated Red Blood Cells % 0 %; Platelet Count 318 10^3/cmm (157-399); Red Blood Count 5.54 10^6/uL (3.85-5.65); Red Cell Distribution Width 13.2 % (12.1-15.1); White Blood Count 8.78 10^3/uL (3.29-11.43)
[2024-12-21] MEDS: nicotine 21 mg Patch 1 PATCH TRANSDERMA (00:24)
[2024-12-21] MEDS: LORazepam 1 mg Tablet PO (00:24)
[2024-12-21] MEDS: ondansetron hcl ODT 4 mg Tab 8 MG PO (00:24)
[2024-12-21 00:33] LABS: Alanine Aminotransferase 20 U/L (0-41); Albumin Level 4.8 g/dL (3.5-5.2); Alkaline Phosphatase 74 U/L (40-130); Anion Gap 17.5 (5-19); Aspartate Amino Transferase 14 U/L (0-40); Blood Urea Nitrogen 10 mg/dL (6-20); Calcium 9.3 mg/dL (8.5-10.5); Carbon Dioxide 25 mmol/L (22-29); Chloride 99 mmol/L (98-107); Creatinine Clr Calc Pharmacy 98.8499; Globulin 3.3 g/dL (1.3-4.6); Glucose 94 mg/dL (65-115); Osmolality Calculated 285 mOsm/kg (285-295); Potassium 3.5 mmol/L (3.5-5.1); Salicylate 0.5 mg/dL (3-10); Sodium 138 mmol/L (136-145); Total Bilirubin 0.8 mg/dL (0.15-1.2); Total Protein 8.1 g/dL (6.6-8.7)
[2024-12-21 00:39] LABS: Acetaminophen < 5.0 ug/mL (10-30)
--- NOTE | 2024-12-21 02:43 | W.ED.PSYCHS ---
HPI - Psych General: Chief Complaint: Psychiatric Symptoms Stated Complaint: SI having problems detoxing Time Seen by Provider: 12/20/24 23:33 Source: patient Mode of arrival: ambulatory Limitations: no limitations History of Present Illness: Patient reports that he is on drugs pain pills kratom alcohol is his usual choice. He reports that if he keeps this up he is going to end up killing himself or he just may go ahead and kill himself as he has nothing else to live for. No active plan of overdosing just feels like if he does not get help that is what is next. No HI no AVH. Just currently feels very anxious nauseous and depressed MD complaint: suicidal ideation (Without plan) and feels depressed Related Data Previous Rx's ?Medication ?Instructions ?Recorded diclofenac sodium 75 mg 75 mg PO Q12H PRN pain #20 tabs 02/08/24 tablet,delayed release prednisone 20 mg tablet 20 mg PO TID #15 tabs 02/08/24 tizanidine 4 mg tablet 4 mg PO Q6H PRN muscle spasticity 02/08/24 #20 tabs tramadol 50 mg tablet 50 mg PO Q8H PRN pain #20 tabs 07/21/24 Allergies Allergy/AdvReac Type Severity Reaction Status Date / Time No Known Allergies Allergy Verified 12/20/24 23:21 Review of Systems General: Reports: 10 or more systems reviewed and unremarkable except in HPI and below PFSH ED PFSH: Medical History (Updated 07/29/24 @ 00:01 by RAGHU Caldera) History of substance abuse Hepatitis C infection s/p treatment, neg viral load Surgical History No history of previous surgery Family History Mother Cancer lymphoma Other Hypertension Denies family history of Diabetes CAD (coronary artery disease) Dementia Chronic kidney disease (CKD) Stroke Social History Quit status (tobacco/nicotine): has quit using Year quit tobacco: 2021 Alcohol intake: former Substance/Drug Use: former Date of last use: July 2022 Number of children: 2 service: No Current occupational status: employed Current occupation: warehouse Physical Exam Const: COMMON NORMALS: no acute distress, average body habitus, patient oriented x3, healthy appearing, alert and well nourished GENERAL APPEARANCE: well kempt and well developed HENMT: COMMON NORMALS: normocephalic, atraumatic, external ears normal and moist oral mucous membranes HEAD & SCALP: normocephalic and atraumatic EXTERNAL EAR: Yes external ears normal Eye: COMMON NORMALS: Equal, round and reactive pupils present, EOMs intact bilaterally and conjunctivae normal CONJUNCTIVA: Yes conjunctivae normal PUPIL: Yes Equal, round and reactive pupils present Neck/C-Spine: COMMON NORMALS: full ROM, no lymphadenopathy and supple Chest: CHEST: Yes Symmetrical chest wall rise and No Surgical scars present (Chest) Resp: COMMON NORMALS: normal respiratory effort, No retractions, No use of accessory muscles and clear to auscultation bilaterally AUSCULTATION: clear to auscultation bilaterally Cardio: COMMON NORMALS: regular rate, regular rhythm, S1 normal heart sound present, S2 normal heart sound present, No gallops present (Cardio), No clicks present (Cardio), No murmurs present (Cardio) and No rub (Cardio) RATE: regular rate RHYTHM: regular rhythm HEART SOUNDS: S1 normal heart sound present, S2 normal heart sound present and no murmurs PERIPHERAL PULSES: other (Radial pulses 2+ and symmetric) GI: COMMON NORMALS: Soft to palpation, non-tender and no masses INSPECTION: No abdominal distension PALPATION: Yes Soft to palpation, No Guarding due to palpation present (GI) and No Rebound tenderness present : COMMON NORMALS: Yes no CVA tenderness BLADDER/KIDNEY EXAM: Yes no CVA tenderness Back/Pelvis: COMMON NORMALS: no CVA tenderness Extremity: COMMON NORMALS: normal to inspection, full ROM, capillary refill normal and no clubbing, cyanosis or edema Neuro: COMMON NORMALS: patient oriented x3 SENSORIUM/ORIENTATION: Yes alert Psych: APPEARANCE: Yes well kempt Skin: COMMON NORMALS: no rashes or lesions noted, no wounds, turgor normal and no jaundice GENERAL SKIN EXAM: no rashes or lesions noted and turgor normal Course Vital Signs: Vital signs: Vital Signs Temperature 97.3 F L 12/20/24 23:13 Pulse Rate 91 12/20/24 23:13 Respiratory Rate 14 12/20/24 23:13 Blood Pressure 135/93 12/20/24 23:13 Pulse Oximetry 97 12/20/24 23:13 Oxygen Delivery Me thod Room Air 12/20/24 23:13 MDM - Psych Medical Decision Making Patient questing help with addiction, depression. Has had some suicidal thoughts but no active intention. Case discussed with psychiatry after medical clearance has been performed. Psychiatry is okay with admission. Dr. Barone is the accepting Medical Records I reviewed the patient's medical records. Lab Data I reviewed the patient's lab results. 12/21/24 00:00 12/21/24 00:00 Laboratory Results WBC 8.78 10^3/uL (3.29-11.43) 12/21/24 00:00 RBC 5.54 10^6/uL (3.85-5.65) 12/21/24 00:00 Hgb 15.20 g/dL (11.27-16.99) 12/21/24 00:00 Hct 45.4 % (37-53) 12/21/24 00:00 MCV 81.9 fl (82-101) L 12/21/24 00:00 MCH 27.4 pg (27-33) 12/21/24 00:00 MCHC 33.5 g/dL (30-55) 12/21/24 00:00 RDW 13.2 % (12.1-15.1) 12/21/24 00:00 Plt Count 318 10^3/cmm (157-399) 12/21/24 00:00 MPV 10.1 fL (7.4-10.4) 12/21/24 00:00 Neut % (Auto) 64.0 % 12/21/24 00:00 Lymph % (Auto) 28.7 % 12/21/24 00:00 [place] % (Auto) 5.9 % 12/21/24 00:00 Eos % (Auto) 0.9 % 12/21/24 00:00 Baso % (Auto) 0.3 % 12/21/24 00:00 Neut # (Auto) 5.61 10^3/uL (1.8-7.7) 12/21/24 00:00 Lymph # (Auto) 2.5 10^3/uL (0.8-4.8) 12/21/24 00:00 [place] # (Auto) 0.5 10^3/uL (0.2-0.9) 12/21/24 00:00 Eos # (Auto) 0.1 10^3/uL (0.0-0.8) 12/21/24 00:00 Baso # (Auto) 0.0 10^3/uL (0.0-0.1) 12/21/24 00:00 Nucleated RBC % (auto) 0 % 12/21/24 00:00 Nucleated RBCs # 0.0 /100WBC 12/21/24 00:00 Sodium 138 mmol/L (136-145) 12/21/24 00:00 Potassium 3.5 mmol/L (3.5-5.1) 12/21/24 00:00 Chloride 99 mmol/L (98-107) 12/21/24 00:00 Carbon Dioxide 25 mmol/L (22-29) 12/21/24 00:00 Anion Gap 17.5 (5-19) 12/21/24 00:00 BUN 10 mg/dL (6-20) 12/21/24 00:00 Creatinine 1.0 mg/dL (0.7-1.2) 12/21/24 00:00 GFR Calculation 85.0 mL/min (90-130) L 12/21/24 00:00 Glucose 94 mg/dL (65-115) 12/21/24 00:00 Calculated Osmolality 285 mOsm/kg (285-295) 12/21/24 00:00 Calcium 9.3 mg/dL (8.5-10.5) 12/21/24 00:00 Total Bilirubin 0.8 mg/dL (0.15-1.2) 12/21/24 00:00 AST 14 U/L (0-40) 12/21/24 00:00 ALT 20 U/L (0-41) 12/21/24 00:00 Alkaline Phosphatase 74 U/L (40-130) 12/21/24 00:00 Total Protein 8.1 g/dL (6.6-8.7) 12/21/24 00:00 Albumin 4.8 g/dL (3.5-5.2) 12/21/24 00:00 Globulin 3.3 g/dL (1.3-4.6) 12/21/24 00:00 Urine Color Yellow (Yellow) 12/20/24: Urine Appearance Clear (CLEAR) 12/20/24 Urine pH 5.5 (5-7) 12/20/24 Ur Specific [place] 1.022 (1.005-1.030) 12/20/24: Urine Protein Negative (Negative) 12/20/24: Urine Glucose (UA) Negative (Normal) 12/20/24: Urine Ketones 2+ (Negative) H 12/20/24: Urine Blood Negative (Negative) 12/20/24 Urine Nitrate Negative (Negative) 12/20/24: Urine Bilirubin Negative (Negative) 12/20/24 Urine Urobilinogen 1.0 mg/dL (Negative) 12/20/24 Ur Leukocyte Esterase Negative (Negative) 12/20/24: Urine RBC 0-2 /hpf (0-2) 12/20/24: Urine WBC 0-5 /hpf (0-5) 12/20/24 Ur Squamous Epith Cells 0-5 /hpf (0-5) 12/20/24 Amorphous Sediment Not Reportable 12/20/24 Urine Bacteria None seen /hpf (NONE) 12/20/24 Hyaline Casts 0.81 /lpf 12/20/24: Salicylates 0.5 mg/dL (3-10) L 12/21/24 00:00 Urine Opiates Screen Positive ng/mL (Negative) H 12/20/24: Acetaminophen < 5.0 ug/mL (10-30) L 12/21/24 00:00 Ur Barbiturates Screen Negative ng/mL (Negative) 12/20/24: Ur Phencyclidine Scrn Negative ng/mL (Negative) 12/20/24: Ur Amphetamines Screen Negative ng/mL (Negative) 12/20/24 U Benzodiazepines Scrn Negative ng/mL (Negative) 12/20/24 Urine Cocaine Screen Negative ng/mL (Negative) 12/20/24: U Marijuana (THC) Screen Positive ng/mL (Negative) H 12/20/24: No radiology studies performed this visit EKG Data EKG 1: I personally reviewed and interpreted this EKG as follows: EKG interpretation date: 12/20/24 EKG interpretation time: 23:34 Prior EKG tracings: not available for review Interpretation: Borderline axis deviation, sinus rhythm rate 85 QRS 94 QTc of 416. Discharge Plan Discharge Prescriptions: No Action tizanidine 4 mg tablet 4 mg PO Q6H PRN (Reason: muscle spasticity) Qty: 20 0RF Rx Instructions: do not exceed 3 doses per 24 hrs prednisone 20 mg tablet 20 mg PO TID Qty: 15 0RF Rx Instructions: 1 p.o. 3 times daily x3 days, 1 p.o. twice daily x2 days, 1 p.o. daily x2 days diclofenac sodium 75 mg tablet,delayed release (DR/EC) 75 mg PO Q12H PRN (Reason: pain) Qty: 20 0RF tramadol 50 mg tablet 50 mg PO Q8H PRN (Reason: pain) Qty: 20 0RF Print Language: Vincentian Coding Level of Care Code ED Clinical Phlebotomist for Poncho Chavez
[2024-12-21 02:51] VITALS: BP 119/80; PULSE 75; RESP 17; TEMP 36.5; O2SAT 96
[2024-12-21 03:46] LABS: Alcohol Level < 10 mg/dL (0-10)
--- NOTE | 2024-12-21 03:56 | PC.NURSE ---
PT WAS VERY COOPERATIVE DURING TIME IN THE ER. PT VERBALIZED THAT HE WAS NOT SI AT THIS TIME, BUT IF HE KEPT GOING LIKE IM GOING HE WAS GOING TO HURT HIMSELF. PT WAS VOLUNTARY AND WANTED TO GO TO NPU. PT STATES, I JUST WANNA GET SOBER.
[2024-12-21 03:58] VITALS: BP 146/88; PULSE 85; RESP 16; O2SAT 97
[2024-12-21] MEDS: hyDROXYzine 25 mg Capsule 50 MG PO (04:44)
[2024-12-21] MEDS: trazodone 50 mg Tablet PO (04:44)
[2024-12-21 05:48] VITALS: BP 119/80; PULSE 75; RESP 17; TEMP 36.5; O2SAT 96
[2024-12-21] MEDS: OLANZapine 5 mg ODT PO ×2 (08:37→20:59)
[2024-12-21] MEDS: nicotine 2 mg Gum BUCCAL (08:38)
--- NOTE | 2024-12-21 08:38 | PC.NURSE ---
Anxiety Patient anxious, reports that he is anxious and doesn't know why. Administered zyprexa 5mg ODT.
[2024-12-21 14:00] VITALS: BP 131/87; PULSE 95; TEMP 36.7; O2SAT 99
--- NOTE | 2024-12-21 18:08 | W.PM.NPUH&PS ---
Providers/Chief Complaint Admitting Physician: Rob Pierce MD Chief Complaint: SI having problems detoxing HPI NPU History of Present Illness Lew Barreto is a 34 year old male who presented to the emergency department with the following report: Chief Complaint: Psychiatric Symptoms Stated Complaint: SI having problems detoxing Time Seen by Provider: 12/20/24 23:33 Source: patient Mode of arrival: ambulatory Limitations: no limitations History of Present Illness: Patient reports that he is on drugs pain pills kratom alcohol is his usual choice. He reports that if he keeps this up he is going to end up killing himself or he just may go ahead and kill himself as he has nothing else to live for. No active plan of overdosing just feels like if he does not get help that is what is next. No HI no AVH. Just currently feels very anxious nauseous and depressed complaint: suicidal ideation (Without plan) and feels depressed. He was admitted to the neuropsychiatric unit for definitive treatment of those issues. He is known to [facility] through inpatient services and no consistent outpatient services. An excerpt of his January 2023 discharge summary is included below for context and the fact that there not been a lot of substantive changes. He presented today reporting that after he was discharged in January 2023 things went well that year. He reports that he was employed and sober for much of that year. He reports however that in 2023 he started slipping up from time to time and eventually did relapse. He reports that the cost of that relapse ended up being his job and that he has been unemployed for 5 months and that his addiction has been out of control. He reports that he knows he needs to get himself back on track and so he needed to get some treatment for his opiate addiction. He reports it has been 2 days since he used last and that as his withdrawal started getting more significant he started having negative thoughts and suicidal thoughts make him feel unsafe and so he returned to the hospital knowing that the last time he was here he was able to have success. We discussed the risks, benefits and alternatives of starting naltrexone after the is clear he is through the withdrawal process to avoid precipitated withdrawal and he understood and agreed to proceed as is documented in this note. We discussed the plan to move towards Vivitrol ultimately to give him the best chance for success. We discussed also considering medications for depression or anxiety over this stay. Per his 01/24/2023 [facility] inpatient psychiatric discharge summary: Diagnoses at Discharge Discharge Diagnosis (1) Acute psychosis: Status: Resolved (2) Suicidal ideation: Status: Resolved (3) Overdose: Status: Resolved (4) History of substance abuse: Status: Chronic (5) Hepatitis C infection: Status: Resolved Permanent problem details: s/p treatment, neg viral load Reason for Visit Reason for Visit: SUICIDAL IDEATIONS Brief History: History of Present Illness Lew Barreto is a 32 year old male to the emergency department with the following report: Chief Complaint: Psychiatric Symptoms Stated Complaint: SUICIDAL IDEATIONS Time Seen by Provider: 01/05/23 10:24 Limitations: other History of Present Illness: Mr Barreto is a 32-year-old gentleman with apparent history of substance abuse and hepatitis C per chart review presenting to the emergency department for psychiatric evaluation. The patient himself declines to answer any questions. Apparently last night or sometime this morning he told his mother that he wanted to kill himself. He possibly ingested 3 bottles of liquid Benadryl. He was brought to [facility] and at that time similarly did not participate in evaluation and was referred to the emergency department. He was admitted to the neuropsychiatric unit for definitive treatment of those issues. He presents today as a fairly limited historian. No spontaneous conversation and very limited responses to questions. When asked what brought him to the hospital. He perseverated multiple times seeming to mumble under his breath brought to the hospital. I had to once again cue him to try to get an answer which never came. Eventually I suggested that there was a report from his family that he was feeling suicidal. He made some gesture with his head but it was unclear whether that was a yes or no and he would not repeat that movement. He seemed to answer no to previously being in a psychiatric hospital by nodding. But then could later not give any response to other questions about previous psychiatric care. He did not answer questions in any appreciable way to questions about tobacco, alcohol marijuana or any other illicit drug use. He did not answer any questions related to current or past medications. He reportedly came with some kratom. There were concerns as stated above for an intentional overdose of Benadryl either as a suicide attempt or possibly as a mood altering substance. I was unable to elicit any other responses to questions during the interview. An excerpt of his in person crisis appointment from yesterday is included below for context and given his limited functioning as a historian. Per his 01/05/2023 [facility] outpatient crisis appointment: Primary problem of call:: Currently Suicidal Treatment Team:: Client is not in services with [facility] Is person in crisis currently taking any medications?: Unknown Does person in crisis currently use alcohol or drugs?: Unknown Does person in crisis have any known medical conditions?: Unknown Intervention: Contacted 911/Law Enforcement for Involuntary Long-Term/Active Rescue Final Disposition Supports Utilized:: Phone call to/dicussion of case with: (ER, [facility], 911, ambulance. ) Phone Call to/discussion of case with:: [facility] [facility] Personnel Actions taken narrative:: Lew Barreto presented to [facility] today with his mother Janice House and his grandmother Monique Mauro. Janice stated to the javascript front end developer that the client was suicidal. [facility] was contacted. [facility] called the client to come to the crisis office, he started to walk out the front doors. [facility] called the client's name several times before he seen where the staff was standing. Lew walked with [facility] to the crisis office. Janice stayed in the waiting room with the grandmother. [facility] asked Lew a question and he was unresponsive. He had his head hung low and seemed to be zoning out. He put his paperwork down and then laid his head in a sweatshirt. [facility] got his mother to see if he would respond to her and he would not. He ended up laying in an oversized chair in [facility] office. Janice reports that at 3am he told her that he wanted to kill himself. He did not say how he would kill himself. [facility] talked with Janice about him going to the ER; she agreed he must. Client Response to Intervention:: [facility] then called an ambulance to come to take him to the ER. He was not responsive to them and had to be carried out to the ambulance. Client's mother Janice reports that she found three bottles of Benadryl in the trash this morning. She also reports that he had odd behavior in the home. She said he stood in front of the washing machine for two hours saying that it is filling up with hot air. She reports that he talks about things that are not there. She reports he lost his job three days ago and has gone downhill since. Final Disposition:: [facility] and the client's mother Janice filled out [id number] paperwork. It was faxed to the ER and to the [facility]. [facility] called the ER and the courthouse. The ambulance and the police were at [facility], and the client was transported to the ER. Hospital Course He slowly acclimated to the individual, group and milieu therapies. He was initially near catatonic if not catatonic and not accepting of medication. Eventually he was placed on a 21-day hold and started taking the Invega which was switched over to to Invega Sustenna with the goal of getting to Invega Trinza and/or Invega Hafyera as he has significant resistance to being on medication but did identify that the medication led to improvement. He had significant improvement during the hospitalization. He worked with the social work team to establish appropriate follow-up services. He was able to contract for safety outside of the hospital prior to discharge. During the hospitalization, patient had routine laboratory studies which were within normal limits except for few outliers. Additionally there was a general medical evaluation which was also within normal limits and revealed no new acute processes. At the time of discharge, lethality was denied and psychosis was resolving. Mood and anxiety were well managed. Patient endorsed a plan to avoid all drugs of abuse and follow-up with the aftercare recommendations of the treatment team. Patient was evaluated and deemed to be absent credible lethality, and had achieved the maximum benefit from an inpatient hospitalization, so was discharged. Meds NPU Home Medications ?Medication ?Instructions ?Recorded ?Confirmed ?Last Taken ?Type No Known Home Medications 12/21/24 12/21/24 Unknown History Allergies Allergy/AdvReac Type Severity Reaction Status Date / Time No Known Allergies Allergy Verified 12/20/24 23:21 PFS NPU PFS: Medical History (Updated 12/21/24 @ 03:21 by RAGHU Caldera) History of substance abuse Hepatitis C infection s/p treatment, neg viral load Surgical History No history of previous surgery Family History Mother Cancer lymphoma Other Hypertension Denies family history of Diabetes CAD (coronary artery disease) Dementia Chronic kidney disease (CKD) Stroke Social History Quit status (tobacco/nicotine): has quit using Year quit tobacco: 2021 Alcohol intake: former Substance/Drug Use: former Date of last use: July 2022 Number of children: 2 service: No Current occupational status: employed Current occupation: [employer] Mental Status Exam MSE Comments: This is a well-nourished well-developed white male in hospital scrubs with limited grooming and adequate eye contact. Notable tattoos on exposed skin. No abnormal movements except for psychomotor retardation. Mostly cooperative with exam in mild to moderate distress. Speech was decreased rate and volume. Mood described as upset with myself and my situation, affect congruent. Thought process organized. Thought content: Patient endorsed having some suicidal thoughts leading to the hospitalization but reported not having any safety issues here in the hospital. He denied homicidal ideation, there were no delusions reported or noted, he denied auditory or visual hallucination. Attention, concentration and memory appeared intact, but none were formally tested. He appeared alert and oriented x 3. Insight, judgment and impulse control all appeared limited versus impaired. Vitals/I&O/Wt Last Vital Signs Temp 98.1 F 12/21/24 14:00 Pulse 95 12/21/24 14:00 Resp 17 12/21/24 05:48 BP 131/87 12/21/24 14:00 Pulse Ox 99 12/21/24 14:00 O2 Del Method Room Air 12/21/24 14:00 Weight last 48 hrs Weight 70.307 kg Data NPU 12/21/24 00:00 12/21/24 00:00 A&P Assessment and plan (1) Acute psychosis: (2) Suicidal ideation: (3) Overdose: (4) History of substance abuse: (5) Hepatitis C infection: Plan This is a 34-year-old white male with a long history of addiction and is known to this principal technical writer from a hospitalization almost 2 years ago presents reporting that he has relapsed and that that relapse has cost him a lot and that he needs to consider being back on medication but needs to get sober and get his life back on track. 1. Start naltrexone after another day or 2 of sobriety and his withdrawal has abated. Plan for Vivitrol in the future. We will consider clonidine, Seroquel, Vistaril and other medications to assist with opiate withdrawal syndrome. 2. Continue every 15 minute checks for safety. 3. Encourage individual, group and milieu therapies. 4. Encourage sober living treatment after discharge at the highest level of care to which he is willing to commit. PDMP PDMP Reviewed: Not Reviewed Involuntary Hold Information 96 Hour Hold: 96 Hour Involuntary Admission: Yes Attestations NPU Medical Necessity Statement*: Inpatient hospitalization is medically necessary and the clinically appropriate intervention at this time. We will monitor/initiate medications and make changes as indicated. He will be in the hospital for over 2 midnights. Likely length of stay 5-7 days. Coding Level of Care Code Acute Code for [facility] Fwd Diagnoses Acute psychosis F23 Suicidal ideation R45.851 Overdose T50.901A History of substance abuse F19.11 Hepatitis C infection B19.20
[2024-12-21 20:23] VITALS: BP 109/68; PULSE 97; RESP 17; TEMP 36.7; O2SAT 96
[2024-12-21] MEDS: ondansetron 4 MG Tablet PO (20:59)
[2024-12-21] MEDS: promethazine 25 mg/mL SDV 1 mL IM (21:49)
[2024-12-21] MEDS: LORazepam 2 mg/mL INJ 1 mL IM (22:51)
[2024-12-21] MEDS: haloperidol inj 5 mg/mL INJ 1 mL IM (22:51)
[2024-12-21] MEDS: diphenhydrAMINE 50 mg/mL SDV 1mL IM (22:52)
--- NOTE | 2024-12-21 22:52 | PC.NURSE ---
Patient has had severe nausea with active vomiting. M.D. notified ordered IM promethazine 25mg given. This appeared to be minimally effective. Patient began to become moderately agitated R/T frustration with N/V. Patient was give IM Haldol 5mg, IM ativan 2mg, and IM benadryl 50mg to ease agitation.
[2024-12-22] MEDS: promethazine 25 mg/mL SDV 1 mL IM ×2 (05:52→13:43)
[2024-12-22 06:00] VITALS: BP 121/65; PULSE 85; RESP 18; TEMP 37.2; O2SAT 95
[2024-12-22] MEDS: ondansetron 4 MG Tablet PO ×2 (09:10→19:18)
[2024-12-22] MEDS: hyDROXYzine 25 mg Capsule 50 MG PO ×2 (09:10→19:18)
[2024-12-22 14:00] VITALS: BP 125/72; PULSE 72; RESP 17; TEMP 37.2; O2SAT 93
--- NOTE | 2024-12-22 17:46 | PC.NURSE ---
Patient has had a couple bouts of emesis. Dr. Pierce was notified. Patient has been medicated with zofran and compazine.
--- NOTE | 2024-12-22 18:21 | P.NPUPN_ITS ---
Subjective NPU 2 Subjective: Patient presented today reporting that he is feeling really bad. We discussed the withdrawal timing for hydrocodone and that they 3 will probably be as worse today. We did discuss the risks, benefits and alternatives of adding clonidine, Seroquel, Lomotil for withdrawal symptoms. We continue to discussed a plan for initiation of naltrexone once he gets through the withdrawal and he understood and agreed to proceed as is documented in this note. He denies any side effects from current medications. Mental Status Exam 2 MSE Comments: This is a well-nourished well-developed white male in hospital scrubs with limited grooming and adequate eye contact. Notable tattoos on exposed skin. No abnormal movements except for psychomotor retardation. Mostly cooperative with exam in mild to moderate distress. Speech was decreased rate and volume. Mood described as upset with myself and my situation, affect congruent. Thought process organized. Thought content: Patient endorsed having some suicidal thoughts leading to the hospitalization but reported not having any safety issues here in the hospital. He denied homicidal ideation, there were no delusions reported or noted, he denied auditory or visual hallucination. Attention, concentration and memory appeared intact, but none were formally tested. He appeared alert and oriented x 3. Insight, judgment and impulse control all appeared limited versus impaired. Vitals/I&O/Wt Last Vital Signs Temp 99.5 F 12/22/24 20:25 Pulse 87 12/22/24 20:25 Resp 18 12/22/24 20:25 BP 128/81 12/22/24 20:25 Pulse Ox 100 12/22/24 20:25 O2 Del Method Room Air 12/22/24 20:25 Data NPU 12/21/24 00:00 12/21/24 00:00 A&P Assessment and plan (1) Acute psychosis: (2) Suicidal ideation: (3) Overdose: (4) History of substance abuse: (5) Hepatitis C infection: Plan This is a 34-year-old white male with a long history of addiction and is known to this typewriter assembly and parts inspector from a hospitalization almost 2 years ago presents reporting that he has relapsed and that that relapse has cost him a lot and that he needs to consider being back on medication but needs to get sober and get his life back on track. 1. Start naltrexone after another day or 2 of sobriety and his withdrawal has abated. Plan for Vivitrol in the future. Started clonidine, Seroquel, Vistaril and Lomotil to assist with opiate withdrawal syndrome. 2. Continue every 15 minute checks for safety. 3. Encourage individual, group and milieu therapies. 4. Encourage sober living treatment after discharge at the highest level of care to which he is willing to commit. PDMP PDMP Reviewed: Not Reviewed Involuntary Hold Information 2 96 Hour Hold: 96 Hour Involuntary Admission: Yes Attestations NPU 2 Medical Necessity Statement*: Inpatient hospitalization is medically necessary and the clinically appropriate intervention at this time. We will monitor/initiate medications and make changes as indicated. Likely length of stay 4-6 days. Coding Level of Care Code Acute Code for [facility] Fwd Diagnoses Acute psychosis F23 Suicidal ideation R45.851 Overdose T50.901A History of substance abuse F19.11 Hepatitis C infection B19.20
[2024-12-22] MEDS: trazodone 50 mg Tablet PO (19:18)
[2024-12-22] MEDS: quetiapine 25 mg Tablet 50 MG PO (19:33)
[2024-12-22 20:25] VITALS: BP 128/81; PULSE 87; RESP 18; TEMP 37.5; O2SAT 100
[2024-12-23] MEDS: ondansetron 4 MG Tablet PO ×4 (00:14→20:10)
[2024-12-23] MEDS: trazodone 50 mg Tablet PO ×2 (00:14→01:51)
[2024-12-23] MEDS: hyDROXYzine 25 mg Capsule 50 MG PO ×2 (00:14→09:43)
[2024-12-23] MEDS: promethazine 25 mg/mL SDV 1 mL IM ×3 (01:51→17:13)
[2024-12-23 06:00] VITALS: BP 129/85; PULSE 80; RESP 18; TEMP 36.7; O2SAT 98
--- NOTE | 2024-12-23 07:06 | P.NPUPN_ITS ---
Subjective NPU 2 Subjective: Patient presented today reporting that he continues to struggle with the withdrawal syndrome from opiates and having emesis and some diarrhea. We continue to recommend the as needed medications including clonidine, Lomotil and Seroquel. He reports that he was confused and he thought that the clonidine was the naltrexone and he was afraid that if he took it he was going to feel worse like we described could happen if we started the naltrexone too early. We once again reviewed the medication and the role that naltrexone versus Vivitrol could have an assisting him in his recovery but the clonidine and the other medications were for the constitutional symptoms that come with opiate withdrawal. Mental Status Exam 2 MSE Comments: This is a well-nourished well-developed white male in hospital scrubs with limited grooming and adequate eye contact. Notable tattoos on exposed skin. No abnormal movements except for psychomotor retardation. Mostly cooperative with exam in mild to moderate distress. Speech was decreased rate and volume. Mood described as upset with myself and my situation, affect congruent. Thought process organized. Thought content: Patient endorsed having some suicidal thoughts leading to the hospitalization but reported not having any safety issues here in the hospital. He denied homicidal ideation, there were no delusions reported or noted, he denied auditory or visual hallucination. Attention, concentration and memory appeared intact, but none were formally tested. He appeared alert and oriented x 3. Insight, judgment and impulse control all appeared limited versus impaired. Vitals/I&O/Wt Last Vital Signs Temp 98.0 F 12/23/24 06:00 Pulse 80 12/23/24 06:00 Resp 18 12/23/24 06:00 BP 129/85 12/23/24 06:00 Pulse Ox 98 12/23/24 06:00 O2 Del Method Room Air 12/23/24 06:00 Data NPU 12/21/24 00:00 12/21/24 00:00 A&P Assessment and plan (1) Depression: (2) Acute anxiety: (3) Polysubstance dependence including opioid type drug without complication, episodic abuse: (4) Suicidal ideation: (5) Acute psychosis: (6) Suicidal ideation: (7) Overdose: (8) History of substance abuse: (9) Hepatitis C infection: Plan This is a 34-year-old white male with a long history of addiction and is known to this health underwriter from a hospitalization almost 2 years ago presents reporting that he has relapsed and that that relapse has cost him a lot and that he needs to consider being back on medication but needs to get sober and get his life back on track. 1. Start naltrexone after another day or 2 of sobriety and his withdrawal has abated. Plan for Vivitrol in the future. Started clonidine, Seroquel, Vistaril and Lomotil to assist with opiate withdrawal syndrome. 2. Continue every 15 minute checks for safety. 3. Encourage individual, group and milieu therapies. 4. Encourage sober living treatment after discharge at the highest level of care to which he is willing to commit. PDMP PDMP Reviewed: Not Reviewed Involuntary Hold Information 2 96 Hour Hold: 96 Hour Involuntary Admission: Yes Attestations NPU 2 Medical Necessity Statement*: Inpatient hospitalization is medically necessary and the clinically appropriate intervention at this time. We will monitor/initiate medications and make changes as indicated. Likely length of stay 3-5 days. Coding Level of Care Code Acute Code for [facility] Fwd Diagnoses Depression F32.A Acute anxiety F41.9 Polysubstance dependence including opioid type drug without complication, episodic abuse F19.20 Suicidal ideation R45.851 Acute psychosis F23 Overdose T50.901A History of substance abuse F19.11 Hepatitis C infection B19.20
[2024-12-23 14:00] VITALS: BP 135/99; PULSE 92; RESP 18; O2SAT 97
[2024-12-23 20:05] VITALS: BP 124/87; PULSE 124; RESP 18; TEMP 36.4; O2SAT 96
[2024-12-23] MEDS: quetiapine 25 mg Tablet 50 MG PO (20:09)
[2024-12-23] MEDS: quetiapine 25 mg Tablet PO (23:19)
[2024-12-24] MEDS: promethazine 25 mg/mL SDV 1 mL IM ×2 (03:13→09:54)
[2024-12-24] MEDS: calcium carbonate 500 mg Chew Tablet 1000 MG PO (04:23)
[2024-12-24 06:00] VITALS: BP 121/76; PULSE 88; RESP 18; TEMP 36.6; O2SAT 100
[2024-12-24] MEDS: ondansetron 4 MG Tablet PO ×2 (07:43→15:46)
[2024-12-24] MEDS: cloNIDine 0.1 mg Tablet PO ×3 (10:46→21:31)
[2024-12-24] MEDS: quetiapine 25 mg Tablet PO ×2 (10:46→16:44)
[2024-12-24 14:00] VITALS: BP 113/74; PULSE 80; RESP 18; TEMP 37.4; O2SAT 99
[2024-12-24 15:22] VITALS: BP 113/74
[2024-12-24] MEDS: hyDROXYzine 25 mg Capsule 50 MG PO (15:22)
--- NOTE | 2024-12-24 18:22 | P.NPUPN_ITS ---
Subjective NPU 2 Subjective: Patient presented today reporting that he is doing okay. He reports he is feeling a tiny bit better and he has been taking some of the as needed medications like clonidine, Vistaril and Seroquel. He reports the last emesis today and continuing to be focused on getting through the withdrawal before spacing the next steps of his recovery. He denied any side effects to the medication at this time. Mental Status Exam 2 MSE Comments: This is a well-nourished well-developed white male in hospital scrubs with limited grooming and adequate eye contact. Notable tattoos on exposed skin. No abnormal movements except for psychomotor retardation. Mostly cooperative with exam in mild to moderate distress. Speech was decreased rate and volume. Mood described as upset with myself and my situation, affect congruent. Thought process organized. Thought content: Patient endorsed having some suicidal thoughts leading to the hospitalization but reported not having any safety issues here in the hospital. He denied homicidal ideation, there were no delusions reported or noted, he denied auditory or visual hallucination. Attention, concentration and memory appeared intact, but none were formally tested. He appeared alert and oriented x 3. Insight, judgment and impulse control all appeared limited versus impaired. Vitals/I&O/Wt Last Vital Signs Temp 99.4 F 12/24/24 14:00 Pulse 80 12/24/24 14:00 Resp 18 12/24/24 14:00 BP 113/74 12/24/24 15:22 Pulse Ox 99 12/24/24 14:00 O2 Del Method Room Air 12/24/24 06:00 Data NPU 12/21/24 00:00 12/21/24 00:00 A&P Assessment and plan (1) Depression: (2) Acute anxiety: (3) Polysubstance dependence including opioid type drug without complication, episodic abuse: (4) Suicidal ideation: (5) Acute psychosis: (6) Suicidal ideation: (7) Overdose: (8) History of substance abuse: (9) Hepatitis C infection: Plan This is a 34-year-old white male with a long history of addiction and is known to this advertising writer from a hospitalization almost 2 years ago presents reporting that he has relapsed and that that relapse has cost him a lot and that he needs to consider being back on medication but needs to get sober and get his life back on track. 1. Start naltrexone after another day or 2 of sobriety and his withdrawal has abated. Plan for Vivitrol in the future. Started clonidine, Seroquel, Vistaril and Lomotil to assist with opiate withdrawal syndrome. 2. Continue every 15 minute checks for safety. 3. Encourage individual, group and milieu therapies. 4. Encourage sober living treatment after discharge at the highest level of care to which he is willing to commit. PDMP PDMP Reviewed: Not Reviewed Involuntary Hold Information 2 96 Hour Hold: 96 Hour Involuntary Admission: Yes Attestations NPU 2 Medical Necessity Statement*: Inpatient hospitalization is medically necessary and the clinically appropriate intervention at this time. We will monitor/initiate medications and make changes as indicated. Likely length of stay 2-4 days. Coding Level of Care Code Acute Code for [facility] Fwd Diagnoses Depression F32.A Acute anxiety F41.9 Polysubstance dependence including opioid type drug without complication, episodic abuse F19.20 Suicidal ideation R45.851 Acute psychosis F23 Overdose T50.901A History of substance abuse F19.11 Hepatitis C infection B19.20
[2024-12-24 19:54] VITALS: BP 113/74; PULSE 87; RESP 18; TEMP 37.4; O2SAT 100
[2024-12-24 21:31] VITALS: BP 113/74
[2024-12-24] MEDS: quetiapine 25 mg Tablet 50 MG PO (21:33)
[2024-12-25] VITALS (7 sets, daily range): BP systolic 97–128; BP diastolic 66–74; PULSE 79–93; RESP 17–18; TEMP 36.8–36.9; O2SAT 96–99
[2024-12-25] MEDS: ondansetron 4 MG Tablet PO ×4 (02:29→22:40)
[2024-12-25] MEDS: quetiapine 25 mg Tablet PO ×3 (06:36→18:26)
[2024-12-25] MEDS: cloNIDine 0.1 mg Tablet PO ×4 (06:36→22:39)
--- NOTE | 2024-12-25 16:10 | P.NPUPN_ITS ---
Subjective NPU 2 Subjective: Patient presented today reporting that he is doing a little better. He reports his physical symptoms are starting to wyatt. He continues to have limited insight into what it might take to get sober per staff reports and direct observation. We continue to discussed the importance of him having some sober living commitment to maintain his sobriety. He has a very masculine approach to his plan which is to hopefully return to work soon and we discussed that the work that he does is often surrounded with people struggling with addiction. We agreed we would talk again about possible discharge plans tomorrow. He denied any side effects to the medication. Mental Status Exam 2 MSE Comments: This is a well-nourished well-developed white male in hospital scrubs with limited grooming and adequate eye contact. Notable tattoos on exposed skin. No abnormal movements except for psychomotor retardation. Mostly cooperative with exam in mild distress. Speech was decreased rate and volume. Mood described as maybe a little better, affect congruent. Thought process organized. Thought content: Patient endorsed having some suicidal thoughts leading to the hospitalization but denied current suicidal or homicidal ideation, there were no delusions reported or noted, he denied auditory or visual hallucination. Attention, concentration and memory appeared intact, but none were formally tested. He appeared alert and oriented x 3. Insight, judgment and impulse control all appeared limited versus impaired. Vitals/I&O/Wt Last Vital Signs Temp 98.4 F 12/25/24 06:00 Pulse 86 12/25/24 06:00 Resp 18 12/25/24 06:00 BP 113/70 12/25/24 14:19 Pulse Ox 99 12/25/24 06:00 O2 Del Method Room Air 12/25/24 06:00 Data NPU 12/25/24 19:50 12/25/24 19:50 A&P Assessment and plan (1) Depression: (2) Acute anxiety: (3) Polysubstance dependence including opioid type drug without complication, episodic abuse: (4) Suicidal ideation: (5) Acute psychosis: (6) Suicidal ideation: (7) Overdose: (8) History of substance abuse: (9) Hepatitis C infection: Plan This is a 34-year-old white male with a long history of addiction and is known to this typewriters functional tester from a hospitalization almost 2 years ago presents reporting that he has relapsed and that that relapse has cost him a lot and that he needs to consider being back on medication but needs to get sober and get his life back on track. 1. Start naltrexone after another day or 2 of sobriety and his withdrawal has abated. Plan for Vivitrol in the future. Started clonidine, Seroquel, Vistaril and Lomotil to assist with opiate withdrawal syndrome. 2. Continue every 15 minute checks for safety. 3. Encourage individual, group and milieu therapies. 4. Encourage sober living treatment after discharge at the highest level of care to which he is willing to commit. PDMP PDMP Reviewed: Not Reviewed Involuntary Hold Information 2 96 Hour Hold: 96 Hour Involuntary Admission: Yes Attestations NPU 2 Medical Necessity Statement*: Inpatient hospitalization is medically necessary and the clinically appropriate intervention at this time. We will monitor/initiate medications and make changes as indicated. Likely length of stay 1-3 days. Coding Level of Care Code Acute Code for [facility] Fwd Diagnoses Depression F32.A Acute anxiety F41.9 Polysubstance dependence including opioid type drug without complication, episodic abuse F19.20 Suicidal ideation R45.851 Acute psychosis F23 Overdose T50.901A History of substance abuse F19.11 Hepatitis C infection B19.20
--- NOTE | 2024-12-25 18:39 | PC.NURSE ---
ADMINISTERED CLONIDINE AND SEROQUEL FOR WITHDRAWAL SYMPTOMS. PATIENT PREFERS THESE MEDICATIONS TO BE ADMINISTERED SIMULTANEOUSLY FOR OPTIMAL RESULTS. PATIENT STILL EXPERIENCING BOUTS OF NAUSEA.
[2024-12-25 19:59] LABS: Basophils % 0.3 %; Eosinophils % 0.2 %; Lymphocytes # 2.6 10^3/uL (0.8-4.8); Lymphocytes % 20.4 %; Mean Corpuscular HGB Conc 33.8 g/dL (30-55); Mean Corpuscular Hemoglobin 27.5 pg (27-33); Mean Corpuscular Volume 81.4 fl (82-101); Mean Platelet Volume 9.8 fL (7.4-10.4); Monocytes # 1.4 10^3/uL (0.2-0.9); Monocytes % 11.3 %; Neutrophils # 8.46 10^3/uL (1.8-7.7); Neutrophils % 67.3 %; Nucleated Red Blood Cells % 0 %; Platelet Count 325 10^3/cmm (157-399); White Blood Count 12.57 10^3/uL (3.29-11.43)
[2024-12-25 20:16] LABS: Anion Gap 17.2 (5-19); Blood Urea Nitrogen 36 mg/dL (6-20); Calcium 9.6 mg/dL (8.5-10.5); Carbon Dioxide 35 mmol/L (22-29); Chloride 86 mmol/L (98-107); Creatinine Clr Calc Pharmacy 82.3749; Glomerular Filtration Rate 68.9 mL/min (90-130); Glucose 106 mg/dL (65-115); Osmolality Calculated 287 mOsm/kg (285-295); Potassium 4.2 mmol/L (3.5-5.1); Sodium 134 mmol/L (136-145)
[2024-12-25] MEDS: quetiapine 25 mg Tablet 50 MG PO (21:27)
[2024-12-26 05:50] VITALS: BP 111/82
[2024-12-26] MEDS: quetiapine 25 mg Tablet PO ×2 (05:50→12:14)
[2024-12-26] MEDS: cloNIDine 0.1 mg Tablet PO ×3 (05:50→21:01)
[2024-12-26] MEDS: ondansetron 4 MG Tablet PO ×2 (05:50→21:01)
[2024-12-26 06:00] VITALS: BP 111/82; PULSE 109; RESP 17; TEMP 36.4; O2SAT 96
[2024-12-26 12:14] VITALS: BP 113/81
--- NOTE | 2024-12-26 13:43 | P.NPUPN_ITS ---
Subjective NPU 2 Subjective: Patient presented today reporting he is still having significant emesis. Laboratory studies show some elevated white count. We discussed the possibility that this represented either complicated withdrawal from the kratom or even hyperemesis from his marijuana use or a combination thereof. He denied using anything from the standpoint of opioid use other than hydrocodone and so we discussed the likelihood that this emesis is continuing from his opiate withdrawal is low. We discussed the likelihood of getting a hospitalist consult in the morning. He denied any side effects to the medication. Mental Status Exam 2 MSE Comments: This is a well-nourished well-developed white male in hospital scrubs with limited grooming and adequate eye contact. Notable tattoos on exposed skin. No abnormal movements except for psychomotor retardation. Mostly cooperative with exam in mild distress. Speech was decreased rate and volume. Mood described as maybe a little better, affect congruent. Thought process organized. Thought content: Patient endorsed having some suicidal thoughts leading to the hospitalization but denied current suicidal or homicidal ideation, there were no delusions reported or noted, he denied auditory or visual hallucination. Attention, concentration and memory appeared intact, but none were formally tested. He appeared alert and oriented x 3. Insight, judgment and impulse control all appeared limited versus impaired. Vitals/I&O/Wt Last Vital Signs Temp 97.6 F 12/26/24 06:00 Pulse 109 H 12/26/24 06:00 Resp 17 12/26/24 06:00 BP 113/81 12/26/24 12:14 Pulse Ox 96 12/26/24 06:00 O2 Del Method Room Air 12/26/24 06:00 Data NPU 12/25/24 19:50 12/25/24 19:50 A&P Assessment and plan (1) Depression: (2) Acute anxiety: (3) Polysubstance dependence including opioid type drug without complication, episodic abuse: (4) Suicidal ideation: (5) Acute psychosis: (6) Suicidal ideation: (7) Overdose: (8) History of substance abuse: (9) Hepatitis C infection: Plan This is a 34-year-old white male with a long history of addiction and is known to this marketing writer from a hospitalization almost 2 years ago presents reporting that he has relapsed and that that relapse has cost him a lot and that he needs to consider being back on medication but needs to get sober and get his life back on track. 1. Start naltrexone after another day or 2 of sobriety and his withdrawal has abated. Plan for Vivitrol in the future. Started clonidine, Seroquel, Vistaril and Lomotil to assist with opiate withdrawal syndrome. 2. Continue every 15 minute checks for safety. 3. Encourage individual, group and milieu therapies. 4. Encourage sober living treatment after discharge at the highest level of care to which he is willing to commit. PDMP PDMP Reviewed: Not Reviewed Involuntary Hold Information 2 Hold Status: Date/Time Hold Expires: VOLUNTARY 96 Hour Hold: 96 Hour Involuntary Admission: Yes Attestations NPU 2 Medical Necessity Statement*: Inpatient hospitalization is medically necessary and the clinically appropriate intervention at this time. We will monitor/initiate medications and make changes as indicated. Likely length of stay 1-3 days. Coding Level of Care Code Acute Code for [facility] Fwd Diagnoses Depression F32.A Acute anxiety F41.9 Polysubstance dependence including opioid type drug without complication, episodic abuse F19.20 Suicidal ideation R45.851 Acute psychosis F23 Overdose T50.901A History of substance abuse F19.11 Hepatitis C infection B19.20
[2024-12-26 14:00] VITALS: BP 103/67; PULSE 70; RESP 17; TEMP 37.2; O2SAT 99
[2024-12-26 19:49] VITALS: BP 135/74; PULSE 79; RESP 17; TEMP 37.3; O2SAT 99
[2024-12-26 21:01] VITALS: BP 135/74
[2024-12-26] MEDS: quetiapine 25 mg Tablet 50 MG PO (21:01)
[2024-12-27] VITALS (7 sets, daily range): BP systolic 90–135; BP diastolic 60–90; PULSE 75–92; RESP 16–17; TEMP 36.8–37.3; O2SAT 98–100
[2024-12-27] MEDS: cloNIDine 0.1 mg Tablet PO ×4 (05:09→22:00)
[2024-12-27] MEDS: ondansetron 4 MG Tablet PO ×4 (05:10→21:55)
[2024-12-27] MEDS: quetiapine 25 mg Tablet PO ×3 (05:14→17:30)
--- NOTE | 2024-12-27 09:09 | PC.NURSE ---
IN BED RESTING, STATES I'M STILL NOT ABLE TO EAT ANYTHING BECAUSE MY WITHDRAWS. PT WAS ADMITTED ON THE AND CONTINUES TO REPORT NAUSEA. JEANFRAN OFFERED BUT PT STATES HE WANTS TO WAIT UNTIL HE CAN TAKE ALL MY MEDS WITH THE SEROQUEL BECAUSE THEY WORK BETTER THAT WAY AND THEN I CAN EAT. SEROQUEL IS NOT DUE UNTIL 1114 THIS MORNING. DENIES SI/HI AND AVH AT THIS TIME. RATES ANXIETY AND DEPRESSION 05/12. PT CONTINUES TO WITHDRAW TO ROOM AND REST IN BED. SUPPORT VOICED.
--- NOTE | 2024-12-27 11:20 | PC.NURSE ---
NEW ORDERS RECEIVED FROM DR GRIER TO HAVE LAB COLLECT A CBC AND BMP DUE TO HYPER EMESIS AND ELEVATED WBC ON THE .
[2024-12-27 12:56] LABS: Hematocrit 46.7 % (37-53); Mean Corpuscular Hemoglobin 27.6 pg (27-33); Mean Corpuscular Volume 81.1 fl (82-101); Mean Platelet Volume 11.2 fL (7.4-10.4); Platelet Count 299 10^3/cmm (157-399); Red Blood Count 5.76 10^6/uL (3.85-5.65); Red Cell Distribution Width 12.5 % (12.1-15.1); White Blood Count 8.96 10^3/uL (3.29-11.43)
[2024-12-27 13:30] LABS: Total Cells Counted 100 (0-100)
[2024-12-27 13:33] LABS: Absolute Neutrophil 5.5 10^3/cmm (1.4-6.5); Absolute Segmented Neutrophil 5.4 10/cmm (1.6-7.1); Band Neutrophils Absolute 0.1 10^3/cmm (0.0-1.2); Eosinophils 0 %; Lymphocytes 28 %; Lymphocytes Absolute 2.6 10^3/cmm (1.2-3.4); Monocytes Absolute 0.9 10^3/cmm (0.1-0.6); Platelet Estimate Normal (Normal); Segmented Neutrophils 60 %
[2024-12-27 13:36] LABS: Anion Gap 17.7 (5-19); Blood Urea Nitrogen 27 mg/dL (6-20); Calcium 9.3 mg/dL (8.5-10.5); Carbon Dioxide 28 mmol/L (22-29); Chloride 88 mmol/L (98-107); Creatinine Clr Calc Pharmacy 98.8499; Glucose 105 mg/dL (65-115); Osmolality Calculated 275 mOsm/kg (285-295); Potassium 3.7 mmol/L (3.5-5.1); Sodium 130 mmol/L (136-145)
--- NOTE | 2024-12-27 17:57 | W.PM.NPUPNS ---
Subjective NPU Subjective: Patient presented today reporting that he is still feeling similarly. Less emesis but still having some difficulty keeping things down and still having the same feeling. We endorsed getting labs in the morning and having a medical consult likely. He denied any side effects to the medication. Mental Status Exam MSE Comments: This is a well-nourished well-developed white male in hospital scrubs with limited grooming and adequate eye contact. Notable tattoos on exposed skin. No abnormal movements except for psychomotor retardation. Mostly cooperative with exam in mild distress. Speech was decreased rate and volume. Mood described as maybe a little better, affect congruent. Thought process organized. Thought content: Patient endorsed having some suicidal thoughts leading to the hospitalization but denied current suicidal or homicidal ideation, there were no delusions reported or noted, he denied auditory or visual hallucination. Attention, concentration and memory appeared intact, but none were formally tested. He appeared alert and oriented x 3. Insight, judgment and impulse control all appeared limited versus impaired. Vitals/I&O/Wt Last Vital Signs Temp 98.3 F 12/27/24 14:00 Pulse 75 12/27/24 14:00 Resp 17 12/27/24 14:00 BP 104/62 12/27/24 17:29 Pulse Ox 98 12/27/24 14:00 O2 Del Method Room Air 12/27/24 06:00 Data NPU 12/27/24 12:46 12/27/24 12:46 A&P Assessment and plan (1) Depression: (2) Acute anxiety: (3) Polysubstance dependence including opioid type drug without complication, episodic abuse: (4) Suicidal ideation: (5) Acute psychosis: (6) Suicidal ideation: (7) Overdose: (8) History of substance abuse: (9) Hepatitis C infection: Plan This is a 34-year-old white male with a long history of addiction and is known to this automobile service writer from a hospitalization almost 2 years ago presents reporting that he has relapsed and that that relapse has cost him a lot and that he needs to consider being back on medication but needs to get sober and get his life back on track. 1. Start naltrexone after another day or 2 of sobriety and his withdrawal has abated. Plan for Vivitrol in the future. Started clonidine, Seroquel, Vistaril and Lomotil to assist with opiate withdrawal syndrome. 2. Continue every 15 minute checks for safety. 3. Encourage individual, group and milieu therapies. 4. Encourage sober living treatment after discharge at the highest level of care to which he is willing to commit. PDMP PDMP Reviewed: Not Reviewed Involuntary Hold Information Hold Status: Date/Time Hold Expires: VOLUNTARY 96 Hour Hold: 96 Hour Involuntary Admission: Yes Attestations NPU Medical Necessity Statement*: Inpatient hospitalization is medically necessary and the clinically appropriate intervention at this time. We will monitor/initiate medications and make changes as indicated. Likely length of stay 1-3 days. Coding Level of Care Code Acute Code for [facility] Fwd Diagnoses Depression F32.A Acute anxiety F41.9 Polysubstance dependence including opioid type drug without complication, episodic abuse F19.20 Suicidal ideation R45.851 Acute psychosis F23 Overdose T50.901A History of substance abuse F19.11 Hepatitis C infection B19.20
[2024-12-27] MEDS: quetiapine 25 mg Tablet 50 MG PO (21:54)
[2024-12-28 05:06] VITALS: BP 110/80
[2024-12-28] MEDS: quetiapine 25 mg Tablet PO ×2 (05:06→12:04)
[2024-12-28] MEDS: cloNIDine 0.1 mg Tablet PO ×2 (05:06→12:04)
[2024-12-28] MEDS: ondansetron 4 MG Tablet PO ×2 (05:06→12:04)
[2024-12-28 06:00] VITALS: BP 89/59; PULSE 76; RESP 17; TEMP 36.8; O2SAT 99
--- NOTE | 2024-12-28 09:05 | PC.NURSE ---
Pt resting in bed with eyes closed and blankets over head. States that he is having all over abd pain, states that it is gas like pain and like he is going to have diarrhea. He rates his anxiety and depression 0/10. His pain is a 7/10 and declines any interventions for the pain. States that he did not sleep well last night. Denies SI/HI. He is very short with his answers and states that he just wants to go to sleep .
[2024-12-28 10:28] LABS: Basophils % 0.4 %; Eosinophils # 0.1 10^3/uL (0.0-0.8); Eosinophils % 1.2 %; Hematocrit 45.8 % (37-53); Lymphocytes # 2.6 10^3/uL (0.8-4.8); Lymphocytes % 24.3 %; Mean Corpuscular HGB Conc 34.1 g/dL (30-55); Mean Corpuscular Hemoglobin 27.3 pg (27-33); Mean Corpuscular Volume 80.2 fl (82-101); Mean Platelet Volume 9.7 fL (7.4-10.4); Monocytes # 1.1 10^3/uL (0.2-0.9); Monocytes % 10.3 %; Neutrophils # 6.77 10^3/uL (1.8-7.7); Neutrophils % 63.3 %; Nucleated Red Blood Cells % 0 %; Platelet Count 336 10^3/cmm (157-399); Red Blood Count 5.71 10^6/uL (3.85-5.65); Red Cell Distribution Width 12.3 % (12.1-15.1); White Blood Count 10.68 10^3/uL (3.29-11.43)
[2024-12-28 10:45] LABS: Alanine Aminotransferase 22 U/L (0-41); Albumin Level 4.7 g/dL (3.5-5.2); Alkaline Phosphatase 70 U/L (40-130); Anion Gap 14.3 (5-19); Aspartate Amino Transferase 17 U/L (0-40); Blood Urea Nitrogen 26 mg/dL (6-20); Calcium 9.2 mg/dL (8.5-10.5); Carbon Dioxide 35 mmol/L (22-29); Chloride 88 mmol/L (98-107); Creatinine Clr Calc Pharmacy 76.0384; Globulin 2.8 g/dL (1.3-4.6); Glomerular Filtration Rate 62.8 mL/min (90-130); Glucose 92 mg/dL (65-115); Lipase 82 U/L (13-60); Osmolality Calculated 282 mOsm/kg (285-295); Potassium 3.3 mmol/L (3.5-5.1); Sodium 134 mmol/L (136-145); Total Bilirubin 1.3 mg/dL (0.15-1.2); Total Protein 7.5 g/dL (6.6-8.7)
[2024-12-28 12:04] VITALS: BP 112/80
--- NOTE | 2024-12-28 12:10 | PC.NURSE ---
Received new orders from Dr. Pierce to consult Med Physician for abnormal lab values and hyperemesis that continues.
[2024-12-28 14:00] VITALS: BP 89/64; PULSE 78; RESP 17; TEMP 36.7; O2SAT 98
--- NOTE | 2024-12-28 14:28 | P.CONIM_ITS ---
Providers/Reason For Consult 2 Consulting Physician/Specialty*: pschiatry Reason for Consult*: n/v/ Attending Physician: Rob Pierce MD History of Present Illness History of Present Illness Lew Barreto is a 34 year old male with a past medical history of polysubstance abuse, who is admitted to neuropsychiatric unit, hospice team was consulted due to complaints of nausea vomiting. Currently patient alert oriented x 3, following all commands he reports nausea vomiting yesterday, but has not had any episodes since then, he did have a bowel movement yesterday but none today, no abdominal pain, no fevers, no chills, he thinks it is from his opiate and drug withdrawals. He denies a history of HIV, does report a history of hepatitis C but has been treated, no lightheadedness, dizziness Review of Systems 2 Card: Denies: chest pain Resp: Denies: dyspnea Medications/Allergies Home Medications ?Medication ?Instructions ?Recorded ?Confirmed ?Last Taken ?Type No Known Home Medications 12/21/2412/02 Unknown History Allergies Allergy/AdvReac Type Severity Reaction Status Date / Time No Known Allergies Allergy Verified 12/20/24 23:21 Current Medications Generic Name Dose Route Start Last Admin Trade Name Freq PRN Reason Stop Dose Admin Calcium Carbonate 1,000 mg 12/24/24 03:09 12/24/24 04:23 Calcium Carbonate 500 Mg Chew Tablet PO 1,000 mg Q4H PRN Administration HEARTBURN Clonidine HCl 0.1 mg 12/22/24 16:25 12/28/24 12:04 Clonidine 0.1 Mg Tablet PO 0.1 mg Q4H PRN Administration RESTLESSNESS Diphenhydramine HCl 50 mg 12/21/24 02:51 12/21/24 22:52 Diphenhydramine 50 Mg/Ml Sdv 1ml IM 50 mg Q4H PRN Administration Severe Aggression Haloperidol Lactate 5 mg 12/21/24 02:51 12/21/24 22:51 Haloperidol Inj 5 Mg/Ml Inj 1 Ml IM 5 mg Q4H PRN Administration Severe Aggression Hydroxyzine Pamoate 50 mg 12/21/24 02:51 12/24/24 15:22 Hydroxyzine 25 Mg Capsule PO 50 mg Q6H PRN Administration ANXIETY Lorazepam 2 mg 12/21/24 02:51 12/21/24 22:51 Lorazepam 2 Mg/Ml Inj 1 Ml IM 2 mg Q4H PRN Administration Severe Aggression Nicotine 1 patch 12/21/24 00:09 12/21/24 00:24 Nicotine 21 Mg Patch TRANSDERMA 1 patch ONCE PRN Administration NICOTINE CRAVINGS Nicotine Polacrilex 2 mg 12/21/24 02:51 12/21/24 08:38 Nicotine 2 Mg Gum BUCCAL 2 mg Q2H PRN Administration NICOTINE WITHDRAWAL Olanzapine 5 mg 12/21/24 02:51 12/21/24 20:59 Olanzapine 5 Mg Odt PO 5 mg Q4H PRN Administration Agitation/Psychosis Ondansetron HCl 4 mg 12/21/24 02:51 12/28/24 12:04 Ondansetron 4 Mg Tablet PO 4 mg Q6H PRN Administration NAUSEA AND VOMITING Promethazine HCl 25 mg 12/21/24 21:30 12/24/24 09:54 Promethazine 25 Mg/Ml Sdv 1 Ml IM 25 mg Q6H PRN Administration NAUSEA Quetiapine Fumarate 50 mg 12/22/24 21:00 12/27/24 21:54 Quetiapine 25 Mg Tablet PO 50 mg BEDTIME EWELINA Administration Quetiapine Fumarate 25 mg 12/22/24 16:25 12/28/24 12:04 Quetiapine 25 Mg Tablet PO 25 mg QID PRN Administration OPIOID WITHDRAWAL Trazodone HCl 50 mg 12/21/24 02:51 12/23/24 01:51 Trazodone 50 Mg Tablet PO 50 mg BEDTIME PRN Administration SLEEP PFSH Acute 2 PFSH: Medical History History of substance abuse Hepatitis C infection s/p treatment, neg viral load Surgical History No history of previous surgery Family History Mother Cancer lymphoma Other Hypertension Denies family history of Diabetes CAD (coronary artery disease) Dementia Chronic kidney disease (CKD) Stroke Social History Quit status (tobacco/nicotine): has quit using Year quit tobacco: 2021 Alcohol intake: former Substance/Drug Use: former Date of last use: July 2022 Number of children: 2 service: No Current occupational status: employed Current occupation: [employer] Vitals/I&O/Wt Last Vital Signs Temp 98.1 F 12/28/24 14:00 Pulse 78 12/28/24 14:00 Resp 17 12/28/24 14:00 BP 89/64 12/28/24 14:00 Pulse Ox 98 12/28/24 14:00 O2 Del Method Room Air 12/28/24 14:00 Physical Exam 2 Const: COMMON NORMALS: no acute distress and patient oriented x3 HENMT: COMMON NORMALS: normocephalic HEAD & SCALP: normocephalic Neck/C-Spine: COMMON NORMALS: no JVD Resp: COMMON NORMALS: normal respiratory effort, No retractions, No use of accessory muscles and clear to auscultation bilaterally AUSCULTATION: clear to auscultation bilaterally Cardio: COMMON NORMALS: no JVD, regular rate, regular rhythm, S1 normal heart sound present and S2 normal heart sound present RATE: regular rate RHYTHM: regular rhythm HEART SOUNDS: S1 normal heart sound present and S2 normal heart sound present GI: COMMON NORMALS: Normal to inspection, nondistended, normoactive bowel sounds present and non-tender Extremity: COMMON NORMALS: no calf tenderness and no pedal edema Neuro: COMMON NORMALS: patient oriented x3 Psych: COMMON NORMALS: mental status grossly normal Data 12/28/24 10:12 12/28/24 10:12 A&P Assessment and plan (1) Dehydration: Plan - IV fluids -CT scan abdomen pelvis, HIV, acute hep panel PDMP PDMP Reviewed: Not Reviewed Consult Attestations 2 Medical Necessity Statement: Patient requires hospitalization for dehydration Diagnoses Dehydration E86.0
--- NOTE | 2024-12-28 14:33 | PC.NURSE ---
Pt cont to have abd pain today and Dr. Pierce ordered a medical consult. Dr. Mckeon came to unit and saw the pt. A stat CT scan of abd and a liter of fluids were ordered. Shortly after Dr. Mckeon left pt came to the nurse station and informed nurses that he did not want to have anymore of this done and wanted to d/c, that he would cont to detox the remainder of the way on his own at home. Dr. Pierce was notified. Pt signed AMA paperwork and belongings sheet. He was notified of the risks of leaving the unit AMA and was advised to return to the ER if any problems were to arise. Pt verbalized understanding of leaving AMA. Physician, DON, and House Sup notified. Left facility with all belongings 1414.
[2024-12-28 14:34] VITALS: BP 89/64; PULSE 78; RESP 17; TEMP 36.7; O2SAT 98
[2024-12-28 15:27] LABS: Procalcitonin 0.03 ng/mL (0-0.5)
[2024-12-29 05:34] LABS: Amylase 91 U/L (21-101)
== END 2024-12-28 14:14 | disposition home or self-care (01) | DRG 885 ==
LOC: ER 23:33 → NP 12-21 03:21
PROVIDERS: Family Medicine; Admitting Provider Psychiatry & Neurology Psychiatry; Emergency Provider Emergency Medicine; Visit Provider Psychiatry & Neurology Psychiatry
DX: F23 Brief psychotic disorder (principal); F11.23 Opioid dependence with withdrawal; R45.851 Suicidal ideations; Z87.891 Personal history of nicotine dependence; F41.9 Anxiety disorder, unspecified
CPT/HCPCS: 36415; 80048; 80053; 80306; 80307; 81001; 82150; 83690; 84145; 85007; 85025; 85027; 86140; 93005; 96372; 97165; 99285; J1200; J1630; J2060; J2550; J9999; Q0162